=== PATIENT | male | born 1955 | race Caucasian/White ===

== ENCOUNTER → 2018-01-10 07:04 | Outpatient (CLI) | payer OTHER, SELFPAY ==
[2018-01-10 07:24] LABS: Abs Immature Grans 0.16 k/cumm (0.0-0.09); Absolute Basophil Count 0.05 k/cumm (0.0-0.2); Absolute Eosinophil Count 0.03 k/cumm (0.0-0.7); Absolute Lymphocyte Count 1.88 k/cumm (1.2-3.4); Absolute Monocyte Count 1.85 k/cumm (0.11-0.7); Basophils % 0.5; Eosinophils % 0.3; HCT 33.9 % (40.0-50.0); HGB 11.1 g/dL (13.5-17.5); Immature Grans % 1.5; Lymphocytes % 17.3; Mean Corp. HGB Concentration 32.7 g/dL (32.0-36.0); Mean Corpuscular Volume 94.7 fL (80-95); Mean Platelet Volume 9.1 fL (8.0-11.0); Neutrophils % 63.4; RBC 3.58 m/cumm (4.50-6.00); RBC Distribution Width 14.8 % (11.8-14.1); White Blood Cell Count 10.87 k/cumm (4.4-10.8)
[2018-01-10 07:32] LABS: ALT 21 U/L (12-78); AST 19 U/L (15-37); Albumin 3.5 g/dL (3.4-5.0); Alkaline Phosphatase 142 U/L (46-116); Anion Gap 8.8 mmol/L (3-11); BUN 16 mg/dL (7-18); Bilirubin, Total 0.2 mg/dL (0.2-1.0); CO2 26.2 mmol/L (21.0-32.0); CREATININE 1.27 mg/dL (0.70-1.30); Calcium 8.8 mg/dL (8.5-10.1); Chloride 103 mmol/L (98-107); Estimated GFR 57.28 (mL/min/1.73m2); Glucose 111 mg/dL (70-100); Magnesium 2.2 mg/dL (1.8-2.4); Potassium 5.1 mmol/L (3.5-5.1); Sodium 138 mmol/L (136-145)
[2018-01-10 08:09] LABS: Absolute Neutrophil Count 6.89 k/cumm (1.2-6.7)
[2018-01-10 08:12] LABS: Platelet Count 1073 x1000/uL (130-400)
[2018-01-10 08:13] LABS: Anisocytosis 1+; Diff Comment Diff Reviewed; Polychromasia Present
[2018-01-10 08:14] LABS: Poikilocytes 1+
== END ==
PROVIDERS: PCP Nurse Practitioner Family; Visit Provider Internal Medicine
DX: C79.10 Secondary malignant neoplasm of unspecified urinary organs (principal)
CPT/HCPCS: 36415; 80053; 83735; 85025

== ENCOUNTER → 2018-01-17 07:13 | Outpatient (CLI) | payer OTHER, SELFPAY ==
[2018-01-17 07:46] LABS: Abs Immature Grans 0.02 k/cumm (0.0-0.09); Absolute Basophil Count 0.04 k/cumm (0.0-0.2); Absolute Eosinophil Count 0.01 k/cumm (0.0-0.7); Absolute Lymphocyte Count 1.36 k/cumm (1.2-3.4); Absolute Monocyte Count 0.17 k/cumm (0.11-0.7); Absolute Neutrophil Count 7.63 k/cumm (1.2-6.7); Basophils % 0.4; Eosinophils % 0.1; HCT 33.9 % (40.0-50.0); HGB 11.2 g/dL (13.5-17.5); Immature Grans % 0.2; Lymphocytes % 14.7; Mean Corpuscular Hemoglobin 30.9 pg (27.0-33.0); Mean Corpuscular Volume 93.4 fL (80-95); Mean Platelet Volume 9.6 fL (8.0-11.0); Monocytes % 1.8; Neutrophils % 82.8; RBC 3.63 m/cumm (4.50-6.00); RBC Distribution Width 14.9 % (11.8-14.1); White Blood Cell Count 9.23 k/cumm (4.4-10.8)
[2018-01-17 07:50] LABS: Platelet Count 503 x1000/uL (130-400)
[2018-01-17 08:00] LABS: ALT 23 U/L (12-78); AST 17 U/L (15-37); Albumin 3.6 g/dL (3.4-5.0); Alkaline Phosphatase 147 U/L (46-116); Anion Gap 9.7 mmol/L (3-11); BUN 17 mg/dL (7-18); Bilirubin, Total 0.3 mg/dL (0.2-1.0); CO2 26.3 mmol/L (21.0-32.0); CREATININE 1.07 mg/dL (0.70-1.30); Calcium 8.7 mg/dL (8.5-10.1); Chloride 99 mmol/L (98-107); Glucose 103 mg/dL (70-100); Magnesium 1.7 mg/dL (1.8-2.4); Potassium 4.7 mmol/L (3.5-5.1); Sodium 135 mmol/L (136-145); Total Protein 8.1 g/dL (6.4-8.2)
== END ==
PROVIDERS: PCP Nurse Practitioner Family; Visit Provider Internal Medicine
DX: C79.10 Secondary malignant neoplasm of unspecified urinary organs (principal)
CPT/HCPCS: 36415; 80053; 83735; 85025

== ENCOUNTER → 2018-01-31 07:00 | Outpatient (CLI) | payer OTHER, SELFPAY ==
[2018-01-31 07:27] LABS: Abs Immature Grans 1.78 k/cumm (0.0-0.09); HCT 30.9 % (40.0-50.0); HGB 9.9 g/dL (13.5-17.5); Mean Corpuscular Hemoglobin 30.1 pg (27.0-33.0); Mean Corpuscular Volume 93.9 fL (80-95); Mean Platelet Volume 10.4 fL (8.0-11.0); RBC 3.29 m/cumm (4.50-6.00); RBC Distribution Width 16.7 % (11.8-14.1)
[2018-01-31 07:38] LABS: ALT 16 U/L (12-78); AST 13 U/L (15-37); Albumin 3.1 g/dL (3.4-5.0); Alkaline Phosphatase 241 U/L (46-116); BUN 9 mg/dL (7-18); Bilirubin, Total 0.1 mg/dL (0.2-1.0); Calcium 8.1 mg/dL (8.5-10.1); Chloride 106 mmol/L (98-107); Glucose 118 mg/dL (70-100); Magnesium 1.6 mg/dL (1.8-2.4); Potassium 4.1 mmol/L (3.5-5.1); Sodium 139 mmol/L (136-145); Total Protein 6.9 g/dL (6.4-8.2)
[2018-01-31 08:05] LABS: Absolute Eosinophil Count 0.41 k/cumm (0.0-0.7); Absolute Lymphocyte Count 2.49 k/cumm (1.2-3.4); Absolute Monocyte Count 1.24 k/cumm (0.11-0.7); Absolute Neutrophil Count 36.09 k/cumm (1.2-6.7); Nucleated RBC 1 /100WBC; Platelet Count 462 x1000/uL (130-400)
[2018-01-31 08:06] LABS: Hypochromasia 2+; Polychromasia Present
[2018-01-31 08:10] LABS: White Blood Cell Count 41.48 k/cumm (4.4-10.8)
== END ==
PROVIDERS: PCP Nurse Practitioner Family; Visit Provider Nurse Practitioner Adult Health
DX: C79.10 Secondary malignant neoplasm of unspecified urinary organs (principal)
CPT/HCPCS: 36415; 80053; 83735; 85025

== ENCOUNTER → 2018-02-01 11:10 | Outpatient (REF) | payer OTHER, SELFPAY | LOC: LBN 11:10 | PROVIDERS: PCP Nurse Practitioner Family; Visit Provider Nurse Practitioner Adult Health | DX: C79.10 Secondary malignant neoplasm of unspecified urinary organs (principal); C66.2 Malignant neoplasm of left ureter; L08.9 Local infection of the skin and subcutaneous tissue, unspecified | CPT/HCPCS: 87077; 87070; 87186; 87205 ==

== ENCOUNTER 2018-02-08 07:14 | Outpatient (CLI) | payer OTHER, SELFPAY ==
[2018-02-08 08:06] LABS: Abs Immature Grans 0.05 k/cumm (0.0-0.09); Absolute Basophil Count 0.07 k/cumm (0.0-0.2); Absolute Lymphocyte Count 1.49 k/cumm (1.2-3.4); Basophils % 0.5; Eosinophils % 0.5; HCT 34.5 % (40.0-50.0); Immature Grans % 0.3; Lymphocytes % 10.1; Mean Corp. HGB Concentration 31.9 g/dL (32.0-36.0); Mean Corpuscular Hemoglobin 30.6 pg (27.0-33.0); Mean Corpuscular Volume 95.8 fL (80-95); Mean Platelet Volume 10.3 fL (8.0-11.0); Monocytes % 14.1; Neutrophils % 74.5; RBC Distribution Width 18.4 % (11.8-14.1); White Blood Cell Count 14.72 k/cumm (4.4-10.8)
[2018-02-08 08:10] LABS: Absolute Eosinophil Count 0.07 k/cumm (0.0-0.7); Absolute Monocyte Count 2.08 k/cumm (0.11-0.7); Absolute Neutrophil Count 10.97 k/cumm (1.2-6.7)
[2018-02-08 08:23] LABS: ALT 17 U/L (12-78); AST 19 U/L (15-37); Albumin 3.8 g/dL (3.4-5.0); Alkaline Phosphatase 179 U/L (46-116); Anion Gap 7.9 mmol/L (3-11); BUN 15 mg/dL (7-18); Bilirubin, Total 0.4 mg/dL (0.2-1.0); CO2 26.1 mmol/L (21.0-32.0); CREATININE 1.21 mg/dL (0.70-1.30); Calcium 9.1 mg/dL (8.5-10.1); Chloride 103 mmol/L (98-107); Glucose 91 mg/dL (70-100); Magnesium 2.1 mg/dL (1.8-2.4); Potassium 5.1 mmol/L (3.5-5.1); Sodium 137 mmol/L (136-145); Total Protein 7.7 g/dL (6.4-8.2)
[2018-02-08 08:24] LABS: Platelet Count 717 x1000/uL (130-400)
[2018-02-08 08:26] LABS: Anisocytosis 2+; Diff Comment Manual Differential; Poikilocytes 1+
== END 2018-02-08 07:34 ==
PROVIDERS: PCP Nurse Practitioner Family; Visit Provider Internal Medicine
DX: C79.10 Secondary malignant neoplasm of unspecified urinary organs (principal)
CPT/HCPCS: 36415; 80053; 83735; 85025

== ENCOUNTER 2018-02-21 07:01 | Outpatient (CLI) | payer OTHER, SELFPAY ==
[2018-02-21 07:20] LABS: Absolute Basophil Count 0.07 k/cumm (0.0-0.2); Absolute Eosinophil Count 0.28 k/cumm (0.0-0.7); Absolute Lymphocyte Count 1.06 k/cumm (1.2-3.4); Absolute Monocyte Count 0.94 k/cumm (0.11-0.7); Absolute Neutrophil Count 4.21 k/cumm (1.2-6.7); Basophils % 1.1; Eosinophils % 4.3; HCT 37.1 % (40.0-50.0); HGB 11.9 g/dL (13.5-17.5); Lymphocytes % 16.2; Mean Corp. HGB Concentration 32.1 g/dL (32.0-36.0); Mean Corpuscular Volume 96.6 fL (80-95); Mean Platelet Volume 10.7 fL (8.0-11.0); Monocytes % 14.3; Neutrophils % 64.1; Platelet Count 266 x1000/uL (130-400); RBC 3.84 m/cumm (4.50-6.00); RBC Distribution Width 18.1 % (11.8-14.1); White Blood Cell Count 6.56 k/cumm (4.4-10.8)
[2018-02-21 07:42] LABS: ALT 18 U/L (12-78); AST 16 U/L (15-37); Albumin 3.8 g/dL (3.4-5.0); Alkaline Phosphatase 147 U/L (46-116); Anion Gap 7.5 mmol/L (3-11); BUN 19 mg/dL (7-18); Bilirubin, Total 0.3 mg/dL (0.2-1.0); CO2 28.5 mmol/L (21.0-32.0); CREATININE 1.02 mg/dL (0.70-1.30); Calcium 8.8 mg/dL (8.5-10.1); Chloride 104 mmol/L (98-107); Glucose 92 mg/dL (70-100); Magnesium 1.8 mg/dL (1.8-2.4); Potassium 4.8 mmol/L (3.5-5.1); Sodium 140 mmol/L (136-145); Total Protein 8.1 g/dL (6.4-8.2)
== END 2018-02-21 07:21 ==
PROVIDERS: PCP Nurse Practitioner Family; Visit Provider Internal Medicine
DX: C79.10 Secondary malignant neoplasm of unspecified urinary organs (principal)
CPT/HCPCS: 36415; 80053; 83735; 85025

== ENCOUNTER 2018-03-01 06:59 | Outpatient (CLI) | payer OTHER, SELFPAY ==
[2018-03-01 07:25] LABS: Absolute Basophil Count 0.03 k/cumm (0.0-0.2); Absolute Lymphocyte Count 0.99 k/cumm (1.2-3.4); Absolute Monocyte Count 0.08 k/cumm (0.11-0.7); Absolute Neutrophil Count 3.42 k/cumm (1.2-6.7); Basophils % 0.6; Eosinophils % 2.2; HGB 11.5 g/dL (13.5-17.5); Lymphocytes % 21.4; Mean Corp. HGB Concentration 31.9 g/dL (32.0-36.0); Mean Corpuscular Hemoglobin 30.8 pg (27.0-33.0); Mean Corpuscular Volume 96.5 fL (80-95); Mean Platelet Volume 10.5 fL (8.0-11.0); Monocytes % 1.7; Neutrophils % 74.1; Platelet Count 201 x1000/uL (130-400); RBC 3.73 m/cumm (4.50-6.00); RBC Distribution Width 16.5 % (11.8-14.1); White Blood Cell Count 4.62 k/cumm (4.4-10.8)
[2018-03-01 07:43] LABS: ALT 22 U/L (12-78); AST 16 U/L (15-37); Albumin 3.6 g/dL (3.4-5.0); Alkaline Phosphatase 148 U/L (46-116); Anion Gap 9.8 mmol/L (3-11); BUN 21 mg/dL (7-18); Bilirubin, Total 0.4 mg/dL (0.2-1.0); CO2 24.2 mmol/L (21.0-32.0); CREATININE 0.93 mg/dL (0.70-1.30); Calcium 9.1 mg/dL (8.5-10.1); Chloride 102 mmol/L (98-107); Glucose 109 mg/dL (70-100); Magnesium 1.9 mg/dL (1.8-2.4); Potassium 4.8 mmol/L (3.5-5.1); Sodium 136 mmol/L (136-145); Total Protein 7.6 g/dL (6.4-8.2)
== END 2018-03-01 07:19 ==
PROVIDERS: PCP Nurse Practitioner Family; Visit Provider Internal Medicine
DX: C79.10 Secondary malignant neoplasm of unspecified urinary organs (principal)
CPT/HCPCS: 36415; 80053; 83735; 85025

== ENCOUNTER 2018-03-14 12:30 | Outpatient (CLI) | payer OTHER, SELFPAY ==
[2018-03-14 12:50] LABS: Abs Immature Grans 0.28 k/cumm (0.0-0.09); HCT 31.9 % (40.0-50.0); HGB 10.3 g/dL (13.5-17.5); Mean Corp. HGB Concentration 32.3 g/dL (32.0-36.0); Mean Corpuscular Hemoglobin 31.4 pg (27.0-33.0); Mean Corpuscular Volume 97.3 fL (80-95); Mean Platelet Volume 10.2 fL (8.0-11.0); Platelet Count 261 x1000/uL (130-400); RBC 3.28 m/cumm (4.50-6.00); RBC Distribution Width 16.2 % (11.8-14.1)
[2018-03-14 13:02] LABS: ALT 22 U/L (12-78); AST 14 U/L (15-37); Albumin 3.5 g/dL (3.4-5.0); Alkaline Phosphatase 226 U/L (46-116); Anion Gap 7.3 mmol/L (3-11); BUN 11 mg/dL (7-18); Bilirubin, Total 0.1 mg/dL (0.2-1.0); CO2 29.7 mmol/L (21.0-32.0); CREATININE 1.02 mg/dL (0.70-1.30); Calcium 8.8 mg/dL (8.5-10.1); Chloride 104 mmol/L (98-107); Glucose 98 mg/dL (70-100); Magnesium 1.8 mg/dL (1.8-2.4); Potassium 3.9 mmol/L (3.5-5.1); Sodium 141 mmol/L (136-145); Total Protein 7.2 g/dL (6.4-8.2)
[2018-03-14 13:16] LABS: Absolute Monocyte Count 2.42 k/cumm (0.11-0.7); Absolute Neutrophil Count 17.38 k/cumm (1.2-6.7); Diff Comment Manual Differential
[2018-03-14 13:17] LABS: Anisocytosis 1+; Poikilocytes 1+; Polychromasia Present
== END 2018-03-14 12:50 ==
PROVIDERS: PCP Nurse Practitioner Family; Visit Provider Internal Medicine
DX: C79.10 Secondary malignant neoplasm of unspecified urinary organs (principal)
CPT/HCPCS: 36415; 80053; 83735; 85025

== ENCOUNTER 2018-03-22 06:57 | Outpatient (CLI) | payer OTHER, SELFPAY ==
[2018-03-22 07:18] LABS: Abs Immature Grans 0.03 k/cumm (0.0-0.09); Absolute Basophil Count 0.04 k/cumm (0.0-0.2); Absolute Eosinophil Count 0.01 k/cumm (0.0-0.7); Absolute Lymphocyte Count 1.37 k/cumm (1.2-3.4); Absolute Monocyte Count 0.39 k/cumm (0.11-0.7); Absolute Neutrophil Count 5.01 k/cumm (1.2-6.7); Basophils % 0.6; Eosinophils % 0.1; HCT 31.4 % (40.0-50.0); HGB 10.2 g/dL (13.5-17.5); Immature Grans % 0.4; Mean Corp. HGB Concentration 32.5 g/dL (32.0-36.0); Mean Corpuscular Hemoglobin 31.5 pg (27.0-33.0); Mean Corpuscular Volume 96.9 fL (80-95); Mean Platelet Volume 9.8 fL (8.0-11.0); Monocytes % 5.7; Neutrophils % 73.2; Platelet Count 451 x1000/uL (130-400); RBC 3.24 m/cumm (4.50-6.00); RBC Distribution Width 16.3 % (11.8-14.1); White Blood Cell Count 6.85 k/cumm (4.4-10.8)
[2018-03-22 07:47] LABS: ALT 28 U/L (12-78); AST 19 U/L (15-37); Albumin 3.6 g/dL (3.4-5.0); Alkaline Phosphatase 164 U/L (46-116); Anion Gap 9.5 mmol/L (3-11); BUN 19 mg/dL (7-18); Bilirubin, Total 0.4 mg/dL (0.2-1.0); CO2 25.5 mmol/L (21.0-32.0); CREATININE 0.95 mg/dL (0.70-1.30); Calcium 8.4 mg/dL (8.5-10.1); Chloride 104 mmol/L (98-107); Glucose 109 mg/dL (70-100); Magnesium 1.8 mg/dL (1.8-2.4); Potassium 5.1 mmol/L (3.5-5.1); Sodium 139 mmol/L (136-145); Total Protein 7.4 g/dL (6.4-8.2)
== END 2018-03-22 07:17 ==
PROVIDERS: PCP Nurse Practitioner Family; Visit Provider Internal Medicine
DX: C79.10 Secondary malignant neoplasm of unspecified urinary organs (principal)
CPT/HCPCS: 36415; 80053; 83735; 85025

== ENCOUNTER 2018-09-12 07:01 | Outpatient (CLI) | payer OTHER, SELFPAY ==
[2018-09-12 07:27] LABS: Abs Immature Grans 0.01 k/cumm (0.0-0.09); Absolute Basophil Count 0.03 k/cumm (0.0-0.2); Absolute Eosinophil Count 0.15 k/cumm (0.0-0.7); Absolute Lymphocyte Count 1.69 k/cumm (1.2-3.4); Absolute Monocyte Count 0.85 k/cumm (0.11-0.7); Absolute Neutrophil Count 3.08 k/cumm (1.2-6.7); Basophils % 0.5; Eosinophils % 2.6; HCT 38.7 % (40.0-50.0); HGB 12.6 g/dL (13.5-17.5); Immature Grans % 0.2; Lymphocytes % 29.1; Mean Corp. HGB Concentration 32.6 g/dL (32.0-36.0); Mean Corpuscular Volume 95.1 fL (80-95); Mean Platelet Volume 10.3 fL (8.0-11.0); Monocytes % 14.6; Platelet Count 276 x1000/uL (130-400); RBC 4.07 m/cumm (4.50-6.00); RBC Distribution Width 14.9 % (11.8-14.1); White Blood Cell Count 5.81 k/cumm (4.4-10.8)
[2018-09-12 07:37] LABS: ALT 23 U/L (12-78); AST 19 U/L (15-37); Albumin 3.7 g/dL (3.4-5.0); Alkaline Phosphatase 160 U/L (46-116); Anion Gap 8.4 mmol/L (3-11); BUN 12 mg/dL (7-18); Bilirubin, Total 0.3 mg/dL (0.2-1.0); CO2 27.6 mmol/L (21.0-32.0); CREATININE 1.06 mg/dL (0.70-1.30); Calcium 8.6 mg/dL (8.5-10.1); Chloride 104 mmol/L (98-107); Glucose 116 mg/dL (70-100); Potassium 4.4 mmol/L (3.5-5.1); Sodium 140 mmol/L (136-145); Total Protein 7.5 g/dL (6.4-8.2)
== END 2018-09-12 07:21 ==
PROVIDERS: PCP Nurse Practitioner Family; Visit Provider Internal Medicine
DX: C79.10 Secondary malignant neoplasm of unspecified urinary organs (principal)
CPT/HCPCS: 36415; 80053; 85025

== ENCOUNTER 2018-09-17 15:00 | Emergency (ER) | payer OTHER, SELFPAY ==
--- NOTE | 2018-09-17 15:01 | W.ED.GENAD ---
Discharge Plan Disposition Patient Disposition: HOME Condition: Stable Discharge Details Chief Complaint: Abd Prob Clinical Impression: Abdominal pain Primary Care Provider: Felicia Juan ED Provider: Jimbo Fall Home Meds and New Rx's Prescriptions: No Action acetaminophen [Acetaminophen Extra Strength] 500 MG tablet 1,000 mg PO Q6H PRNRF: 0 diphenhydramine HCl 25 MG capsule 50 mg PO Q6H PRNRF: 0 docusate sodium [Colace] 100 MG capsule 100 mg PO BID PRNRF: 0 sennosides [senna] 8.6 MG tablet 2 tab PO BID RF: 0 Discharge Instructions Instructions: Abdominal Pain (ED) Additional Instructions: 1. Drink plenty of fluids. 2. Continue all medications as prescribed. 3. Acetaminophen 1000mg every 4 hours (up to 5 time a day) and/or ibuprofen 600mg every 6 hours as needed for fever or pain. Return to the Emergency Department (ED) if your condition worsens, does not improve as expected, or for ANY other concerns. Specifically, return if you have new or uncontrolled pain, worsening fever, difficulty breathing, vomiting, or are unable to drink fluids. Medical Decision Making 63-year-old with a history of complex lower abdominal surgery and XRT. His original surgery was complicated by bowel perforation and abnormal mesentery. Has been asymptomatic for the past year since his bowel perf repair. Presents with 12 hours of persistent lower abdominal/suprapubic pain. Has no associated fever/chills, abdominal bloating, change in bowel habits, or urinary symptoms. Nonfocal exam except for dry mucosa and minimal suprapubic tenderness (pain out of proportion to exam). Mild clinical improvement with IV hydration and limited IV hydromorphone. Labs normal including a normal leukocytosis, anion gap, and lactate. Abdominal/pelvic CT similar in appearance to one performed last year with a mesenteric scroll but no other significant stigmata of bowel obstruction/ischemia. Patient remained stable and mildly improved on multiple re-evaluations. Discussed unclear etiology of pain including lack of obvious surgical etiology by CT scan and other biomarkers. Discharged home with a plan for OTC analgesia, continued oral hydration, and follow-up. Pt evaluated immediately prior to discharge with improved symptoms, normal vital signs, and tolerating PO. The patient feels appropriate for discharge home. Discussed clinical/diagnostic findings. Discharged with a clear plan for outpatient follow up. Given usual and customary return instructions prior to discharge. Medical Records Medical records reviewed: Yes I reviewed the patient's medical records. Lab Data Lab results reviewed: Yes I reviewed the patient's lab results. Lab results narrative: Lab Results 09/17/18 09/17/18 09/17/18 Range/Units 15:10 15:10 17:25 WBC 10.68 (4.4-10.8) k/cumm RBC 4.40 L (4.50-6.00) m/cumm Hgb 13.7 (13.5-17.5) g/dL Hct 41.1 (40.0-50.0) % MCV 93.4 (80-95) fL MCH 31.1 (27.0-33.0) pg MCHC 33.3 (32.0-36.0) g/dL RDW 14.9 H (11.8-14.1) % Plt Count 310 (130-400) x1000/uL MPV 10.0 (8.0-11.0) fL Immature Gran % 0.2 Neutrophils % 88.0 Lymphocytes % 7.2 Monocytes % 4.1 Eosinophils % 0.3 Basophils % 0.2 Absolute Neutrophils 9.40 H (1.2-6.7) k/cumm Absolute Lymphocytes 0.77 L (1.2-3.4) k/cumm Absolute Monocytes 0.44 (0.11-0.7) k/cumm Absolute Eosinophils 0.03 (0.0-0.7) k/cumm Absolute Basophils 0.02 (0.0-0.2) k/cumm Sodium 138 (136-145) mmol/L Potassium 4.5 (3.5-5.1) mmol/L Chloride 101 (98-107) mmol/L Carbon Dioxide 25.9 (21.0-32.0) mmol/L Anion Gap 11.1 H (3-11) mmol/L BUN 17 (7-18) mg/dL Creatinine 1.15 (0.70-1.30) mg/dL Estimated GFR/1.73 m2 >= 60.00 (mL/min/1.73m2) Glucose 121 H (70-100) mg/dL Lactate (0.6-1.4) mmol/l Calcium 9.5 (8.5-10.1) mg/dL Urine Color Yellow (Yellow) Urine Clarity Clear Urine pH 7.0 (5-8) Ur Specific [place] 1.010 (1.005-1.025) Urine Protein 30 H (Negative) mg/dL Urine Ketones Negative (Negative) mg/dL Urine Blood Negative (Negative) Urine Nitrite Negative (Negative) Urine Bilirubin Negative (Negative) Urine Urobilinogen 0.2 (Up TO 0.2) EU/dL Ur Leukocyte Esterase Negative (Negative) Urine RBC Negative (0-2) Urine WBC 0-2 (0-5) HPF Ur Epithelial Cells Rare (Negative) HPF Urine Crystals (Negative) HPF Urine Bacteria Negative (Negative) HPF Urine Casts Negative (Negative) LPF Urine Mucus Trace (Negative) Ur Culture Indicated? No Urine Glucose Negative (Negative) mg/dL 09/17/18 Range/Units 19:09 WBC (4.4-10.8) k/cumm RBC (4.50-6.00) m/cumm Hgb (13.5-17.5) g/dL Hct (40.0-50.0) % MCV (80-95) fL MCH (27.0-33.0) pg MCHC (32.0-36.0) g/dL RDW (11.8-14.1) % Plt Count (130-400) x1000/uL MPV (8.0-11.0) fL Immature Gran % Neutrophils % Lymphocytes % Monocytes % Eosinophils % Basophils % Absolute Neutrophils (1.2-6.7) k/cumm Absolute Lymphocytes (1.2-3.4) k/cumm Absolute Monocytes (0.11-0.7) k/cumm Absolute Eosinophils (0.0-0.7) k/cumm Absolute Basophils (0.0-0.2) k/cumm Sodium (136-145) mmol/L Potassium (3.5-5.1) mmol/L Chloride (98-107) mmol/L Carbon Dioxide (21.0-32.0) mmol/L Anion Gap (3-11) mmol/L BUN (7-18) mg/dL Creatinine (0.70-1.30) mg/dL Estimated GFR/1.73 m2 (mL/min/1.73m2) Glucose (70-100) mg/dL Lactate 1.2 (0.6-1.4) mmol/l Calcium (8.5-10.1) mg/dL Urine Color (Yellow) Urine Clarity Urine pH (5-8) Ur Specific [place] (1.005-1.025) Urine Protein (Negative) mg/dL Urine Ketones (Negative) mg/dL Urine Blood (Negative) Urine Nitrite (Negative) Urine Bilirubin (Negative) Urine Urobilinogen (Up TO 0.2) EU/dL Ur Leukocyte Esterase (Negative) Urine RBC (0-2) Urine WBC (0-5) HPF Ur Epithelial Cells (Negative) HPF Urine Crystals (Negative) HPF Urine Bacteria (Negative) HPF Urine Casts (Negative) LPF Urine Mucus (Negative) Ur Culture Indicated? Urine Glucose (Negative) mg/dL HPI 63 yo male with a history of a robotic left nephroureterectomy on 09/27/[address] [place] [facility] presented here shortly after his surgery comes with n/v and had a CT diagnostic for a possible sbo. He is was transferred to [facility] [place], treated conservatively, and then d/c'd on 10/05. He subsequently returned with recurrent emesis and ultimately was again transfered to [facility] for surgical repair of a bowel perforation. He has had an unremarkable post procedural course until today when he developed lower abdominal pain. His pain is localized in the suprapubic region at the site of his previous surgeries. He denies fevers/chills, significant nausea, change in bowel habits, or abdominal distention. He has had no urinary symptoms. He also denies chest pain dyspnea, palpitations, or focal extremity swelling or pain. General Date/Time Provider Initiated Documentation: 09/17/18 15:01. Related Data Home Medications Medication Instructions Recorded Confirmed acetaminophen [Acetaminophen Extra 1,000 mg PO Q6H PRN 09/30/17 09/17/18 Strength] diphenhydramine HCl 50 mg PO Q6H PRN 09/30/17 09/17/18 docusate sodium [Colace] 100 mg PO BID PRN 09/30/17 09/17/18 sennosides [Senna] 2 tab PO BID 10/07/17 09/17/18 Allergies Allergy/AdvReac Type Severity Reaction Status Date / Time No Known Allergies Allergy Unverified 09/17/18 15:08 Review of Systems Review of Systems All systems are reviewed and are unremarkable except as noted in HPI and below: CONSTITUTIONAL: no fevers/chills, no weakness or change in appetite EYES: no change in vision HEENT: no throat pain or difficulty swallowing; no neck pain CARDIOVASCULAR: no chest pain, palpitations, leg swelling, or diaphoresis RESPIRATORY: no cough, dyspnea, wheezing GASTROINTESTINAL: abdominal pain localized to the lower abdomen, no hematochezia, melena, nausea/emesis GENITOURINARY: no dysuria, flank pain, MUSCULOSKELETAL: no pack pain, myalgias, arthralgias INTEGUMENTARY: no rash, no wounds NEUROLOGIC: no headache, focal weakness, difficulty with speech, numbness PSYCHIATRIC: no confusion, no anxiety HEME: no easy bruising or bleeding ALLERGIC: no urticaria [facility] Social History Smoking/Tobacco Use Status: Former Tobacco Use Alcohol Intake: never Drug use: Never Substance use type: marijuana Do you feel safe at home: Yes Do you feel safe in your relationship?: Yes Exam Narrative Exam Narrative: Nursing note and vital signs have been reviewed and noted. GENERAL: alert, active, no acute distress, well-nourished HEENT: atraumatic/normocephalic, PERRLA, EOMI, conjunctiva clear, external ears/canals normal, dry oral mucosa NECK: supple, full range of motion, no mass, normal lymphadenopathy, no thyromegaly CARDIOVASCULAR: RRR, no murmurs, nl pulses, no edema PULMONARY: nl effort, no audible wheezing or stridor, nl breath sounds with no focal deficit. no chest wall tenderness ABDOMEN: soft, non-distended, no mass, no organomegaly; minimal suprapubic tenderness with pain out of proportion to exam. EXTREMITY: normal muscle tone, all joints with FROM, no deformity or tenderness SKIN: no exanthem appreciated NEURO: gross motor exam normal, normal stance and gait PSYCH: alert and oriented,
[2018-09-17 15:04] VITALS: BP 121/103; PULSE 61; RESP 20; TEMP 37.1; O2SAT 98
--- NOTE | 2018-09-17 15:05 | ED.GENADUL_ITS ---
Discharge Plan Disposition Patient Disposition: HOME Condition: Stable Discharge Details Chief Complaint: Abd Prob Clinical Impression: Abdominal pain Primary Care Provider: Felicia Juan ED Provider: Jimbo Fall Home Meds and New Rx's Prescriptions: No Action acetaminophen [Acetaminophen Extra Strength] 500 MG tablet 1,000 mg PO Q6H PRNRF: 0 diphenhydramine HCl 25 MG capsule 50 mg PO Q6H PRNRF: 0 docusate sodium [Colace] 100 MG capsule 100 mg PO BID PRNRF: 0 sennosides [senna] 8.6 MG tablet 2 tab PO BID RF: 0 Discharge Instructions Instructions: Abdominal Pain (ED) Additional Instructions: 1. Drink plenty of fluids. 2. Continue all medications as prescribed. 3. Acetaminophen 1000mg every 4 hours (up to 5 time a day) and/or ibuprofen 600mg every 6 hours as needed for fever or pain. Return to the Emergency Department (ED) if your condition worsens, does not improve as expected, or for ANY other concerns. Specifically, return if you have new or uncontrolled pain, worsening fever, difficulty breathing, vomiting, or are unable to drink fluids. Medical Decision Making 63-year-old with a history of complex lower abdominal surgery and XRT. His original surgery was complicated by bowel perforation and abnormal mesentery. Has been asymptomatic for the past year since his bowel perf repair. Presents with 12 hours of persistent lower abdominal/suprapubic pain. Has no associated fever/chills, abdominal bloating, change in bowel habits, or urinary symptoms. Nonfocal exam except for dry mucosa and minimal suprapubic tenderness (pain out of proportion to exam). Mild clinical improvement with IV hydration and limited IV hydromorphone. Labs normal including a normal leukocytosis, anion gap, and lactate. Abdominal/pelvic CT similar in appearance to one performed last year with a mesenteric scroll but no other significant stigmata of bowel obstruction/ischemia. Patient remained stable and mildly improved on multiple re-evaluations. Discussed unclear etiology of pain including lack of obvious surgical etiology by CT scan and other biomarkers. Discharged home with a plan for OTC analgesia, continued oral hydration, and follow-up. Pt evaluated immediately prior to discharge with improved symptoms, normal vital signs, and tolerating PO. The patient feels appropriate for discharge home. Discussed clinical/diagnostic findings. Discharged with a clear plan for outpati ent follow up. Given usual and customary return instructions prior to discharge. Medical Records Medical records reviewed: Yes I reviewed the patient's medical records. Lab Data Lab results reviewed: Yes I reviewed the patient's lab results. Lab results narrative: Lab Results 09/17/18 09/17/18 09/17/18 Range/Units 15:10 15:10 17:25 WBC 10.68 (4.4-10.8) k/cumm RBC 4.40 L (4.50-6.00) m/cumm Hgb 13.7 (13.5-17.5) g/dL Hct 41.1 (40.0-50.0) % MCV 93.4 (80-95) fL MCH 31.1 (27.0-33.0) pg MCHC 33.3 (32.0-36.0) g/dL RDW 14.9 H (11.8-14.1) % Plt Count 310 (130-400) x1000/uL MPV 10.0 (8.0-11.0) fL Immature Gran % 0.2 Neutrophils % 88.0 Lymphocytes % 7.2 Monocytes % 4.1 Eosinophils % 0.3 Basophils % 0.2 Absolute Neutrophils 9.40 H (1.2-6.7) k/cumm Absolute Lymphocytes 0.77 L (1.2-3.4) k/cumm Absolute Monocytes 0.44 (0.11-0.7) k/cumm Absolute Eosinophils 0.03 (0.0-0.7) k/cumm Absolute Basophils 0.02 (0.0-0.2) k/cumm Sodium 138 (136-145) mmol/L Potassium 4.5 (3.5-5.1) mmol/L Chloride 101 (98-107) mmol/L Carbon Dioxide 25.9 (21.0-32.0) mmol/L Anion Gap 11.1 H (3-11) mmol/L BUN 17 (7-18) mg/dL Creatinine 1.15 (0.70-1.30) mg/dL Estimated GFR/1.73 m2 >= 60.00 (mL/min/1.73m2) Glucose 121 H (70-100) mg/dL Lactate (0.6-1.4) mmol/l Calcium 9.5 (8.5-10.1) mg/dL Urine Color Yellow (Yellow) Urine Clarity Clear Urine pH 7.0 (5-8) Ur Specific [place] 1.010 (1.005-1.025) Urine Protein 30 H (Negative) mg/dL Urine Ketones Negative (Negative) mg/dL Urine Blood Negative (Negative) Urine Nitrite Negative (Negative) Urine Bilirubin Negative (Negative) Urine Urobilinogen 0.2 (Up TO 0.2) EU/dL Ur Leukocyte Esterase Negative (Negative) Urine RBC Negative (0-2) Urine WBC 0-2 (0-5) HPF Ur Epithelial Cells Rare (Negative) HPF Urine Crystals (Negative) HPF Urine Bacteria Negative (Negative) HPF Urine Casts Negative (Negative) LPF Urine Mucus Trace (Negative) Ur Culture Indicated? No Urine Glucose Negative (Negative) mg/dL 09/17/18 Range/Units 19:09 WBC (4.4-10.8) k/cumm RBC (4.50-6.00) m/cumm Hgb (13.5-17.5) g/dL Hct (40.0-50.0) % MCV (80-95) fL MCH (27.0-33.0) pg MCHC (32.0-36.0) g/dL RDW (11.8-14.1) % Plt Count (130-400) x1000/uL MPV (8.0-11.0) fL Immature Gran % Neutrophils % Lymphocytes % Monocytes % Eosinophils % Basophils % Absolute Neutrophils (1.2-6.7) k/cumm Absolute Lymphocytes (1.2-3.4) k/cumm Absolute Monocytes (0.11-0.7) k/cumm Absolute Eosinophils (0.0-0.7) k/cumm Absolute Basophils (0.0-0.2) k/cumm Sodium (136-145) mmol/L Potassium (3.5-5.1) mmol/L Chloride (98-107) mmol/L Carbon Dioxide (21.0-32.0) mmol/L Anion Gap (3-11) mmol/L BUN (7-18) mg/dL Creatinine (0.70-1.30) mg/dL Estimated GFR/1.73 m2 (mL/min/1.73m2) Glucose (70-100) mg/dL Lactate 1.2 (0.6-1.4) mmol/l Calcium (8.5-10.1) mg/dL Urine Color (Yellow) Urine Clarity Urine pH (5-8) Ur Specific [place] (1.005-1.025) Urine Protein (Negative) mg/dL Urine Ketones (Negative) mg/dL Urine Blood (Negative) Urine Nitrite (Negative) Urine Bilirubin (Negative) Urine Urobilinogen (Up TO 0.2) EU/dL Ur Leukocyte Esterase (Negative) Urine RBC (0-2) Urine WBC (0-5) HPF Ur Epithelial Cells (Negative) HPF Urine Crystals (Negative) HPF Urine Bacteria (Negative) HPF Urine Casts (Negative) LPF Urine Mucus (Negative) Ur Culture Indicated? Urine Glucose (Negative) mg/dL HPI 63 yo male with a history of a robotic left nephroureterectomy on 09/27/[address] Menjivar at [facility] [place]. He presented here shortly after his surgery comes with n/v and had a CT diagnostic for a possible sbo. [place] is [place] [facility] [place], and then d/c'd on 10/05. He subsequently returned with recurrent emesis and ultimately was again transfered to [facility] for surgical repair of a bowel perforation. He has had an unremarkable post procedural course until today when he developed lower abdominal pain. His pain is localized in the suprapubic region at the site of his previous surgeries. He denies fevers/chills, significant nausea, change in bowel habits, or abdominal distention. He has had no urinary symptoms. He also denies chest pain dyspnea, palpitations, or focal extremity swelling or pain. General Date/Time Provider Initiated Documentation: 09/17/18 15:01 . Related Data Home Medications Medication Instructions Recorded Confirmed acetaminophen [Acetaminophen Extra 1,000 mg PO Q6H PRN 09/30/17 09/17/18 Strength] diphenhydramine HCl 50 mg PO Q6H PRN 09/30/17 09/17/18 docusate sodium [Colace] 100 mg PO BID PRN 09/30/17 09/17/18 sennosides [Senna] 2 tab PO BID 10/07/17 09/17/18 Allergies Allergy/AdvReac Type Severity Reaction Status Date / Time No Known Allergies Allergy Unverified 09/17/18 15:08 Review of Systems Review of Systems All systems are reviewed and are unremarkable except as noted in HPI and below: CONSTITUTIONAL: no fevers/chills, no weakness or change in appetite EYES: no change in vision HEENT: no throat pain or difficulty swallowing; no neck pain CARDIOVASCULAR: no chest pain, palpitations, leg swelling, or diaphoresis RESPIRATORY: no cough, dyspnea, wheezing GASTROINTESTINAL: abdominal pain localized to the lower abdomen, no hematochezia, melena, nausea/emesis GENITOURINARY: no dysuria, flank pain, MUSCULOSKELETAL: no pack pain, myalgias, arthralgias INTEGUMENTARY: no rash, no wounds NEUROLOGIC: no headache, focal weakness, difficulty with speech, numbness PSYCHIATRIC: no confusion, no anxiety HEME: no easy bruising or bleeding ALLERGIC: no urticaria [facility] Social History Smoking/Tobacco Use Status: Former Tobacco Use Alcohol Intake: never Drug use: Never Substance use type: marijuana Do you feel safe at home: Yes Do you feel safe in your relationship?: Yes Exam Narrative Exam Narrative: Nursing note and vital signs have been reviewed and noted. GENERAL: alert, active, no acute distress, well-nourished HEENT: atraumatic/normocephalic, PERRLA, EOMI, conjunctiva clear, external ears/canals normal, dry oral mucosa NECK: supple, full range of motion, no mass, normal lymphadenopathy, no thyromegaly CARDIOVASCULAR: RRR, no murmurs, nl pulses, no edema PULMONARY: nl effort, no audible wheezing or stridor, nl breath sounds with no focal deficit. no chest wall tenderness ABDOMEN: soft, non-distended, no mass, no organomegaly; minimal suprapubic tenderness with pain out of proportion to exam. EXTREMITY: normal muscle tone, all joints with FROM, no deformity or tenderness SKIN: no exanthem appreciated NEURO: gross motor exam normal, normal stance and gait PSYCH: alert and oriented,
[2018-09-17 15:23] LABS: Abs Immature Grans 0.02 k/cumm (0.0-0.09); Absolute Basophil Count 0.02 k/cumm (0.0-0.2); Absolute Eosinophil Count 0.03 k/cumm (0.0-0.7); Absolute Lymphocyte Count 0.77 k/cumm (1.2-3.4); Absolute Monocyte Count 0.44 k/cumm (0.11-0.7); Basophils % 0.2; Eosinophils % 0.3; HCT 41.1 % (40.0-50.0); HGB 13.7 g/dL (13.5-17.5); Immature Grans % 0.2; Lymphocytes % 7.2; Mean Corp. HGB Concentration 33.3 g/dL (32.0-36.0); Mean Corpuscular Hemoglobin 31.1 pg (27.0-33.0); Mean Corpuscular Volume 93.4 fL (80-95); Monocytes % 4.1; Platelet Count 310 x1000/uL (130-400); RBC Distribution Width 14.9 % (11.8-14.1); White Blood Cell Count 10.68 k/cumm (4.4-10.8)
[2018-09-17 15:30] LABS: Anion Gap 11.1 mmol/L (3-11); BUN 17 mg/dL (7-18); CO2 25.9 mmol/L (21.0-32.0); CREATININE 1.15 mg/dL (0.70-1.30); Calcium 9.5 mg/dL (8.5-10.1); Chloride 101 mmol/L (98-107); Glucose 121 mg/dL (70-100); Potassium 4.5 mmol/L (3.5-5.1); Sodium 138 mmol/L (136-145)
[2018-09-17] MEDS: HYDROmorphone 2 MG/ML VIAL 0.5 MG IVP (15:35)
[2018-09-17] MEDS: Normal Saline Flush 10 ML SYR IVP (15:35)
[2018-09-17] MEDS: Omnipaque 350 MG/ML 100 ML BTL IJ (15:54)
--- NOTE | 2018-09-17 16:03 | DI.CT_ITS ---
SYMPTOM/DIAGNOSIS: ABD PAIN ABDOMEN AND PELVIC CT: CT examination of the abdomen and pelvis was performed with a bolus infusion of 100 cc's of Omnipaque 350. Images obtained through the lung bases are unremarkable. There is a 12 mm. in diameter right hepatic lobe hypodensity, this may represent hemangioma but other etiologies are not excluded. This is probably unchanged from examination of 10/07/17. Pancreas is unremarkable in appearance. Gallbladder and bile ducts are unremarkable. No abdominal or pelvic adenopathy. No abdominal aortic aneurysm. No significant abdominal wall hernia. There is nonspecific small bowel dilatation with some abnormal loops of small bowel seen in the pelvis. Question fecalization in possible small bowel in left mid abdomen. Question mild swirl sign of mesenteric vessels, volvulus or internal hernia not excluded. Right kidney and adrenals show no evidence of focal pathology. There is an apparent left nephrectomy. CONCLUSION: Question early small bowel obstruction, mesenteric volvulus or internal hernia not excluded. Appropriate follow up studies requested.
[2018-09-17] MEDS: Metoclopramide 10 MG/2 ML VIAL (16:09)
[2018-09-17] MEDS: Lactated Ringers 1,000 ML 1000 ML IV (16:09)
[2018-09-17] MEDS: HYDROmorphone 2 MG/ML VIAL (16:14)
--- NOTE | 2018-09-17 17:11 | DI.VRAD_ITS ---
Addendum created by Adelita Ozuna MD on 09/17/2018 5:16:46 PM EDT THIS REPORT CONTAINS FINDINGS THAT MAY BE CRITICAL TO PATIENT CARE. The findings were verbally communicated via telephone conference with LAKISHA MA at 5:16 PM EDT on 09/17/2018. The findings were acknowledged and understood. Initial report created on 09/17/2018 5:10:38 PM EDT EXAM: CT Abdomen and Pelvis With Contrast EXAM DATE/TIME: 09/17/2018 3:18 PM CLINICAL HISTORY: 63 years old, male; Pain; Abdominal pain; Generalized; Patient HX: Abdominal pain. TECHNIQUE: Imaging protocol: Axial computed tomography images of the abdomen and pelvis with intravenous contrast. Coronal and sagittal reformatted images were created and reviewed. Radiation optimization: All CT scans at this facility use at least one of these dose optimization techniques: automated exposure control; mA and/or kV adjustment per patient size (includes targeted exams where dose is matched to clinical indication); or iterative reconstruction. COMPARISON: CT ABD PELVIS WITH CONTRAST 10/07/2017 11:59 AM FINDINGS: Lower thorax: There is a partially imaged bulla at the right lung base. There is linear atelectasis or scarring at the lung bases. ABDOMEN: Liver: Series 4 image 11 demonstrates a 1.2 cm hypodensity in the right hepatic lobe measuring 50 Hounsfield units. This does not fulfill the criteria for a simple cyst. There is an adjacent too small to characterize hypodensity (series 6 image 47). There is mild intrahepatic ductal prominence, similar to prior exam. Gallbladder and bile ducts: No gallstones. Pancreas: Normal. No ductal dilation. Spleen: Small probable splenule. No splenomegaly. Adrenals: 1.4 cm for a Hounsfield unit hypodensity in the right adrenal gland which does not fulfill the criteria for an adenoma. On prior unenhanced CT scan dated 09/10/2017, this measured less than 10 Hounsfield units, most consistent with an adenoma. Kidneys and ureters: Status post left nephrectomy. Too small to characterize hypodensity in the right kidney is unchanged. No hydronephrosis. Stomach and bowel: The stomach is tortuous in appearance with wall prominence. There is also some wall prominence of loops of small bowel in the left upper quadrant (series 4 image 39) and within the pelvis (image 62). There is a swirling of left-sided mesenteric vessels on series 4 images 41 through 51. This can be seen with volvulus or internal hernia. At this time no definite small bowel dilation is seen however the bowel is challenging to follow secondary to bowel tortuosity and the lack of intraperitoneal fat. The colon is stool-filled and tortuous. One of the loops of bowel, appreciated on coronal image 28 in the left hemiabdomen could represent a loop of stool filled colon or a dilated loop of small bowel with fecalization (which can be seen secondary to an early or partial small bowel obstruction). Appendix: No evidence of appendicitis. PELVIS: Bladder: There is urinary bladder wall thickening with some regions appearing thicker than others. Reproductive: Heterogeneous prostate. ABDOMEN and PELVIS: Intraperitoneal space: No free air. No significant fluid collection. Bones/joints: No acute fracture. No dislocation. Skeletal degenerative changes. Scattered punctate sclerotic foci in the bones. In the absence of known malignancy, these most likely represent bone. Soft tissues: Unremarkable. Vasculature: Vascular calcifications. Lymph nodes: There are some mildly prominent lymph nodes in the region of the mesenteric swirling. IMPRESSION: 1. There is a swirling of left-sided mesenteric vessels. This can be seen with volvulus or internal hernia. At this time, no definite small bowel dilation is seen. However, the bowel is challenging to follow secondary to bowel tortuosity of the lack of intraperitoneal fat. One of the loops of bowel in the left hemiabdomen, could represent a loop of colon or a dilated loop of small bowel with fecalization (which can be seen secondary to an early or partial small bowel obstruction). A surgical consult may be beneficial. 2. Gastric and small bowel wall prominence. This can be seen with gastroenteritis in the appropriate clinical setting. 3. Mild intrahepatic ductal prominence, similar to prior examination. Correlation with lab values suggested. 4. Urinary bladder wall thickening with some regions appearing thicker than others. This can be seen with infection or pathology. 5. Lesion in the liver that does not fulfill the criteria for a simple cyst. This can be further evaluated with MRI, hepatic mass protocol. Other findings as above. Dictated and Authenticated by: Adelita Ozuna MD. Ordering:TADEO Choi MD
[2018-09-17 17:43] LABS: Bilirubin Negative (Negative); Blood Negative (Negative); Clarity Clear; Glucose Negative (Negative); Ketones Negative (Negative); Leukocyte Esterase Negative (Negative); Nitrite Negative (Negative); Urobilinogen 0.2 EU/dL (Up TO 0.2)
[2018-09-17 17:58] LABS: Bacteria Negative HPF (Negative); C & S Indicated? No; Casts Negative LPF (Negative); Epithelial Cells Rare HPF (Negative); Mucus Trace (Negative); RBC Negative (0-2); WBC 0-2 HPF (0-5)
[2018-09-17 19:14] VITALS: BP 132/78; PULSE 64; RESP 18; TEMP 37; O2SAT 97
[2018-09-17 19:19] LABS: Lactate-non-spesis 1.2 mmol/l (0.6-1.4)
[2018-09-17 19:26] VITALS: BP 132/78; PULSE 64; RESP 18; TEMP 37; O2SAT 97
== END 2018-09-17 19:38 | disposition home or self-care (01) ==
PROVIDERS: Emergency Provider Emergency Medicine; PCP Nurse Practitioner Family
DX: R10.33 Periumbilical pain (principal)
CPT/HCPCS: 36415; 80048; 96361; 96374; 99285; 74177; 81003; 81015; 83605; 85025; 99284; J2765; J3490

== ENCOUNTER 2018-09-18 06:41 | Emergency (ER) | payer OTHER, SELFPAY ==
[2018-09-18 06:51] VITALS: BP 140/73; PULSE 58; RESP 12; TEMP 37.1; O2SAT 98
--- NOTE | 2018-09-18 06:59 | W.ED.GENAD ---
Discharge Plan Disposition Patient Disposition: [facility] Condition: Stable Discharge Details Chief Complaint: Abd Prob Clinical Impression: Small bowel obstruction, Gastric mass, History of left nephrectomy Primary Care Provider: Felicia Juan ED Provider: Vale Mancilla Home Meds and New Rx's Prescriptions: No Action acetaminophen [Acetaminophen Extra Strength] 500 MG tablet 1,000 mg PO Q6H PRNRF: 0 diphenhydramine HCl 25 MG capsule 50 mg PO Q6H PRNRF: 0 docusate sodium [Colace] 100 MG capsule 100 mg PO BID PRNRF: 0 sennosides [senna] 8.6 MG tablet 2 tab PO BID RF: 0 Discharge Data Discharge Date/Time-TO BE ENTERED AT DEPARTURE: 09/18/18 14:09 Medical Decision Making <Melo Paige MD - Last Filed: 09/18/18 20:32> 63 yo male with a history of a robotic left nephroureterectomy on 09/27/[address] [place] [facility] [place] and subsequently had to be reoperated on for bowel perforation and had imaging shortly after this. He came to the ED yesterday with abdominal pain with negative labs and a CT showing swirling of left sided mesenteric mvessels that can be seen with volvulus or internal hernia which was seen on his CT last October. he had ressuring exam and so was d/c'd. Paient states since d/c has had pain despite oral dilaudid from his previous surgery so came back here for an eval. He is in no distress, he has a thin abdomen with healed surgical scars and pain with palpation to these and also luq. Has no distention or rebound tenderness. Given unclear sbo will obtain CT today with oral contrast to help delineate this among other pathologies. pt remains stable, will be signed out pending imaging results Differential Diagnosis sbo, volvulus, bowel perforation <Vale Mancilla DO - Last Filed: 09/19/18 20:04> Please see Dr. Paige's note for initial presentation, exam and plan. Patient is a 63-year-old male with a history of bladder cancer treated with multiple resections as well as renal carcinoma treated with left nephrectomy in 2018 complicated by bowel perforation status post repair at [facility] who presents with left-sided abdominal pain for the past 2 days. He states the pain is constant, sharp, and extends from the left mid to left lower quadrant. States the pain is currently 4/10. It is worse with laying on his left side and better with nothing. He vomited 3 times yesterday morning and not since then. States the vomitus mainly consisted of food. His last bowel movement was yesterday and denies any diarrhea or blood. He denies fever, recent antibiotics, recent travel, sick contacts, urinary symptoms. Patient was seen here yesterday for the same complaint and had lab work which was unremarkable and a CT abdomen and pelvis with IV contrast that noted swelling of the left-sided mesenteric vessels which could be seen with volvulus or internal hernia but no definite small bowel dilation but there was questionable loop of colon or dilated loop of small bowel with equalization which could be seen with an early or partial small bowel obstruction. There is also noted gastric and small bowel wall prominence. Patient states he was offered admission at that time but declined and was told to return if worse. Patient returned to the ER early this morning with persistent pain. Dr. Paige ordered labs and repeat CT imaging, now w/ PO contrast. The CT abdomen and pelvis today noted a 4 cm filling defect in the lateral aspect of the stomach which could represent focal gastric mass versus atypical fold. The jejunum was also noted to be dilated which could be consistent with an obstruction. CT chest negative for PE or dissection. Discussed with our surgery senior information security analyst and she recommends discussion with [facility] surgery. [id number] -- discussed with general surgery on-call Dr. Hernandez at [facility] - accepts patient for transfer to the emergency department for evaluation there. Recommends NG tube if patient complains of severe nausea or begins vomiting. Patient is agreeable with plan for transfer. He denies any nausea at this time. Medical Records Medical records reviewed: Yes I reviewed the patient's medical records. Imaging Data Radiologic Study: Radiologist's impression: CT Angiography Chest With Contrast EXAM DATE/TIME: 09/18/2018 6:57 AM FINDINGS: Pulmonary arteries: No evidence of pulmonary embolus to the segmental level. Aorta: No aneurysm of the aorta. No dissection of the aorta. Lungs: Mild panlobular emphysematous changes Mild opacities in the apices may represent fibrosis from chronic lung changes, atelectasis, or infection, or tumor. Pleural space: Normal. No pneumothorax. No pleural effusion. Heart: Normal. No cardiomegaly. No pericardial effusion. Lymph nodes: Unremarkable. No enlarged lymph nodes. Bones/joints: Unremarkable. No acute fracture. Soft tissues: Unremarkable. IMPRESSION: 1. No evidence of pulmonary embolus to the segmental level. 2. No aneurysm of the aorta. 3. No dissection of the aorta. 4. Mild opacities in the apices may represent fibrosis from chronic lung changes, atelectasis, or infection, or tumor. CT Abdomen and Pelvis With Contrast EXAM DATE/TIME: 09/18/2018 6:57 AM FINDINGS: Lower thorax: See the report for CT chest ABDOMEN: Liver: Stable 11 mm low-attenuation nodule in the dome of the liver. Mild intrahepatic ductal dilatation. Gallbladder and bile ducts: No gallstones Pancreas: Normal. No ductal dilation. Spleen: Normal. No splenomegaly. Adrenals: The adrenals are stable in appearance. Kidneys and ureters: Absence of the left kidney. Right kidney is stable. Stomach and bowel: 4 cm filling defect in the lateral aspect of the stomach (4:29).. This may represent focal gastric mass versus atypical fold. Recommend endoscopy for further evaluation. The jejunum is dilated and then tapers . The contrast does not extend past the anterior aspect of the abdomen (4:45.) There is evidence of slow motility in this region consistent with obstruction.. Distal small bowel has a more normal caliber. Persistent swirling of the vessels was described on the prior study. This has unknown clinical significance. Appendix: No evidence of appendicitis. PELVIS: Bladder: Contrast in the bladder. Reproductive: Unremarkable as visualized. ABDOMEN and PELVIS: Intraperitoneal space: Normal. No free air. No significant fluid collection. Bones/joints: No acute fracture. No dislocation. Soft tissues: Unremarkable. Vasculature: Normal. No abdominal aortic aneurysm. Lymph nodes: Normal. No enlarged lymph nodes. IMPRESSION: 1. 4 cm filling defect in the lateral aspect of the stomach (4:29).. This may represent focal gastric mass versus atypical fold. Recommend endoscopy for further evaluation. 2. The jejunum is dilated and then tapers . The contrast does not extend past the anterior aspect of the abdomen (4:45.) There is evidence of slow motility in this region consistent with obstruction.. 3. Absence of the left kidney. Right kidney is stable. 4. Persistent swirling of the vessels was described on the prior study. This has unknown clinical significance. Lab Data Lab results reviewed: Yes I reviewed the patient's lab results. Laboratory Tests Range/Units 09/18/18 09/18/18 09/18/18 07:05 07:05 07:05 WBC (4.4-10.8) k/cumm RBC (4.50-6.00) m/cumm Hgb (13.5-17.5) g/dL Hct (40.0-50.0) % MCV (80-95) fL MCH (27.0-33.0) pg MCHC (32.0-36.0) g/dL RDW (11.8-14.1) % Plt Count (130-400) x1000/uL MPV (8.0-11.0) fL Immature Gran % Neutrophils % Lymphocytes % Monocytes % Eosinophils % Basophils % Absolute Neutrophils (1.2-6.7) k/cumm Absolute Lymphocytes (1.2-3.4) k/cumm Absolute Monocytes (0.11-0.7) k/cumm Absolute Eosinophils (0.0-0.7) k/cumm Absolute Basophils (0.0-0.2) k/cumm PT (9.3-11.0) sec 10.1 INR (0.9-1.1) 1.0 APTT (21.0-31.4) sec 25.0 Sodium (136-145) mmol/L 137 Potassium (3.5-5.1) mmol/L 4.2 Chloride (98-107) mmol/L 100 Carbon Dioxide (21.0-32.0) mmol/L 26.1 Anion Gap (3-11) mmol/L 10.9 BUN (7-18) mg/dL 14 Creatinine (0.70-1.30) mg/dL 1.13 Estimated GFR/1.73 m2 (mL/min/1.73m2) >= 60.00 Glucose (70-100) mg/dL 111 H Lactate (0.6-1.4) mmol/l 1.2 Calcium (8.5-10.1) mg/dL 9.3 Magnesium (1.8-2.4) mg/dL 1.6 L Total Bilirubin (0.2-1.0) mg/dL 0.9 Conjugated Bilirubin (0.00-0.20) mg/dL 0.18 AST (15-37) U/L 18 ALT (12-78) U/L 25 Alkaline Phosphatase (46-116) U/L 187 H Total Protein (6.4-8.2) g/dL 8.5 H Albumin (3.4-5.0) g/dL 4.3 Lipase (73-393) U/L 191 Urine Color (Yellow) Urine Clarity Urine pH (5-8) Ur Specific [place] (1.005-1.025) Urine Protein (Negative) mg/dL Urine Ketones (Negative) mg/dL Urine Blood (Negative) Urine Nitrite (Negative) Urine Bilirubin (Negative) Urine Urobilinogen (Up TO 0.2) EU/dL Ur Leukocyte Esterase (Negative) Urine RBC (0-2) Urine WBC (0-5) HPF Ur Epithelial Cells (Negative) HPF Urine Crystals (Negative) HPF Urine Bacteria (Negative) HPF Urine Casts (Negative) LPF Urine Mucus (Negative) Ur Culture Indicated? Urine Glucose (Negative) mg/dL Range/Units 09/18/18 09/18/18 07:05 10:14 WBC (4.4-10.8) k/cumm 10.20 RBC (4.50-6.00) m/cumm 4.39 L Hgb (13.5-17.5) g/dL 13.7 Hct (40.0-50.0) % 41.1 MCV (80-95) fL 93.6 MCH (27.0-33.0) pg 31.2 MCHC (32.0-36.0) g/dL 33.3 RDW (11.8-14.1) % 15.2 H Plt Count (130-400) x1000/uL 314 MPV (8.0-11.0) fL 11.0 Immature Gran % 0.1 Neutrophils % 80.2 Lymphocytes % 10.8 Monocytes % 8.5 Eosinophils % 0.2 Basophils % 0.2 Absolute Neutrophils (1.2-6.7) k/cumm 8.18 H Absolute Lymphocytes (1.2-3.4) k/cumm 1.10 L Absolute Monocytes (0.11-0.7) k/cumm 0.87 H Absolute Eosinophils (0.0-0.7) k/cumm 0.02 Absolute Basophils (0.0-0.2) k/cumm 0.02 PT (9.3-11.0) sec INR (0.9-1.1) APTT (21.0-31.4) sec Sodium (136-145) mmol/L Potassium (3.5-5.1) mmol/L Chloride (98-107) mmol/L Carbon Dioxide (21.0-32.0) mmol/L Anion Gap (3-11) mmol/L BUN (7-18) mg/dL Creatinine (0.70-1.30) mg/dL Estimated GFR/1.73 m2 (mL/min/1.73m2) Glucose (70-100) mg/dL Lactate (0.6-1.4) mmol/l Calcium (8.5-10.1) mg/dL Magnesium (1.8-2.4) mg/dL Total Bilirubin (0.2-1.0) mg/dL Conjugated Bilirubin (0.00-0.20) mg/dL AST (15-37) U/L ALT (12-78) U/L Alkaline Phosphatase (46-116) U/L Total Protein (6.4-8.2) g/dL Albumin (3.4-5.0) g/dL Lipase (73-393) U/L Urine Color (Yellow) Yellow Urine Clarity Clear Urine pH (5-8) 5.5 Ur Specific [place] (1.005-1.025) 1.010 Urine Protein (Negative) mg/dL Trace H Urine Ketones (Negative) mg/dL Negative Urine Blood (Negative) Trace-intact H Urine Nitrite (Negative) Negative Urine Bilirubin (Negative) Negative Urine Urobilinogen (Up TO 0.2) EU/dL 0.2 Ur Leukocyte Esterase (Negative) Negative Urine RBC (0-2) Negative Urine WBC (0-5) HPF 3-5 Ur Epithelial Cells (Negative) HPF Negative Urine Crystals (Negative) HPF Negative Urine Bacteria (Negative) HPF Negative Urine Casts (Negative) LPF Negative Urine Mucus (Negative) Negative Ur Culture Indicated? No Urine Glucose (Negative) mg/dL Negative HPI <Melo Paige MD - Last Filed: 09/18/18 20:32> General Mode of arrival: ambulatory. Date/Time Provider Initiated Documentation: 09/18/18 06:44. Limitations to Documentation: no limitations. Information obtained by: patient. History of Present Illness 63 year old M presents to the emergency department with the chief complaint of abdominal pain, described as moderate, Quality is described as stabbing, and is localized to the abdomen. Patient reports no radiation. Patient started experiencing this day(s) (1) and it has been constant. No relieving factors improve symptom(s), No exacerbating factors reported . Patient notes no other symptoms.. Patient did receive the following treatments prior to arrival, other (oral dilaudid) Related Data Home Medications Medication Instructions Recorded Confirmed acetaminophen [Acetaminophen Extra 1,000 mg PO Q6H PRN 09/30/17 09/18/18 Strength] diphenhydramine HCl 50 mg PO Q6H PRN 09/30/17 09/18/18 docusate sodium [Colace] 100 mg PO BID PRN 09/30/17 09/18/18 sennosides [Senna] 2 tab PO BID 10/07/17 09/18/18 Allergies Allergy/AdvReac Type Severity Reaction Status Date / Time No Known Allergies Allergy Unverified 09/18/18 06:54 General Stated Complaint: Abd Prob CHRIS: 3 Review of Systems <Melo Paige MD - Last Filed: 09/18/18 20:32> Review of Systems All systems reviewed & are unremarkable except as noted in HPI and below Constitutional Denies chills and Denies fever(s) Cardiovascular Denies chest pain and Denies dyspnea Respiratory Denies cough and Denies dyspnea Gastrointestinal Denies vomiting Genitourinary Denies dysuria PFSH <Melo Paige MD - Last Filed: 09/18/18 20:32> Social History Smoking/Tobacco Use Status: Former Tobacco Use Alcohol Intake: never Drug use: Never Substance use type: marijuana Do you feel safe at home: Yes Do you feel safe in your relationship?: Yes Exam <Melo Paige MD - Last Filed: 09/18/18 20:32> Const General: no acute distress Orientation: alert HENTN Head: normal to inspection Ears: external ears normal General nose exam: external nose normal Mouth: moist mucous membranes Eyes General: appearance normal, both eyes and all related structures Neck Neck: normal visual inspection Resp Effort & Inspection: normal respiratory effort and able to speak in complete sentences Cardio Rate: regular rate GI Palpation: soft Skin General skin exam: no rashes or lesions noted Neuro General: alert and oriented x3 Extrem General: normal to inspection Psych Mental Status: mental status grossly normal Course <Melo Paige MD - Last Filed: 09/18/18 20:32> Vital Signs Temperature 37.1 C 09/18/18 06:51 Pulse 58 L 09/18/18 06:51 Respiratory Rate 12 09/18/18 06:51 Blood Pressure 140/73 09/18/18 06:51 Pulse Oximetry 98 09/18/18 06:51 Temperature 37.1 C 09/18/18 06:51 Temperature Source Temporal Artery Scan 09/18/18 06:51 Pulse 58 L 09/18/18 06:51 Respiratory Rate 12 09/18/18 06:51 Respiratory Effort Non-Labored 09/18/18 06:53 Blood Pressure 140/73 09/18/18 06:51 Blood Pressure Position Sitting 09/18/18 06:51 Pulse Oximetry 98 09/18/18 06:51 Oxygen Delivery Method Room Air 09/18/18 06:51 Oxygen Flow Rate 0 09/18/18 06:51 Pain Level 8 09/18/18 06:51 Sign Out <Melo Paige MD - Last Filed: 09/18/18 20:32> Sign Out Data: Sign Out Comment: f/u on imaging results, pt with prior hx of nephrectomy and had ct yesterday showing unclear results Last updated by Melo Paige MD at 09/18/18 07:17
--- NOTE | 2018-09-18 07:03 | ED.GENADUL_ITS ---
Discharge Plan Disposition Patient Disposition: [facility] Condition: Stable Discharge Details Chief Complaint: Abd Prob Clinical Impression: Small bowel obstruction, Gastric mass, History of left nephrectomy Primary Care Provider: Felicia Juan ED Provider: Vale Mancilla Home Meds and New Rx's Prescriptions: No Action acetaminophen [Acetaminophen Extra Strength] 500 MG tablet 1,000 mg PO Q6H PRNRF: 0 diphenhydramine HCl 25 MG capsule 50 mg PO Q6H PRNRF: 0 docusate sodium [Colace] 100 MG capsule 100 mg PO BID PRNRF: 0 sennosides [senna] 8.6 MG tablet 2 tab PO BID RF: 0 Discharge Data Discharge Date/Time-TO BE ENTERED AT DEPARTURE: 09/18/18 14:09 Medical Decision Making <Melo Paige MD - Last Filed: 09/18/18 20:32> 63 yo male with a history of a robotic left nephroureterectomy on 09/27/[address] Menjivar at [facility] urology and subsequently had to be reoperated on for bowel perforation and had imaging shortly after this. He came to the ED yesterday with abdominal pain with negative labs and a CT showing swirling of left sided mesenteric mvessels that can be seen with volvulus or internal hernia which was seen on his CT last October. he had ressuring exam and so was d/c'd. Paient states since d/c has had pain despite oral dilaudid from his previous surgery so came back here for an eval. He is in no distress, he has a thin abdomen with healed surgical scars and pain with palpation to these and also luq. Has no distention or rebound tenderness. Given unclear sbo will obtain CT today with oral contrast to help delineate this among other pathologies. pt remains stable, will be signed out pending imaging results Differential Diagnosis sbo, volvulus, bowel perforation <Vale Mancilla DO - Last Filed: 09/19/18 20:04> Please see Dr. Paige's note for initial presentation, exam and plan. Patient is a 63-year-old male with a history of bladder cancer treated with multiple resections as well as renal carcinoma treated with left nephrectomy in 2018 complicated by bowel perforation status post repair at [facility] who presents with left-sided abdominal pain for the past 2 days. He states the pain is constant, sharp, and extends from the left mid to left lower quadrant. States the pain is currently 4/10. It is worse with laying on his left side and better with nothing. He vomited 3 times yesterday morning and not since then. States the vomitus mainly consisted of food. His last bowel movement was yesterday and denies any diarrhea or blood. He denies fever, recent antibiotics, recent travel, sick contacts, urinary symptoms. Patient was seen here yesterday for the same complaint and had lab work which was unremarkable and a CT abdomen and pelvis with IV contrast that noted s welling of the left-sided mesenteric vessels which could be seen with volvulus or internal hernia but no definite small bowel dilation but there was questionable loop of colon or dilated loop of small bowel with equalization which could be seen with an early or partial small bowel obstruction. There is also noted gastric and small bowel wall prominence. Patient states he was offered admission at that time but declined and was told to return if worse. Patient returned to the ER early this morning with persistent pain. Dr. Paige ordered labs and repeat CT imaging, now w/ PO contrast. The CT abdomen and pelvis today noted a 4 cm filling defect in the lateral aspect of the stomach which could represent focal gastric mass versus atypical fold. The jejunum was also noted to be dilated which could be consistent with an obstruction. CT chest negative for PE or dissection. Discussed with our surgery group contract analyst and she recommends discussion with [facility] surgery. [id number] -- discussed with general surgery on-call Dr. Hernandez at [facility] - accepts patient for transfer to the emergency department for evaluation there. Recommends NG tube if patient complains of severe nausea or begins vomiting. Patient is agreeable with plan for transfer. He denies any nausea at this time. Medical Records Medical records reviewed: Yes I reviewed the patient's medical records. Imaging Data Radiologic Study: Radiologist's impression: CT Angiography Chest With Contrast EXAM DATE/TIME: 09/18/2018 6:57 AM FINDINGS: Pulmonary arteries: No evidence of pulmonary embolus to the segmental level. Aorta: No aneurysm of the aorta. No dissection of the aorta. Lungs: Mild panlobular emphysematous changes Mild opacities in the apices may represent fibrosis from chronic lung changes, atelectasis, or infection, or tumor. Pleural space: Normal. No pneumothorax. No pleural effusion. Heart: Normal. No cardiomegaly. No pericardial effusion. Lymph nodes: Unremarkable. No enlarged lymph nodes. Bones/joints: Unremarkable. No acute fracture. Soft tissues: Unremarkable. IMPRESSION: 1. No evidence of pulmonary embolus to the segmental level. 2. No aneurysm of the aorta. 3. No dissection of the aorta. 4. Mild opacities in the apices may represent fibrosis from chronic lung changes, atelectasis, or infection, or tumor. CT Abdomen and Pelvis With Contrast EXAM DATE/TIME: 09/18/2018 6:57 AM FINDINGS: Lower thorax: See the report for CT chest ABDOMEN: Liver: Stable 11 mm low-attenuation nodule in the dome of the liver. Mild intrahepatic ductal dilatation. Gallbladder and bile ducts: No gallstones Pancreas: Normal. No ductal dilation. Spleen: Normal. No splenomegaly. Adrenals: The adrenals are stable in appearance. Kidneys and ureters: Absence of the left kidney. Right kidney is stable. Stomach and bowel: 4 cm filling defect in the lateral aspect of the stomach (4:29).. This may represent focal gastric mass versus atypical fold. Recommend endoscopy for further evaluation. The jejunum is dilated and then tapers . The contrast does not extend past the anterior aspect of the abdomen (4:45.) There is evidence of slow motility in this region consistent with obstruction.. Distal small bowel has a more normal caliber. Persistent swirling of the vessels was described on the prior study. This has unknown clinical significance. Appendix: No evidence of appendicitis. PELVIS: Bladder: Contrast in the bladder. Reproductive: Unremarkable as visualized. ABDOMEN and PELVIS: Intraperitoneal space: Normal. No free air. No significant fluid collection. Bones/joints: No acute fracture. No dislocation. Soft tissues: Unremarkable. Vasculature: Normal. No abdominal aortic aneurysm. Lymph nodes: Normal. No enlarged lymph nodes. IMPRESSION: 1. 4 cm filling defect in the lateral aspect of the stomach (4:29).. This may represent focal gastric mass versus atypical fold. Recommend endoscopy for further evaluation. 2. The jejunum is dilated and then tapers . The contrast does not extend past the anterior aspect of the abdomen (4:45.) There is evidence of slow motility in this region consistent with obstruction.. 3. Absence of the left kidney. Right kidney is stable. 4. Persistent swirling of the vessels was described on the prior study. This has unknown clinical significance. Lab Data Lab results reviewed: Yes I reviewed the patient's lab results. Laboratory Tests Range/Units 09/18/18 09/18/18 09/18/18 07:05 07:05 07:05 WBC (4.4-10.8) k/cumm RBC (4.50-6.00) m/cumm Hgb (13.5-17.5) g/dL Hct (40.0-50.0) % MCV (80-95) fL MCH (27.0-33.0) pg MCHC (32.0-36.0) g/dL RDW (11.8-14.1) % Plt Count (130-400) x1000/uL MPV (8.0-11.0) fL Immature Gran % Neutrophils % Lymphocytes % Monocytes % Eosinophils % Basophils % Absolute Neutrophils (1.2-6.7) k/cumm Absolute Lymphocytes (1.2-3.4) k/cumm Absolute Monocytes (0.11-0.7) k/cumm Absolute Eosinophils (0.0-0.7) k/cumm Absolute Basophils (0.0-0.2) k/cumm PT (9.3-11.0) sec 10.1 INR (0.9-1.1) 1.0 APTT (21.0-31.4) sec 25.0 Sodium (136-145) mmol/L 137 Potassium (3.5-5.1) mmol/L 4.2 Chloride (98-107) mmol/L 100 Carbon Dioxide (21.0-32.0) mmol/L 26.1 Anion Gap (3-11) mmol/L 10.9 BUN (7-18) mg/dL 14 Creatinine (0.70-1.30) mg/dL 1.13 Estimated GFR/1.73 m2 (mL/min/1.73m2) >= 60.00 Glucose (70-100) mg/dL 111 H Lactate (0.6-1.4) mmol/l 1.2 Calcium (8.5-10.1) mg/dL 9.3 Magnesium (1.8-2.4) mg/dL 1.6 L Total Bilirubin (0.2-1.0) mg/dL 0.9 Conjugated Bilirubin (0.00-0.20) mg/dL 0.18 AST (15-37) U/L 18 ALT (12-78) U/L 25 Alkaline Phosphatase (46-116) U/L 187 H Total Protein (6.4-8.2) g/dL 8.5 H Albumin (3.4-5.0) g/dL 4.3 Lipase (73-393) U/L 191 Urine Color (Yellow) Urine Clarity Urine pH (5-8) Ur Specific [place] (1.005-1.025) Urine Protein (Negative) mg/dL Urine Ketones (Negative) mg/dL Urine Blood (Negative) Urine Nitrite (Negative) Urine Bilirubin (Negative) Urine Urobilinogen (Up TO 0.2) EU/dL Ur Leukocyte Esterase (Negative) Urine RBC (0-2) Urine WBC (0-5) HPF Ur Epithelial Cells (Negative) HPF Urine Crystals (Negative) HPF Urine Bacteria (Negative) HPF Urine Casts (Negative) LPF Urine Mucus (Negative) Ur Culture Indicated? Urine Glucose (Negative) mg/dL Range/Units 09/18/18 09/18/18 07:05 10:14 WBC (4.4-10.8) k/cumm 10.20 RBC (4.50-6.00) m/cumm 4.39 L Hgb (13.5-17.5) g/dL 13.7 Hct (40.0-50.0) % 41.1 MCV (80-95) fL 93.6 MCH (27.0-33.0) pg 31.2 MCHC (32.0-36.0) g/dL 33.3 RDW (11.8-14.1) % 15.2 H Plt Count (130-400) x1000/uL 314 MPV (8.0-11.0) fL 11.0 Immature Gran % 0.1 Neutrophils % 80.2 Lymphocytes % 10.8 Monocytes % 8.5 Eosinophils % 0.2 Basophils % 0.2 Absolute Neutrophils (1.2-6.7) k/cumm 8.18 H Absolute Lymphocytes (1.2-3.4) k/cumm 1.10 L Absolute Monocytes (0.11-0.7) k/cumm 0.87 H Absolute Eosinophils (0.0-0.7) k/cumm 0.02 Absolute Basophils (0.0-0.2) k/cumm 0.02 PT (9.3-11.0) sec INR (0.9-1.1) APTT (21.0-31.4) sec Sodium (136-145) mmol/L Potassium (3.5-5.1) mmol/L Chloride (98-107) mmol/L Carbon Dioxide (21.0-32.0) mmol/L Anion Gap (3-11) mmol/L BUN (7-18) mg/dL Creatinine (0.70-1.30) mg/dL Estimated GFR/1.73 m2 (mL/min/1.73m2) Glucose (70-100) mg/dL Lactate (0.6-1.4) mmol/l Calcium (8.5-10.1) mg/dL Magnesium (1.8-2.4) mg/dL Total Bilirubin (0.2-1.0) mg/dL Conjugated Bilirubin (0.00-0.20) mg/dL AST (15-37) U/L ALT (12-78) U/L Alkaline Phosphatase (46-116) U/L Total Protein (6.4-8.2) g/dL Albumin (3.4-5.0) g/dL Lipase (73-393) U/L Urine Color (Yellow) Yellow Urine Clarity Clear Urine pH (5-8) 5.5 Ur Specific [place] (1.005-1.025) 1.010 Urine Protein (Negative) mg/dL Trace H Urine Ketones (Negative) mg/dL Negative Urine Blood (Negative) Trace-intact H Urine Nitrite (Negative) Negative Urine Bilirubin (Negative) Negative Urine Urobilinogen (Up TO 0.2) EU/dL 0.2 Ur Leukocyte Esterase (Negative) Negative Urine RBC (0-2) Negative Urine WBC (0-5) HPF 3-5 Ur Epithelial Cells (Negative) HPF Negative Urine Crystals (Negative) HPF Negative Urine Bacteria (Negative) HPF Negative Urine Casts (Negative) LPF Negative Urine Mucus (Negative) Negative Ur Culture Indicated? No Urine Glucose (Negative) mg/dL Negative HPI <Melo Paige MD - Last Filed: 09/18/18 20:32> General Mode of arrival: ambulatory . Date/Time Provider Initiated Documentation: 09/18/18 06:44 . Limitations to Documentation: no limitations . Information obtained by: patient . History of Present Illness 63 year old M presents to the emergency department with the chief complaint of abdominal pain, described as moderate, Quality is described as stabbing, and is localized to the abdomen. Patient reports no radiation. Patient started experiencing this day(s) (1) and it has been constant. No relieving factors improve symptom(s), No exacerbating factors reported . Patient notes no other symptoms.. Patient did receive the following treatments prior to arrival, other (oral dilaudid) Related Data Home Medications Medication Instructions Recorded Confirmed acetaminophen [Acetaminophen Extra 1,000 mg PO Q6H PRN 09/30/17 09/18/18 Strength] diphenhydramine HCl 50 mg PO Q6H PRN 09/30/17 09/18/18 docusate sodium [Colace] 100 mg PO BID PRN 09/30/17 09/18/18 sennosides [Senna] 2 tab PO BID 10/07/17 09/18/18 Allergies Allergy/AdvReac Type Severity Reaction Status Date / Time No Known Allergies Allergy Unverified 09/18/18 06:54 General Stated Complaint: Abd Prob CHRIS: 3 Review of Systems <Melo Paige MD - Last Filed: 09/18/18 20:32> Review of Systems All systems reviewed & are unremarkable except as noted in HPI and below Constitutional Denies chills and Denies fever(s) Cardiovascular Denies chest pain and Denies dyspnea Respiratory Denies cough and Denies dyspnea Gastrointestinal Denies vomiting Genitourinary Denies dysuria PFS <Melo Paige MD - Last Filed: 09/18/18 20:32> Social History Smoking/Tobacco Use Status: Former Tobacco Use Alcohol Intake: never Drug use: Never Substance use type: marijuana Do you feel safe at home: Yes Do you feel safe in your relationship?: Yes Exam <Melo Paige MD - Last Filed: 09/18/18 20:32> Const General: no acute distress Orientation: alert HENWI Head: normal to inspection Ears: external ears normal General nose exam: external nose normal Mouth: moist mucous membranes Eyes General: appearance normal, both eyes and all related structures Neck Neck: normal visual inspection Resp Effort & Inspection: normal respiratory effort and able to speak in complete sentences Cardio Rate: regular rate GI Palpation: soft Skin General skin exam: no rashes or lesions noted Neuro General: alert and oriented x3 Extrem General: normal to inspection Psych Mental Status: mental status grossly normal Course <Melo Paige MD - Last Filed: 09/18/18 20:32> Vital Signs Temperature 37.1 C 09/18/18 06:51 Pulse 58 L 09/18/18 06:51 Respiratory Rate 12 09/18/18 06:51 Blood Pressure 140/73 09/18/18 06:51 Pulse Oximetry 98 09/18/18 06:51 Temperature 37.1 C 09/18/18 06:51 Temperature Source Temporal Artery Scan 09/18/18 06:51 Pulse 58 L 09/18/18 06:51 Respiratory Rate 12 09/18/18 06:51 Respiratory Effort Non-Labored 09/18/18 06:53 Blood Pressure 140/73 09/18/18 06:51 Blood Pressure Position Sitting 09/18/18 06:51 Pulse Oximetry 98 09/18/18 06:51 Oxygen Delivery Method Room Air 09/18/18 06:51 Oxygen Flow Rate 0 09/18/18 06:51 Pain Level 8 09/18/18 06:51 Sign Out <Melo Paige MD - Last Filed: 09/18/18 20:32> Sign Out Data: Sign Out Comment: f/u on imaging results, pt with prior hx of nephrectomy and had ct yesterday showing unclear results Last updated by Melo Paige MD at 09/18/18 07:17
[2018-09-18] MEDS: Normal Saline 1,000 ML 1000 ML IV ×2 (07:15→10:56)
[2018-09-18 07:16] LABS: Lactate-non-spesis 1.2 mmol/l (0.6-1.4)
[2018-09-18] MEDS: HYDROmorphone 2 MG/ML VIAL 1 MG IVP (07:16)
[2018-09-18] MEDS: Ondansetron 4 MG/2 ML VIAL IVP ×2 (07:16→12:47)
[2018-09-18 07:31] LABS: Prothrombin Time 10.1 sec (9.3-11.0)
[2018-09-18 07:34] LABS: ALT 25 U/L (12-78); AST 18 U/L (15-37); Albumin 4.3 g/dL (3.4-5.0); Alkaline Phosphatase 187 U/L (46-116); Anion Gap 10.9 mmol/L (3-11); BUN 14 mg/dL (7-18); Bilirubin, Direct 0.18 mg/dL (0.00-0.20); Bilirubin, Total 0.9 mg/dL (0.2-1.0); CO2 26.1 mmol/L (21.0-32.0); CREATININE 1.13 mg/dL (0.70-1.30); Calcium 9.3 mg/dL (8.5-10.1); Chloride 100 mmol/L (98-107); Glucose 111 mg/dL (70-100); Lipase 191 U/L (73-393); Magnesium 1.6 mg/dL (1.8-2.4); Potassium 4.2 mmol/L (3.5-5.1); Sodium 137 mmol/L (136-145); Total Protein 8.5 g/dL (6.4-8.2)
[2018-09-18] MEDS: Omnipaque 350 MG/ML 100 ML BTL IJ (08:39)
[2018-09-18] MEDS: Normal Saline Flush 10 ML SYR IVP ×2 (08:47→10:57)
--- NOTE | 2018-09-18 08:47 | DI.CT_ITS ---
CTSYMPTOM/DIAGNOSIS: ABD PAIN, H/O RENAL AND BLADDER CA ABDOMEN AND PELVIC CT: CT examination of the abdomen and pelvis was performed following a contrast enhanced CT angiography of the chest. There is question of large fold versus gastric filling defect, endoscopy may be obtained to evaluate this finding. Small hepatic lesion again noted, indeterminate. No gross biliary dilatation. Pancreas is unremarkable. Gallbladder unremarkable by CT criteria. There is suggestion of jejunal dilatation, no other gross bowel dilatation is seen. The possibility of early obstruction not excluded. Again question mild swirling of mesenteric vessels noted although the finding is probably less prominent than on the previous examination. Moderate amount of gas and fecal material in the colon. CONCLUSION: Findings indeterminate for early obstruction. No gross interval change from yesterday's examination. Question filling defect versus prominent gastric fold, endoscopy may be obtained for further evaluation. CT ANGIOGRAPHY CHEST: 09/18/18 CT angiography of the chest was performed with a bolus infusion of 100 cc Omnipaque 350. No evidence of aortic dissection or abnormality of major branch vessels. No evidence of pulmonary embolic disease. No mediastinal or hilar adenopathy. No pleural effusion. The lungs appear clear except for apparent bilateral apical scarring and prominent apical subpleural emphysematous changes. Tracheobronchial tree appears intact. There is marked central lobular emphysema. CONCLUSION: COPD and bilateral apical pulmonary scarring. No evidence of pulmonary embolic disease.
--- NOTE | 2018-09-18 09:55 | DI.VRAD_ITS ---
EXAM: CT Angiography Chest With Contrast EXAM DATE/TIME: 09/18/2018 6:57 AM CLINICAL HISTORY: 63 years old, male; Pain; Other: Abd; Abdominal pain; Generalized; Prior surgery; Surgery date: 6+ months; Surgery type: Lt kidney removed; Patient HX: Abd pain. HX bladdrer/renal CA TECHNIQUE: Imaging protocol: Axial computed tomographic angiography images of the chest with intravenous contrast using CT angiography protocol. Coronal and sagittal reformatted images were created and reviewed. 3D rendering: MIP reconstructed images were created and reviewed. Radiation optimization: All CT scans at this facility use at least one of these dose optimization techniques: automated exposure control; mA and/or kV adjustment per patient size (includes targeted exams where dose is matched to clinical indication); or iterative reconstruction. Contrast material: omni 350 Contrast volume: 84 ml Contrast route: iv COMPARISON: No relevant prior studies available. FINDINGS: Pulmonary arteries: No evidence of pulmonary embolus to the segmental level. Aorta: No aneurysm of the aorta. No dissection of the aorta. Lungs: Mild panlobular emphysematous changes Mild opacities in the apices may represent fibrosis from chronic lung changes, atelectasis, or infection, or tumor. Pleural space: Normal. No pneumothorax. No pleural effusion. Heart: Normal. No cardiomegaly. No pericardial effusion. Lymph nodes: Unremarkable. No enlarged lymph nodes. Bones/joints: Unremarkable. No acute fracture. Soft tissues: Unremarkable. IMPRESSION: 1. No evidence of pulmonary embolus to the segmental level. 2. No aneurysm of the aorta. 3. No dissection of the aorta. 4. Mild opacities in the apices may represent fibrosis from chronic lung changes, atelectasis, or infection, or tumor. EXAM: CT Abdomen and Pelvis With Contrast EXAM DATE/TIME: 09/18/2018 6:57 AM CLINICAL HISTORY: 63 years old, male; Pain; Other: Abd; Abdominal pain; Generalized; Prior surgery; Surgery date: 6+ months; Surgery type: Lt kidney removed; Patient HX: Abd pain. HX bladdrer/renal CA TECHNIQUE: Imaging protocol: Axial computed tomography images of the abdomen and pelvis with intravenous contrast. Coronal and sagittal reformatted images were created and reviewed. 3D rendering: MIP reconstructed images were created and reviewed. Radiation optimization: All CT scans at this facility use at least one of these dose optimization techniques: automated exposure control; mA and/or kV adjustment per patient size (includes targeted exams where dose is matched to clinical indication); or iterative reconstruction. Contrast material: omni 350 Contrast volume: 84 ml Contrast route: IV COMPARISON: No relevant prior studies available. FINDINGS: Lower thorax: See the report for CT chest ABDOMEN: Liver: Stable 11 mm low-attenuation nodule in the dome of the liver. Mild intrahepatic ductal dilatation. Gallbladder and bile ducts: No gallstones Pancreas: Normal. No ductal dilation. Spleen: Normal. No splenomegaly. Adrenals: The adrenals are stable in appearance. Kidneys and ureters: Absence of the left kidney. Right kidney is stable. Stomach and bowel: 4 cm filling defect in the lateral aspect of the stomach (4:29).. This may represent focal gastric mass versus atypical fold. Recommend endoscopy for further evaluation. The jejunum is dilated and then tapers . The contrast does not extend past the anterior aspect of the abdomen (4:45.) There is evidence of slow motility in this region consistent with obstruction.. Distal small bowel has a more normal caliber. Persistent swirling of the vessels was described on the prior study. This has unknown clinical significance. Appendix: No evidence of appendicitis. PELVIS: Bladder: Contrast in the bladder. Reproductive: Unremarkable as visualized. ABDOMEN and PELVIS: Intraperitoneal space: Normal. No free air. No significant fluid collection. Bones/joints: No acute fracture. No dislocation. Soft tissues: Unremarkable. Vasculature: Normal. No abdominal aortic aneurysm. Lymph nodes: Normal. No enlarged lymph nodes. IMPRESSION: 1. 4 cm filling defect in the lateral aspect of the stomach (4:29).. This may represent focal gastric mass versus atypical fold. Recommend endoscopy for further evaluation. 2. The jejunum is dilated and then tapers . The contrast does not extend past the anterior aspect of the abdomen (4:45.) There is evidence of slow motility in this region consistent with obstruction.. 3. Absence of the left kidney. Right kidney is stable. 4. Persistent swirling of the vessels was described on the prior study. This has unknown clinical significance. Dictated and Authenticated by: Kenrick Edwards MD. Ordering:PERRY Alejo MD
[2018-09-18 10:21] LABS: Bilirubin Negative (Negative); Blood Trace-intact (Negative); Clarity Clear; Glucose Negative (Negative); Ketones Negative (Negative); Leukocyte Esterase Negative (Negative); Nitrite Negative (Negative); Urobilinogen 0.2 EU/dL (Up TO 0.2); pH 5.5 (5-8)
[2018-09-18 10:50] LABS: Bacteria Negative HPF (Negative); C & S Indicated? No; Casts Negative LPF (Negative); Crystals Negative HPF (Negative); Epithelial Cells Negative HPF (Negative); Mucus Negative (Negative); RBC Negative (0-2)
[2018-09-18 11:01] LABS: Abs Immature Grans 0.01 k/cumm (0.0-0.09); Absolute Basophil Count 0.02 k/cumm (0.0-0.2); Absolute Eosinophil Count 0.02 k/cumm (0.0-0.7); Absolute Monocyte Count 0.87 k/cumm (0.11-0.7); Absolute Neutrophil Count 8.18 k/cumm (1.2-6.7); Basophils % 0.2; Eosinophils % 0.2; HCT 41.1 % (40.0-50.0); HGB 13.7 g/dL (13.5-17.5); Immature Grans % 0.1; Lymphocytes % 10.8; Mean Corp. HGB Concentration 33.3 g/dL (32.0-36.0); Mean Corpuscular Hemoglobin 31.2 pg (27.0-33.0); Mean Corpuscular Volume 93.6 fL (80-95); Monocytes % 8.5; Neutrophils % 80.2; Platelet Count 314 x1000/uL (130-400); RBC 4.39 m/cumm (4.50-6.00); RBC Distribution Width 15.2 % (11.8-14.1)
[2018-09-18 12:50] VITALS: BP 140/73; PULSE 58; RESP 12; TEMP 37.1; O2SAT 98
== END 2018-09-18 14:09 | disposition short-term general hospital (02) ==
PROVIDERS: Emergency Medicine; Emergency Provider Physician Assistant; PCP Nurse Practitioner Family
DX: K56.609 Unspecified intestinal obstruction, unspecified as to partial versus complete obstruction (principal); Z90.5 Acquired absence of kidney
CPT/HCPCS: 36415; 71275; 74177; 80053; 80076; 83690; 96361; 96374; 96375; 96376; 99285; 81003; 81015; 83605; 83735; 85025; 85610; 85730; 99284; J2405; J3490

== ENCOUNTER 2019-01-31 07:03 | Outpatient (CLI) | payer OTHER, SELFPAY ==
[2019-01-31 07:37] LABS: Absolute Basophil Count 0.02 k/cumm (0.0-0.2); Absolute Eosinophil Count 0.09 k/cumm (0.0-0.7); Absolute Monocyte Count 0.65 k/cumm (0.11-0.7); Absolute Neutrophil Count 3.58 k/cumm (1.2-6.7); Basophils % 0.4; Eosinophils % 1.6; HCT 44.3 % (40.0-50.0); HGB 14.8 g/dL (13.5-17.5); Mean Corp. HGB Concentration 33.4 g/dL (32.0-36.0); Mean Corpuscular Hemoglobin 31.2 pg (27.0-33.0); Mean Corpuscular Volume 93.5 fL (80-95); Mean Platelet Volume 9.9 fL (8.0-11.0); Monocytes % 11.5; Neutrophils % 63.5; Platelet Count 325 x1000/uL (130-400); RBC 4.74 m/cumm (4.50-6.00); White Blood Cell Count 5.64 k/cumm (4.4-10.8)
[2019-01-31 07:51] LABS: ALT 27 U/L (16-63); AST 18 U/L (15-37); Albumin 4.1 g/dL (3.4-5.0); Alkaline Phosphatase 163 U/L (46-116); Anion Gap 10.7 mmol/L (3-11); BUN 15 mg/dL (7-18); Bilirubin, Total 0.6 mg/dL (0.2-1.0); CO2 25.3 mmol/L (21.0-32.0); CREATININE 1.28 mg/dL (0.70-1.30); Calcium 9.3 mg/dL (8.5-10.1); Chloride 104 mmol/L (98-107); Estimated GFR 56.58 (mL/min/1.73m2); Glucose 101 mg/dL (70-100); Potassium 4.3 mmol/L (3.5-5.1); Sodium 140 mmol/L (136-145); Total Protein 8.2 g/dL (6.4-8.2)
== END 2019-01-31 07:23 ==
PROVIDERS: PCP Nurse Practitioner Family; Visit Provider Internal Medicine
DX: C79.10 Secondary malignant neoplasm of unspecified urinary organs (principal); C66.2 Malignant neoplasm of left ureter
CPT/HCPCS: 36415; 80053; 85025

== ENCOUNTER 2019-12-05 02:43 | Outpatient (CLI) | payer OTHER, SELFPAY ==
[2019-12-05 08:13] LABS: Abs Immature Grans 0.01 k/cumm (0.0-0.09); Absolute Basophil Count 0.04 k/cumm (0.0-0.2); Absolute Eosinophil Count 0.09 k/cumm (0.0-0.7); Absolute Lymphocyte Count 1.77 k/cumm (1.2-3.4); Absolute Monocyte Count 0.88 k/cumm (0.11-0.7); Absolute Neutrophil Count 3.81 k/cumm (1.2-6.7); Basophils % 0.6; Eosinophils % 1.4; HCT 43.4 % (40.0-50.0); HGB 14.6 g/dL (13.5-17.5); Immature Grans % 0.2 %; Lymphocytes % 26.8; Mean Corp. HGB Concentration 33.6 g/dL (32.0-36.0); Mean Corpuscular Hemoglobin 30.8 pg (27.0-33.0); Mean Corpuscular Volume 91.6 fL (80-95); Mean Platelet Volume 10.4 fL (8.0-11.0); Monocytes % 13.3; Neutrophils % 57.7; Platelet Count 265 x1000/uL (130-400); RBC 4.74 m/cumm (4.50-6.00); RBC Distribution Width 13.7 % (11.8-14.1)
[2019-12-05 08:26] LABS: ALT 24 U/L (16-63); AST 21 U/L (15-37); Albumin 4.2 g/dL (3.4-5.0); Alkaline Phosphatase 114 U/L (46-116); Anion Gap 5.5 mmol/L (3-11); BUN 18 mg/dL (7-18); Bilirubin, Total 0.5 mg/dL (0.2-1.0); CO2 29.5 mmol/L (21.0-32.0); CREATININE 1.23 mg/dL (0.70-1.30); Calcium 9.5 mg/dL (8.5-10.1); Chloride 103 mmol/L (98-107); Estimated GFR 59.06 (mL/min/1.73m2); Glucose 72 mg/dL (74-106); Potassium 4.4 mmol/L (3.5-5.1); Sodium 138 mmol/L (136-145); Total Protein 8.2 g/dL (6.4-8.2)
== END 2019-12-05 03:03 ==
PROVIDERS: PCP Nurse Practitioner Family; Visit Provider Internal Medicine
DX: C79.19 Secondary malignant neoplasm of other urinary organs (principal)
CPT/HCPCS: 36415; 80053; 85025

== ENCOUNTER 2020-05-08 03:46 | Outpatient (CLI) | payer OTHER, SELFPAY ==
[2020-05-08 10:11] LABS: Abs Immature Grans 0.02 10^3/uL (0.0-0.06); Absolute Basophil Count 0.05 10^3/uL (0.0-0.2); Absolute Eosinophil Count 0.09 10^3/uL (0.0-0.7); Absolute Lymphocyte Count 1.67 10^3/uL (1.2-3.4); Absolute Monocyte Count 0.72 10^3/uL (0.1-0.8); Absolute Neutrophil Count 3.99 10^3/uL (1.2-6.7); Basophils % 0.8; Eosinophils % 1.4; HCT 49.7 % (40.0-50.0); Immature Grans % 0.3; Lymphocytes % 25.5; MCH 31.1 pg (27.0-33.0); MCHC 32.2 % (32.0-36.0); MCV 96.7 fL (80-95); Nucleated RBC 0 %; Platelet Count 284 10^3/uL (130-400); RBC 5.14 10^6/uL (4.36-5.78); RDW 12.7 % (11.8-14.1); RDW-SD 45.9 fL; WBC 6.54 10^3/uL (4.4-10.8)
[2020-05-08 10:13] LABS: ALT 26 U/L (16-63); AST 22 U/L (15-37); Albumin 4.9 g/dL (3.4-5.0); Alkaline Phosphatase 132 U/L (46-116); Anion Gap 9.3 mmol/L (3-11); BUN 18 mg/dL (7-18); Bilirubin, Total 0.6 mg/dL (0.2-1.0); CO2 27.7 mmol/L (21.0-32.0); Calcium 9.8 mg/dL (8.5-10.1); Chloride 102 mmol/L (98-107); Glucose 64 mg/dL (74-106); Potassium 4.3 mmol/L (3.5-5.1); Sodium 139 mmol/L (136-145); Total Protein 9.4 g/dL (6.4-8.2)
== END 2020-05-08 04:06 ==
PROVIDERS: PCP Nurse Practitioner Family; Visit Provider Internal Medicine
DX: C79.10 Secondary malignant neoplasm of unspecified urinary organs (principal)
CPT/HCPCS: 36415; 80053; 85025

== ENCOUNTER 2020-07-03 01:32 | Outpatient (CLI) | payer OTHER, SELFPAY ==
[2020-07-03 08:12] LABS: Abs Immature Grans 0.01 10^3/uL (0.0-0.06); Absolute Basophil Count 0.05 10^3/uL (0.0-0.2); Absolute Eosinophil Count 0.05 10^3/uL (0.0-0.7); Absolute Lymphocyte Count 1.53 10^3/uL (1.2-3.4); Absolute Monocyte Count 0.58 10^3/uL (0.1-0.8); Basophils % 0.9; Eosinophils % 0.9; HCT 42.5 % (40.0-50.0); HGB 13.9 g/dL (13.5-17.5); Immature Grans % 0.2; Lymphocytes % 26.7; MCH 31.1 pg (27.0-33.0); MCHC 32.7 % (32.0-36.0); MCV 95.1 fL (80-95); MPV 10.2 fL (8.0-11.0); Monocytes % 10.1; Neutrophils % 61.2; Nucleated RBC 0 %; Platelet Count 265 10^3/uL (130-400); RBC 4.47 10^6/uL (4.36-5.78); RDW 12.4 % (11.8-14.1); RDW-SD 43.3 fL; WBC 5.72 10^3/uL (4.4-10.8)
[2020-07-03 08:24] LABS: ALT 26 U/L (16-63); AST 21 U/L (15-37); Albumin 4.1 g/dL (3.4-5.0); Alkaline Phosphatase 97 U/L (46-116); Anion Gap 6.9 mmol/L (3-11); BUN 13 mg/dL (7-18); Bilirubin, Total 0.4 mg/dL (0.2-1.0); CO2 30.1 mmol/L (21.0-32.0); CREATININE 1.19 mg/dL (0.70-1.30); Calcium 9.1 mg/dL (8.5-10.1); Chloride 102 mmol/L (98-107); Glucose 79 mg/dL (74-106); Potassium 4.2 mmol/L (3.5-5.1); Sodium 139 mmol/L (136-145); Total Protein 7.9 g/dL (6.4-8.2)
--- NOTE | 2020-07-03 08:30 | DI.CT_ITS ---
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 Mediastinum and Thu: No dominant adenopathy or fluid collection. Pulmonary parenchyma: No consolidation or dominant measurable mass. Moderate diffuse centrilobular em physema throughout. Paraseptal emphysema at the lung apices. Stable biapical scarring. No pulmonar y masses or infiltrates. No suspicious nodules. Pleura: No effusion or pneumothorax. Heart: The heart is not dilated. No coronary artery calcifications are seen. Aorta: Thoracic aorta non-dilated. Upper abdomen: Status post left nephrectomy. Normal appearing adrenal glands. Stable tiny low-dens ity lesion in the posterior superior right lobe of the liver. Right kidney, spleen and pancreas appe ar normal. Lymph nodes: Within normal limits. Bones: Minimal degenerative changes in the mid thoracic spine. . IMPRESSION: Biapical scarring, stable. Emphysematous changes. No pulmonary mass or nodules. No infiltrates. RADIATION DOSE DELIVERED: 428.92mGy.cm Total DLP DATA REPOSITORY: All CT scans at this facility are submitted to the National Radiology Data Registry (NRDR) Dose Index Registry (DIR) with the [employer] (A[employer]). RADIATION OPTIMIZATION: All CT scans at this facility use at least one of these dose optimization te chniques: automated exposure control; mA and/or kV adjustment per patient size (includes targeted exa ms where dose is matched to clinical indication); or iterative reconstruction.
[2020-07-03] MEDS: Omnipaque 350 MG/ML 100 ML BTL IJ (08:50)
[2020-07-03] MEDS: Normal Saline - Diluent 50 ML VIAL IV (08:51)
== END 2020-07-03 01:52 ==
PROVIDERS: PCP Nurse Practitioner Family; Visit Provider Internal Medicine
DX: C79.10 Secondary malignant neoplasm of unspecified urinary organs (principal); R91.8 Other nonspecific abnormal finding of lung field
CPT/HCPCS: 80053; 71260; 85025; J3490

== ENCOUNTER 2020-10-17 02:16 | Outpatient (CLI) | payer OTHER, SELFPAY ==
[2020-10-17 07:36] LABS: Abs Immature Grans 0.01 10^3/uL (0.0-0.06); Absolute Basophil Count 0.05 10^3/uL (0.0-0.2); Absolute Eosinophil Count 0.08 10^3/uL (0.0-0.7); Absolute Lymphocyte Count 1.49 10^3/uL (1.2-3.4); Absolute Monocyte Count 0.57 10^3/uL (0.1-0.8); Absolute Neutrophil Count 3.91 10^3/uL (1.2-6.7); Basophils % 0.8; Eosinophils % 1.3; HCT 43.8 % (40.0-50.0); HGB 14.4 g/dL (13.5-17.5); Immature Grans % 0.2; Lymphocytes % 24.4; MCH 31.8 pg (27.0-33.0); MCHC 32.9 % (32.0-36.0); MCV 96.7 fL (80-95); MPV 10.6 fL (8.0-11.0); Monocytes % 9.3; Nucleated RBC 0 %; Platelet Count 227 10^3/uL (130-400); RBC 4.53 10^6/uL (4.36-5.78); RDW 12.3 % (11.8-14.1); RDW-SD 44.2 fL; WBC 6.11 10^3/uL (4.4-10.8)
[2020-10-17 08:03] LABS: ALT 27 U/L (16-63); AST 20 U/L (15-37); Albumin 4.2 g/dL (3.4-5.0); Alkaline Phosphatase 101 U/L (46-116); Anion Gap 6.8 mmol/L (3-11); BUN 18 mg/dL (7-18); Bilirubin, Total 0.4 mg/dL (0.2-1.0); CO2 29.2 mmol/L (21.0-32.0); CREATININE 1.3 mg/dL (0.70-1.30); Calcium 9.3 mg/dL (8.5-10.1); Chloride 103 mmol/L (98-107); Estimated GFR 55.23 (mL/min/1.73m2); Glucose 106 mg/dL (74-106); Potassium 4.3 mmol/L (3.5-5.1); Sodium 139 mmol/L (136-145); Total Protein 7.9 g/dL (6.4-8.2)
== END 2020-10-17 02:17 | disposition home or self-care (01) ==
PROVIDERS: PCP Nurse Practitioner Family; Visit Provider Internal Medicine
DX: C79.10 Secondary malignant neoplasm of unspecified urinary organs (principal)
CPT/HCPCS: 36415; 80053; 85025

== ENCOUNTER 2021-10-14 02:05 | Outpatient (CLI) | payer OTHER, SELFPAY ==
[2021-10-14 14:51] LABS: Abs Immature Grans 0.01 10^3/uL (0.0-0.06); Absolute Basophil Count 0.04 10^3/uL (0.0-0.2); Absolute Eosinophil Count 0.14 10^3/uL (0.0-0.7); Absolute Lymphocyte Count 1.32 10^3/uL (1.2-3.4); Absolute Monocyte Count 0.88 10^3/uL (0.1-0.8); Absolute Neutrophil Count 4.68 10^3/uL (1.2-6.7); Basophils % 0.6; HCT 40.5 % (40.0-50.0); HGB 13.1 g/dL (13.5-17.5); Immature Grans % 0.1; Lymphocytes % 18.7; MCH 30.8 pg (27.0-33.0); MCHC 32.3 % (32.0-36.0); MCV 95 fL (80-95); MPV 10.7 fL (8.0-11.0); Monocytes % 12.4; Neutrophils % 66.2; Platelet Count 223 10^3/uL (130-400); RBC 4.26 10^6/uL (4.36-5.78); RDW 12.8 % (11.8-14.1); RDW-SD 45.1 fL; WBC 7.07 10^3/uL (4.4-10.8)
[2021-10-14 15:05] LABS: ALT 26 U/L (16-63); AST 17 U/L (15-37); Albumin 3.8 g/dL (3.4-5.0); Alkaline Phosphatase 113 U/L (46-116); Anion Gap 6.8 mmol/L (3-11); BUN 27 mg/dL (7-18); Bilirubin, Total 0.3 mg/dL (0.2-1.0); CO2 27.2 mmol/L (21.0-32.0); CREATININE 1.3 mg/dL (0.70-1.30); Calcium 8.7 mg/dL (8.5-10.1); Chloride 102 mmol/L (98-107); Estimated GFR 55.06 (mL/min/1.73m2); Glucose 94 mg/dL (74-106); Potassium 4.6 mmol/L (3.5-5.1); Sodium 136 mmol/L (136-145); Total Protein 7.4 g/dL (6.4-8.2)
== END 2021-10-14 02:06 | disposition home or self-care (01) ==
PROVIDERS: PCP Nurse Practitioner Family; Visit Provider Internal Medicine
DX: C79.10 Secondary malignant neoplasm of unspecified urinary organs (principal)
CPT/HCPCS: 36415; 80053; 85025

== ENCOUNTER 2022-02-28 06:59 | Emergency (ER) | payer OTHER, SELFPAY ==
[2022-02-28 07:05] VITALS: BP 153/88; PULSE 71; RESP 20; TEMP 37; O2SAT 100
--- NOTE | 2022-02-28 07:16 | DI.CT_ITS ---
Exam(s) CT ABDOMEN PELVIS W EXAM: CT ABDOMEN PELVIS W CLINICAL HISTORY: abdominal pain, ?sbo TECHNIQUE: COMPARISON: CT CT CHEST PE ABD PELVIS W from 09/18/2018 FINDINGS: CT examination of the abdomen and pelvis was performed with bolus infusion of 100 cc of Omnipaque 350 . Images obtained through the lung bases show moderate pulmonary emphysema. The liver shows presumed right lobe cyst, unchanged from prior CT of September 2018, no evidence of acute process.. Spleen is unremarkable in appearance.. Gallbladder and bile ducts are unremarkable. Pancreas is unremarkable in appearance. Adrenals appear normal bilaterally. Prior left nephrectomy noted. There is intermediate attenuation poorly defined masslike finding in t he right renal pelvis with apparent mild secondary hydronephrosis, the findings are worrisome for mik plastic disease although clot is not excluded. Right ureter is dilated. Urinary bladder is distende d and there appears to be bladder trabeculation period intravesical mass not excluded at the base of the bladder. Additional evaluation with cystoscopy and retrograde ureterography are graph E wrapped commended period. There is no evidence of abdominal or pelvic adenopathy. Abdominal aorta is of normal diameter and no abnormality is seen involving major visceral branches.. Appendix is not specifically visualized but there is no evidence of appendicitis. No evidence divert iculitis or bowel obstruction. No significant abdominal wall hernia seen. Impression: Urinary bladder and right ureteral distension. Findings suspicious for right renal pelvic irregular mass with secondary hydronephrosis. Urinary bladder floor mass not excluded. Additional evaluation with cystoscopy and retrograde ureterography recommended.. RADIATION DOSE DELIVERED: 487.4mGy.cm Total DLP 487.4mGy.cm Total DLP !Error CTDIvol DATA REPOSITORY: All CT scans at this facility are submitted to the National Radiology Data Registry (NRDR) Dose Index Registry (DIR) with the [employer] (ACR). RADIATION OPTIMIZATION: All CT scans at this facility use at least one of these dose optimization te chniques: automated exposure control; mA and/or kV adjustment per patient size (includes targeted exa ms where dose is matched to clinical indication); or iterative reconstruction.
--- NOTE | 2022-02-28 07:17 | ED.GENADUL_ITS ---
Discharge Plan Disposition Patient Disposition: STILL A PATIENT Condition: Stable Discharge Details Chief Complaint: Abd Prob Clinical Impression: Abdominal pain Primary Care Provider: Felicia uJan ED Provider: Melo Paige Home Meds and New Rx's Prescriptions: No Action acetaminophen [Acetaminophen Extra Strength] 500 MG tablet 1,000 mg PO Q6H PRN diphenhydramine HCl 25 MG capsule 50 mg PO Q6H PRN docusate sodium [Colace] 100 MG capsule 100 mg PO BID PRN sennosides [senna] 8.6 MG tablet 2 tab PO BID tamsulosin 0.4 mg capsule 1 cap PO DAILY Label Comments: TAKE ONE CAPSULE BY MOUTH EVERY DAY DIRECTED Medical Decision Making 66 yo male with hx of multiple prior abdominal surgeries including a nephrectomy comes in with 2-3 days of worsening lower abdomen pain and constipation. He denies fevers, chills, chest pain, dyspnea. He can't think of anything that makes it better or worse. He states when he tries to have a bowel movement he can only get a very small amount out, denies black or bloody stools. He is tender to the lower right and left quadrants of his abdomen and on rectal exam has no impaction, no blood, normal brown stool on finger when it is removed. Suspect constipation but given his multiple prior surgeries will obtain ct to evaluate for possible sbo pt signed out to oncoming provider pending ct results and reassessment Differential Diagnosis Differential Diagnosis: sbo, constipation Medical Records Medical records reviewed: Yes I reviewed the patient's medical records. Lab Data Lab results reviewed: Yes I reviewed the patient's lab results. HPI General Mode of arrival: ambulatory . Date/Time Provider Initiated Documentation: 02/28/22 07:01 . Limitations to Documentation: no limitations . Information obtained by: patient . History of Present Illness 66 year old M presents to the emergency department with the chief complaint of abdominal pain, described as moderate, Quality is described as aching, and is localized to the abdomen. Patient reports no radiation. Patient started experiencing this day(s) (3) and it has been constant. No relieving factors improve symptom(s), No exacerbating factors reported . Patient did receive the following treatments prior to arrival, none Related Data Home Medications Medication Instructions Recorded Confirmed acetaminophen 500 mg tablet 1,000 mg PO Q6H PRN 09/30/17 09/18/18 (Acetaminophen Extra Strength) diphenhydramine HCl 25 mg capsule 50 mg PO Q6H PRN 09/30/17 09/18/18 docusate sodium 100 mg capsule 100 mg PO BID PRN 09/30/17 09/18/18 (Colace) sennosides 8.6 mg tablet (senna) 2 tab PO BID 10/07/17 09/18/18 tamsulosin 0.4 mg capsule 1 cap PO DAILY 02/28/22 02/28/22 Allergies Allergy/AdvReac Type Severity Reaction Status Date / Time No Known Allergies Allergy Unverified 09/18/18 06:54 General Stated Complaint: Abd Prob CHRIS: 3 Review of Systems All systems reviewed & are unremarkable except as noted in HPI and below Constitutional Constitutional: Denies chills, Denies fever(s) and Denies weakness Cardiovascular Cardiovascular: Denies chest pain Gastrointestinal Gastrointestinal: Denies vomiting Integumentary/Breasts Skin/Breast: Denies rash Neurologic Neurologic: Denies weakness PFSH All Active Problems (Updated 02/28/22 @ 07:23 by Melo Paige MD) Abdominal pain (Acute) Social History Smoking/Tobacco Use Status: Former Tobacco Use Smoking risk assessment performed?: Yes Alcohol Intake: never Drug use: Never Substance use type: marijuana Do you feel safe at home: Yes Do you feel safe in your relationship?: Yes Exam Const General: no acute distress Orientation: alert HENMT Head: normal to inspection Ears: external ears normal General nose exam: external nose normal Mouth: moist mucous membranes Eyes General: appearance normal, both eyes and all related structures Neck Neck: normal visual inspection Resp Effort & Inspection: normal respiratory effort and able to speak in complete sentences Cardio Rate: regular rate GI Palpation: tender Skin General skin exam: no rashes or lesions noted Neuro General: patient alert and patient oriented x3 Extrem General: normal to inspection Psych Mental Status: mental status grossly normal Course Vital Signs Vital signs: Vital Signs Temperature 37 C 02/28/22 07:05 Pulse 71 02/28/22 07:05 Respiratory Rate 20 02/28/22 07:05 Blood Pressure 153/88 H 02/28/22 07:05 Pulse Oximetry 100 02/28/22 07:05 Temperature 37 C 02/28/22 07:05 Temperature Source Temporal Artery Scan 02/28/22 07:05 Pulse 71 02/28/22 07:05 Respiratory Rate 20 02/28/22 07:05 Respiratory Effort Non-Labored 02/28/22 07:12 Blood Pressure 153/88 H 02/28/22 07:05 Blood Pressure Position Sitting 02/28/22 07:05 Pulse Oximetry 100 02/28/22 07:05 Oxygen Delivery Method Room Air 02/28/22 07:05 Oxygen Flow Rate 0 02/28/22 07:05 Pain Level 8 02/28/22 07:05
[2022-02-28 07:46] LABS: Source Nasal/Nares
[2022-02-28 07:50] LABS: Abs Immature Grans 0.03 10^3/uL (0.0-0.06); Absolute Basophil Count 0.03 10^3/uL (0.0-0.2); Absolute Eosinophil Count 0.04 10^3/uL (0.0-0.7); Absolute Lymphocyte Count 0.67 10^3/uL (1.2-3.4); Absolute Monocyte Count 0.79 10^3/uL (0.1-0.8); Absolute Neutrophil Count 8.27 10^3/uL (1.2-6.7); Basophils % 0.3; Eosinophils % 0.4; HCT 39.6 % (40.0-50.0); HGB 12.7 g/dL (13.5-17.5); Immature Grans % 0.3; Lymphocytes % 6.8; MCH 30.2 pg (27.0-33.0); MCHC 32.1 % (32.0-36.0); MCV 94 fL (80-95); MPV 10.5 fL (8.0-11.0); Neutrophils % 84.2; Platelet Count 349 10^3/uL (130-400); RBC 4.21 10^6/uL (4.36-5.78); RDW 12.8 % (11.8-14.1); RDW-SD 44.1 fL; WBC 9.83 10^3/uL (4.4-10.8)
[2022-02-28] MEDS: Ketorolac 15 MG/ML VIAL IVP (07:57)
[2022-02-28 08:07] LABS: Bilirubin Negative (Negative); Blood Moderate (Negative); Clarity Sl Cloudy (Clear); Glucose Negative (Negative); Ketones Negative (Negative); Leukocyte Esterase Trace (Negative); Nitrite Negative (Negative); Specific Gravity 1.015 (1.005-1.025); Urobilinogen 0.2 EU/dL (Up TO 0.2); pH 6.5 (5-8)
[2022-02-28 08:09] LABS: Diff Comment Agrees w/ Instrument; RBC Morphology Normal
[2022-02-28 08:10] LABS: ALT 21 U/L (16-63); AST 17 U/L (15-37); Albumin 3.8 g/dL (3.4-5.0); Alkaline Phosphatase 160 U/L (46-116); Anion Gap 8.3 mmol/L (3-11); BUN 19 mg/dL (7-18); Bilirubin, Total 0.4 mg/dL (0.2-1.0); CO2 27.7 mmol/L (21.0-32.0); CREATININE 1.7 mg/dL (0.70-1.30); Calcium 9.6 mg/dL (8.5-10.1); Chloride 101 mmol/L (98-107); Estimated GFR 43.64 (mL/min/1.73m2); Glucose 120 mg/dL (74-106); Lipase 106 U/L (73-393); Magnesium 1.9 mg/dL (1.8-2.4); Potassium 4.4 mmol/L (3.5-5.1); Sodium 137 mmol/L (136-145); Total Protein 8.3 g/dL (6.4-8.2)
[2022-02-28 08:15] LABS: Bacteria Rare HPF (Negative); Crystals Few Amorphous HPF (Negative); Epithelial Cells Few HPF (Negative); Mucus Trace (Negative); RBC 20-50 HPF (0-2)
[2022-02-28 08:17] LABS: C & S Indicated? Yes
[2022-02-28 08:18] LABS: COVID-19 PCR Negative (Negative)
[2022-02-28] MEDS: Omnipaque 350 MG/ML 100 ML BTL IV (08:37)
[2022-02-28 09:06] VITALS: BP 127/73; PULSE 56; RESP 18; O2SAT 98
--- NOTE | 2022-02-28 09:27 | DI.VRAD_ITS ---
PROCEDURE INFORMATION: Exam: CT Abdomen And Pelvis With Contrast Exam date and time: 02/28/2022 8:37 AM Age: 66 years old Clinical indication: Other: Abd pain, ? sbo TECHNIQUE: Imaging protocol: Computed tomography of the abdomen and pelvis with contrast. Contrast material: OMNIPAQUE 350; Contrast volume: 100 ml; Contrast route: INTRAVENOUS (IV); COMPARISON: CT ABDOMEN PELVIS W 09/17/2018 3:47 PM FINDINGS: Liver: Hypodensity in the dome of the liver is determinate Gallbladder and bile ducts: Contracted No calcified stones. No ductal dilation. Pancreas: No ductal dilation. Spleen: No splenomegaly. Adrenal glands: Right adrenal nodule measuring 13 mm grossly stable. Kidneys and ureters: Left kidney is surgically absent. There is an abnormal mass centered on the right renal pelvis/collecting system measuring up to 2.7 by 2.2 cm within irregular appearance axial image 22 coronal image 43. There is moderate right hydronephrosis. The right ureter is mildly dilated without definite obstructing calculus distally Additional hypodensity in the midpole of the right kidney is indeterminate Stomach and bowel: No obstruction. No mucosal thickening. Appendix: No evidence of appendicitis. Intraperitoneal space: No free air. No significant fluid collection. Vasculature: No abdominal aortic aneurysm. Lymph nodes: No enlarged lymph nodes. Urinary bladder: Distended. Reproductive: Enlarged prostate gland with an irregular heterogeneous appearance Bones/joints: Sclerotic focus in the sacrum, grossly stable No acute fracture. Soft tissues: Unremarkable. IMPRESSION: Interval development of a right renal pelvic mass as described worrisome for neoplasm. There is moderate right-sided hydronephrosis. Dilated right ureter as described without definite obstructing calculus. Distended bladder. Findings may be related to vesicoureteral reflux Irregular enlarged prostate gland which may be further characterized on a nonurgent basis Dictated and Authenticated by: Jose Miguel Turner MD. Ordering:PERRY Alejo MD
--- NOTE | 2022-02-28 09:34 | ED.PROG_ITS ---
Date of service: 02/28/22 Time of Service: 13:28 Medical Decision Making Patient received in signout for Dr. Ware. CT scan labs pending. CT scan does show that patient is urinary retention with some right hydronephrosis and possible reflux. Discussed Patient. Barnett catheter ordered. 11 AM. After few attempts of Barnett placement unsuccessful by [facility] nurses, I called [facility] for an ED to ED transfer for urology consult in the emergency department. The patient needs a Barnett catheter. He has had multiple surgeries by the urology service at [facility]. The case was discussed with the transfer center at 11 AM. Awaiting their call back Patient accepted in transfer within the hour, patient was transferred BLS Sign Out Sign Out Data: Sign Out Comment: multiple prior abdominal surgeries per patient for kidney and bladder cancer, nephrectomy,2-3 days of lower abdomen pain and constipation, pending labs and CT Last updated by Melo Paige MD at 02/28/22 07:24 Discharge Plan Disposition Patient Disposition: [facility] Condition: Stable Discharge Details Clinical Impression: Abdominal pain, Acute urinary retention Primary Care Provider: Felicia Juan ED Provider: Melo Paige Home Meds and New Rx's Prescriptions: No Action acetaminophen [Acetaminophen Extra Strength] 500 MG tablet 1,000 mg PO Q6H PRN diphenhydramine HCl 25 MG capsule 50 mg PO Q6H PRN tamsulosin 0.4 mg capsule 1 cap PO DAILY Label Comments: TAKE ONE CAPSULE BY MOUTH EVERY DAY DIRECTED
[2022-02-28 11:12] VITALS: BP 134/80; PULSE 63; RESP 18; TEMP 36.7; O2SAT 96
--- NOTE | 2022-03-02 09:16 | NUR.NOTE ---
Nursing Note: Accessed pt chart to find antibiotic for UC result. Per Dr Arianne Swann, the result is negative and can be discarded.
== END 2022-02-28 12:09 | disposition short-term general hospital (02) ==
PROVIDERS: Emergency Provider Emergency Medicine; PCP Nurse Practitioner Family
DX: K59.00 Constipation, unspecified (principal); Z87.891 Personal history of nicotine dependence; R33.9 Retention of urine, unspecified; N13.30 Unspecified hydronephrosis; Z85.528 Personal history of other malignant neoplasm of kidney; Z85.51 Personal history of malignant neoplasm of bladder; Z90.5 Acquired absence of kidney
CPT/HCPCS: 36415; 80053; 83690; 87635; 96374; 99285; 74177; 81003; 81015; 83735; 85025; 87086; 99284; J1885; J3490

== ENCOUNTER 2022-06-12 01:33 | Outpatient (CLI) | payer OTHER, MEDICARE, SELFPAY ==
--- NOTE | 2022-06-12 07:40 | DI.RAD_ITS ---
Exam(s) XR CHEST 2V PA LATERAL EXAM: XR CHEST 2V PA LATERAL CLINICAL HISTORY: PNEUMOTHORAX ON 06/05 PET SCAN,? PROGRESSION TECHNIQUE: 2D digital imaging was performed. COMPARISON: CT CT CHEST W from 07/03/[address] ABDOMEN PELVIS W from 02/28/2022 FINDINGS: HEART: Normal size. Aorta: Not dilated. PULMONARY VASCULATURE: Normal. LUNGS: Prominent underlying emphysematous changes. Bilateral apical scarring. PLEURAL SPACE: There is a tiny pneumothorax visible at the left upper lobe laterally as well as anter iorly on the lateral view. Findings not significantly changed from prior PET CT scan. BONE:Unremarkable for age. IMPRESSION: Stable small left pneumothorax. Underlying emphysematous changes. DATA REPOSITORY: RADIATION DOSE DELIVERED:
== END 2022-06-12 01:53 ==
PROVIDERS: PCP Nurse Practitioner Family; Visit Provider Urology
DX: J93.83 Other pneumothorax (principal); J43.8 Other emphysema; J98.4 Other disorders of lung
CPT/HCPCS: 71046

== ENCOUNTER 2022-06-23 11:09 | Inpatient (IN) | payer OTHER, MEDICARE, SELFPAY ==
[2022-06-23] VITALS (49 sets, daily range): BP systolic 88–150; BP diastolic 60–112; PULSE 72–133; RESP 9–36; TEMP 35.7–36.8; O2SAT 1–100
--- NOTE | 2022-06-23 11:15 | RT.EKG_ITS ---
APPROVED REPORT Exam: Resting ECG Reason for Exam: chest pain Patient Location: E HR:88 bpm ECG Measurements Heart Rate 88 AXIS GA 151 P 88 QRSd 95 QRS 11 QT 381 T 52 QTc 462 Conclusion Sinus rhythm...normal P axis, V-rate 60- 99 Low voltage, precordial leads...precordial leads <1.0mV Physician: no stemi
--- NOTE | 2022-06-23 11:19 | ED.GENADUL_ITS ---
Discharge Plan Disposition Patient Disposition: Admit to [facility] Condition: Good Discharge Details Chief Complaint: SOB Clinical Impression: Pneumothorax on left, Dyspnea Primary Care Provider: Felicia Juan ED Provider: Uriel Garrido Home Meds and New Rx's Prescriptions: No Action acetaminophen [Acetaminophen Extra Strength] 500 MG tablet 1,000 mg PO Q6H PRN albuterol sulfate 90 mcg/actuation HFA aerosol inhaler 180 inh INHALATION Q4H Trelegy Ellipta 100-62.5-25 mcg blister with device 1 ea INHALATION DAILY Label Comments: INHALE ONE PUFF BY MOUTH EVERY DAY DIRECTED FOR 30 DAYS tamsulosin 0.4 mg capsule 1 cap PO DAILY Label Comments: TAKE ONE CAPSULE BY MOUTH EVERY DAY DIRECTED Medical Decision Making 67-year-old male with a past medical history of lung emphysema, chronic stable left-sided pneumothorax, who currently has 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 Patient states that over the last 3 to 4 days he has had progressive worsening shortness of breath. He is not normally on home oxygen. He does live alone. He states that every night he has been driving to the parking lot of the emergency department out of concern that his shortness of breath might get worse and he might need to come in, but he has not come in for presentation. He denies history of blood clot, he denies history of cardiac disease, he denies any other complaints at this time. Past surgical history is positive for left-sided nephrectomy. He denies any falls or trauma. Pain is located in his left chest. It is tight in nature. Improved and relieved by nothing. He presents via EMS on 4 L of supplemental oxygen as they noted that his oxygen levels were in the mid 80s when he tried to get up and ambulate. He was notably subjectively short of breath. Exam demonstrates a cachectic appearing male, diminished lung sounds on the left, currently is on 4 L of supplemental oxygen and saturating well at 96%. He is notably subjectively short of breath though with any movement speaking or activity. Differential includes worsening of his chronic left-sided pneumothorax. Clinically he shows no evidence at this time of tension pneumothorax on exam. Trachea is midline, oxygenation is stable. No chest wall asymmetry. Differential also includes PE, pneumonia, COPD exacerbation, or pleural effusion. Will evaluate for these, give breathing treatment, monitor closely and reassess. 3:[address] scan shows no evidence of pulmonary emboli, however as expected there is pneumothorax, however to be a 90% pneumothorax on the left. We discussed risks and benefits of chest tube, patient consented for procedure. Pigtail 14 Armenian chest tube was placed in the left midaxillary line at rib interspace 5. Patient tolerated procedure very well, unfortunately there appears to be persistent bubbles concerning for air leak. Tubes and gaskets were checked, and it does not appear to be coming from the tubing at this time. Concerned that this may be from his chronic pneumothorax and notable lung disease at baseline. Suspect potential bleb. Repeat chest x-ray however shows complete reinflation of the lung, and subjectively the patient is feeling much better. He is speaking comfortably, he is in no acute distress, and he feels much better. Family did request that the patient be transferred to [facility] if this was a possibility secondary to that location being much closer to them and where they live, however we did contact [facility] and they are at capacity and unable to accept transfer at this time. Patient and family agree for admission here. I did speak with the surgeon on-call Dr. Romero, she agrees with the plan. I will place admission orders on her behalf. I have extensively reviewed the treatment plan with the patient. I have addressed all patient concerns at this time. I have also discussed the plan with the admitting physician and they agree with the current assessment and plan and have agreed to assume responsibility for the patient. All parties demonstrate verbal understanding and agreement with our assessment and plan at this time. The documentation in this chart was dictated using [employer] dictation software. Please excuse any dictation errors. FINDINGS: CHEST: PULMONARY ARTERIES: There are no intraluminal filling defects to suggest acute pulmonary emboli. LUNGS: The size of the pneumothorax on the left side has significantly increased in size when compared to the plain films of 06/12/2022. Now approximately 90 percent pneumothorax. In the opposite-right lung there is scarring in the sub apical region. There also nodular infiltrates throughout the right lower lobe, the largest being in the posterior basal segment of the right lower lobe and measuring approximately 1.6 x 1.7 cm. No associated pleural fluid on either side.. MEDIASTINUM: There is right hilar adenopathy as well as subcarinal adenopathy. No adenopathy in the anterior mediastinal fat. CARDIAC: Heart size is upper normal. There is no pericardial effusion.Caliber thoracic aorta is somewhat prominent measuring 3.8 cm in the ascending aorta. There is no evidence of dissection. No pericardial effusion. There is no significant shift of the interventricular septum. PARTIALLY VISUALIZED UPPERMOST ABDOMEN: Left kidney not seen. No obvious adrenal masses. OSSEOUS: No significant osseous lesions.. IMPRESSION: 1. No evidence of acute pulmonary emboli. No evidence of pulmonary infarction.No pleural effusions. 2. There is now 90% left pneumothorax which has significantly increased compared to chest x-ray of 06/12/2022. 3. There is subcarinal adenopathy as well as right hilar adenopathy. FINDINGS: Single AP portable view. Heart size is upper normal. The mediastinum is not widened nor shifted.. Hyperinflation COPD changes again noted. There has been placement of a pigtail thoracotomy tube. Size of the left pneumothorax has significantly decreased when compared to the CT images earlier same date. Size of the remaining left pneumothorax is approximately equal to the x-ray of 06/12/2022, approximately 10-15 percent. No shift of midline structures. Nodular infiltrate noted in the right lung base which corresponds to the abnormal finding on CT scan the posterior basal segment of the right lower lobe. No pleural effusions. IMPRESSION: Post thoracotomy tube placement left side with significant re-expansion of the left lung. Close follow-up recommended. Nodular infiltrates in the right lung base evident. No obvious pleural effusions. No pulmonary edema. HPI General Date/Time Provider Initiated Documentation: 06/23/22 11:18 . 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 Patient states that over the last 3 to 4 days he has had progressive worsening shortness of breath. He is not normally on home oxygen. He does live alone. He states that every night he has been driving to the parking lot of the emergency department out of concern that his shortness of breath might get worse and he might need to come in, but he has not come in for presentation. He denies history of blood clot, he denies history of cardiac disease, he denies any other complaints at this time. Past surgical history is positive for left-sided nephrectomy. He denies any falls or trauma. Pain is located in his left chest. It is tight in nature. Improved and relieved by nothing. He presents via EMS on 4 L of supplemental oxygen as they noted that his oxygen levels were in the mid 80s when he tried to get up and ambulate. He was notably subjectively short of breath. Related Data Home Medications Medication Instructions Recorded Confirmed acetaminophen 500 mg tablet 1,000 mg PO Q6H PRN 09/30/17 02/28/22 (Acetaminophen Extra Strength) tamsulosin 0.4 mg capsule 1 cap PO DAILY 02/28/22 06/23/22 albuterol sulfate 90 mcg/actuation 180 inh inhalation Q4H 06/23/22 06/23/22 aerosol inhaler fluticasone fur. 100 mcg-umeclid 1 ea inhalation DAILY 06/23/22 06/23/22 62.5 mcg-vilant 25 mcg inhalat.powder (Trelegy Ellipta) Allergies Allergy/AdvReac Type Severity Reaction Status Date / Time No Known Allergies Allergy Unverified 06/23/22 11:17 General Stated Complaint: SOB CHRIS: 3 Review of Systems All systems reviewed & are unremarkable except as noted in HPI and below PFSH All Active Problems (Updated 06/23/22 @ 15:37 by Uriel Garrido DO) Pneumothorax on left (Acute) Dyspnea (Acute) Social History Smoking/Tobacco Use Status: Former Tobacco Use Smoking risk assessment performed?: Yes Alcohol Intake: never Drug use: Never Substance use type: marijuana Do you feel safe at home: Yes Do you feel safe in your relationship?: Yes Exam Narrative Exam Narrative: 1.Const: Cachectic appearing 2.Eyes: PERRL, no conjunctival injection, and symmetrical lids. 3.ENT: Atraumatic external nose and ears. Moist MM. Neck: Symmetric, trachea midline, No thyromegaly. 4.CVS: +S1/S2, No murmurs or gallops. Peripheral pulses 2+ and equal in all extremities. Brisk capillary refill in all extremities. 5.RESP: Slightly labored respiratory effort, diminished breath sounds on the left, scattered crackles and rhonchi bilaterally. 6.GI: Soft, Nontender/Nondistended, No hepatosplenomegaly. No guarding or rebound. 7.MSK: Normocephalic/Atraumatic, Extremities w/o deformity or ttp No cyanosis or clubbing, Normal movement of all extremities, no calf tenderness 8.Skin: Warm, Dry. No rashes or lesions. 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 Sensation grossly intact, no focal neurologic deficits. 10.Psych: (AAO) x3. Appropriate mood and affect Course Vital Signs Vital signs: Vital Signs Temperature 36.6 C 06/23/22 11:09 Pulse 97 H 06/23/22 11:09 Respiratory Rate 24 06/23/22 11:09 Blood Pressure 130/87 06/23/22 11:09 Pulse Oximetry 100 06/23/22 11:09 Temperature 36.6 C 06/23/22 11:09 Temperature Source Skin 06/23/22 11:09 Pulse 97 H 06/23/22 11:09 Respiratory Rate 24 06/23/22 11:09 Blood Pressure 130/87 06/23/22 11:09 Blood Pressure Position Sitting 06/23/22 11:09 Pulse Oximetry 100 06/23/22 11:09 Oxygen Delivery Method Nasal Cannula 06/23/22 11:09 Oxygen Flow Rate 4 06/23/22 11:09 Pain Level 7 06/23/22 11:09 Procedures Chest Tube Chest Tube 1: Chest Tube Location: mid axillary line Size of Armenian Tube (mm): 14 Chest Tube Prep: betadine prep, sterile drapes applied and sterile dressing applied Local Anesthetic: Bupivicaine 0.5% Amount of anesthesia used (mL): 7 Incision Made With: #10 blade Post Procedure: sutured to skin and sterile dressing applied Tube Drainage: see nurses notes Amount of initial drainage (mL): 0 Post Procedure CXR?: Yes Patient Tolerated Procedure: Yes Progress: Persistent bubbles, suspect chronic air leak Critical Care Time Critical Care Time Critical Care Time: Yes Total Critical Care Time: 45 Attestation: Upon my evaluation, this patient had a high probability of imminent or life- threatening deterioration, which required my direct attention, intervention, and personal management. I have personally provided 45 minutes of critical care time exclusive of time spent on separately billable procedures. Time includes review of laboratory data, radiology results, discussion with consultants, and monitoring for potential decompensation. Interventions were performed as documented.
[2022-06-23 11:48] LABS: Abs Immature Grans 0.05 10^3/uL (0.0-0.06); Absolute Basophil Count 0.03 10^3/uL (0.0-0.2); Absolute Eosinophil Count 0.06 10^3/uL (0.0-0.7); Absolute Monocyte Count 1.25 10^3/uL (0.1-0.8); BE (Venous) 2 mmol/L (-2-3); Basophils % 0.3; Eosinophils % 0.6; HCO3 (Venous) 28 mmol/L (23-28); HCT 34.4 % (40.0-50.0); HGB 10.6 g/dL (13.5-17.5); Immature Grans % 0.5; Lymphocytes % 8.3; MCH 26.7 pg (27.0-33.0); MCHC 30.8 % (32.0-36.0); MCV 87 fL (80-95); MPV 9.5 fL (8.0-11.0); Monocytes % 11.6; Neutrophils % 78.7; O2 Sat (Venous) 35 %; Platelet Count 612 10^3/uL (130-400); RBC 3.97 10^6/uL (4.36-5.78); RDW 16.8 % (11.8-14.1); RDW-SD 53.3 fL; TCO2 (Venous) 26 mmol/L (24-29); WBC 10.79 10^3/uL (4.4-10.8); pCO2 (Venous) 46 mmHg (41-51); pH (Venous) 7.38 (7.31-7.41); pO2 (Venous) 23 mmHg
[2022-06-23] MEDS: Albuterol/Ipratropium 3 ML UPD VIAL UPD (11:51)
[2022-06-23 12:08] LABS: ALT 15 U/L (16-63); AST 13 U/L (15-37); Albumin 3.1 g/dL (3.4-5.0); Alkaline Phosphatase 178 U/L (46-116); Anion Gap 7.6 mmol/L (3-11); BUN 25 mg/dL (7-18); Bilirubin, Total 0.3 mg/dL (0.2-1.0); CO2 29.4 mmol/L (21.0-32.0); CREATININE 1.4 mg/dL (0.70-1.30); Calcium 9.9 mg/dL (8.5-10.1); Chloride 101 mmol/L (98-107); Estimated GFR 54.75 (mL/min/1.73m2); Glucose 122 mg/dL (74-106); Potassium 4.8 mmol/L (3.5-5.1); Sodium 138 mmol/L (136-145); Total Protein 8.8 g/dL (6.4-8.2); Troponin I < 50 ng/L (<or=60)
[2022-06-23 12:22] LABS: INR 1.1 (0.9-1.1); Prothrombin Time 10.9 sec (9.3-11.0)
[2022-06-23 12:30] LABS: COVID-19 PCR Negative (Negative); Influenza A PCR Negative (Negative); Influenza B PCR Negative (Negative); RSV PCR Negative (Negative)
[2022-06-23 12:33] LABS: Source Nasopharynx
--- NOTE | 2022-06-23 12:43 | DI.CT_ITS ---
Exam(s) CT CHEST PE CTA EXAM: CT CHEST PE CTA CLINICAL HISTORY: SOB, chronic pneumothorax, cancer, eval PE/worse p. TECHNIQUE: Imaging Protocol: CT angiography of the chest was performed using pulmonary embolus oxana col. Multi planar reconstructions were performed. CONTRAST MATERIAL: Intravenous: Omnipaque 350 Contrast volume: 100 cc COMPARISON: CT CT ABDOMEN PELVIS W from 02/28/2022 CR XR CHEST 2V PA LATERAL from 06/12/2022 FINDINGS: CHEST: PULMONARY ARTERIES: There are no intraluminal filling defects to suggest acute pulmonary emboli. LUNGS: The size of the pneumothorax on the left side has significantly increased in size when compare d to the plain films of 06/12/2022. Now approximately 90 percent pneumothorax. In the opposite-righ t lung there is scarring in the sub apical region. There also nodular infiltrates throughout the rig ht lower lobe, the largest being in the posterior basal segment of the right lower lobe and measuring approximately 1.6 x 1.7 cm. No associated pleural fluid on either side.. MEDIASTINUM: There is right hilar adenopathy as well as subcarinal adenopathy. No adenopathy in the anterior mediastinal fat. CARDIAC: Heart size is upper normal. There is no pericardial effusion.Caliber thoracic aorta is some what prominent measuring 3.8 cm in the ascending aorta. There is no evidence of dissection. No nitish cardial effusion. There is no significant shift of the interventricular septum. PARTIALLY VISUALIZED UPPERMOST ABDOMEN: Left kidney not seen. No obvious adrenal masses. OSSEOUS: No significant osseous lesions.. IMPRESSION: 1. No evidence of acute pulmonary emboli. No evidence of pulmonary infarction.No pleural effusions. 2. There is now 90% left pneumothorax which has significantly increased compared to chest x-ray of . 3. There is subcarinal adenopathy as well as right hilar adenopathy. Called by myself to ER provider RADIATION DOSE DELIVERED: 548.65mGy.cm Total DLP DATA REPOSITORY: All CT scans at this facility are submitted to the National Radiology Data Registry (NRDR) Dose Index Registry (DIR) with the [employer] ([employer]). RADIATION OPTIMIZATION: All CT scans at this facility use at least one of these dose optimization te chniques: automated exposure control; mA and/or kV adjustment per patient size (includes targeted exa ms where dose is matched to clinical indication); or iterative reconstruction.
[2022-06-23 12:55] LABS: NT-proBNP 1305 pg/mL (<300)
[2022-06-23] MEDS: Omnipaque 350 MG/ML 500 ML BTL-Imaging package 100 ML IJ (13:28)
[2022-06-23] MEDS: MORPHine 4 MG/ML SYR IVP (14:16)
[2022-06-23] MEDS: Bupivacaine 0.5% Pres-Free 30 ML VIAL (14:49)
--- NOTE | 2022-06-23 14:50 | DI.RAD_ITS ---
Exam(s) XR PORTABLE CHEST AP EXAM: XR PORTABLE CHEST AP CLINICAL HISTORY: chest tube placement. TECHNIQUE: 2D digital imaging was performed. COMPARISON: CR XR CHEST 2V PA LATERAL from 06/12/[address] scan earlier today revealed a 90 percent left pneumothorax. FINDINGS: Single AP portable view. Heart size is upper normal. The mediastinum is not widened nor shifted.. Hyperinflation COPD changes again noted. There has been placement of a pigtail thoracotomy tube. Size of the left pneumothorax has significantly decreased when compared to the CT images earlier same date. Size of the remaining left pneumothorax is approximately equal to the x-ray of 06/12/2022, ap proximately 10-15 percent. No shift of midline structures. Nodular infiltrate noted in the right lung base which corresponds to the abnormal finding on CT scan the posterior basal segment of the right lower lobe. No pleural effusions. IMPRESSION: Post thoracotomy tube placement left side with significant re-expansion of the left lung. Close foll ow-up recommended. Nodular infiltrates in the right lung base evident. No obvious pleural effusions . No pulmonary edema. DATA REPOSITORY: RADIATION DOSE DELIVERED:
--- NOTE | 2022-06-23 16:18 | NUR.NOTE ---
Nursing Note: Removed patient from 2L O2. Continuous monitoring remains in place, O2 sats remain stable.
--- NOTE | 2022-06-23 16:43 | NUR.NOTE ---
Nursing Note: O2 sats holding at low 90s. Placed patient back on 1L NC. No complaints at this time, continuous monitoring remains in place.
--- NOTE | 2022-06-23 19:46 | HPE_ITS ---
Date of service: 06/23/22 Time of Service: 16:45 Assessment and Plan Assessment and plan (1) Pneumothorax on left: Status: Acute Assessment and plan: 67yo male with left pigtail thoracostomy in place for large left pneumothorax. 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 He was at an oncology appointment with Dr. Jones a few buildings from [facility] when his physician noted the patient's dyspnea and increased work of breathing and called EMS. Patient states that over the last 3 to 4 days he has had progressive worsening shortness of breath.? He is not normally on home oxygen.? He does live alone.? He states that every night he has been driving to the parking lot of the emergency department out of concern that his shortness of breath might get worse and he might need to come in, but he has not come in for presentation.? He denies history of blood clot, he denies history of cardiac disease, he denies any other complaints at this time.? Past surgical history is positive for left- sided nephrectomy.? He denies any falls or trauma.? Upon evaluation in the ED, he underwent a CTA of the chest, and no blood clots were detected, but he was found to have a large left pneumothorax. Dr. Garrido of the ED, placed a pigtial catheter in the left pleural space, and the pneumothorax nearly completely resolved, however, the patient has an ongong air leak. Admission to the surgical service was requested for chest tube management. The patient reports pain at the site of tube insertion, but his breathig feels much better and easier than at presentation. The patient usually obtains most of his medical care at [facility], and he emphasizes all of his records are there. An attempt was made to transfer him fr om the ED but no beds were available. Review of Systems Narrative: A 10-point ROS was conducted. Pertinent findings above. PFSH All Active Problems (Updated 06/23/22 @ 20:13 by Reji Romero MD) COPD (chronic obstructive pulmonary disease) (Chronic) Pneumothorax on left (Acute) Dyspnea (Acute) Medical History (Updated 06/23/22 @ 20:13 by Reji Romero MD) Bladder cancer Renal cancer Surgical History (Updated 06/23/22 @ 20:13 by Reji Romero MD) H/O left nephrectomy Social History Smoking/Tobacco Use Status: Former Tobacco Use Smoking risk assessment performed?: Yes Alcohol Intake: never Drug use: Never Substance use type: marijuana Do you feel safe at home: Yes Do you feel safe in your relationship?: Yes Meds Allergies and Home Medications Allergies Allergy/AdvReac Type Severity Reaction Status Date / Time No Known Allergies Allergy Unverified 06/23/22 11:17 Home Medications Medication Instructions Recorded Confirmed Type acetaminophen 500 mg tablet 1,000 mg PO Q6H PRN 09/30/17 02/28/22 History (Acetaminophen Extra Strength) tamsulosin 0.4 mg capsule 1 cap PO DAILY 02/28/22 06/23/22 History albuterol sulfate 90 mcg/actuation 180 inh inhalation Q4H 06/23/22 06/23/22 History aerosol inhaler fluticasone fur. 100 mcg-umeclid 1 ea inhalation DAILY 06/23/22 06/23/22 History 62.5 mcg-vilant 25 mcg inhalat.powder (Trelegy Ellipta) Exam Const General: cooperative, comfortable, no acute distress, frail appearing and ill appearing Nutritional Appearance: cachectic Orientation: alert, awake and oriented x3 Chest Chest: other (tube thoracostomy in place in left chest--large air leak) Resp Effort & Inspection: normal respiratory effort, able to speak in complete sentences, no grunting and no nasal flaring Auscultation: diminished lung sounds and vesicular breath sounds Cardio Rate: regular rate Rhythm: regular rhythm Heart Sounds: S1 normal and S2 normal GI Inspection: scaphoid Palpation: soft, not firm, no guarding and nontender Neuro General: patient alert, patient awake and patient oriented x3 Cognition: normal cognition Extrem General: no calf tenderness Psych Appearance: grossly normal Mental Status: mental status grossly normal Speech and Movement: speech and movement normal Mood: expansive Thought Process: normal Insight: insight good Judgment: judgment good Results Imaging CT scan - chest: report reviewed and image reviewed Additional studies: CTA CHest (06/23/2022): FINDINGS: CHEST: PULMONARY ARTERIES: There are no intraluminal filling defects to suggest acute pulmonary emboli. LUNGS: The size of the pneumothorax on the left side has significantly increased in size when compared to the plain films of 06/12/2022.? Now approximately 90 percent pneumothorax.? In the opposite-right lung there is scarring in the sub apical region.? There also nodular infiltrates throughout the right lower lobe, the largest being in the posterior basal segment of the right lower lobe and measuring approximately 1.6 x 1.7 cm.? No associated pleural fluid on either side.. MEDIASTINUM: There is right hilar adenopathy as well as subcarinal adenopathy.? No adenopathy in the anterior mediastinal fat. CARDIAC: Heart size is upper normal.? There is no pericardial effusion.Caliber thoracic aorta is somewhat prominent measuring 3.8 cm in the ascending aorta.? There is no evidence of dissection.? No pericardial effusion. ? There is no significant shift of the interventricular septum. PARTIALLY VISUALIZED UPPERMOST ABDOMEN: Left kidney not seen.? No obvious adrenal masses. OSSEOUS: No significant osseous lesions.. IMPRESSION: 1. No evidence of acute pulmonary emboli.? No evidence of pulmonary infarction.No pleural effusions. 2. There is now 90% left pneumothorax which has significantly increased compared to chest x-ray of 06/12/2022. 3. There is subcarinal adenopathy as well as right hilar adenopathy. Imaging Studies: CXR (06/23/2022): FINDINGS: Single AP portable view. Heart size is upper normal.? The mediastinum is not widened nor shifted.. Hyperinflation COPD changes again noted. There has been placement of a pigtail thoracotomy tube. Size of the left pneumothorax has significantly decreased when compared to the CT images earlier same date.? Size of the remaining left pneumothorax is approximately equal to the x-ray of 06/12/2022, approximately 10-15 percent.? No shift of midline structures. Nodular infiltrate noted in the right lung base which corresponds to the abnormal finding on CT scan the posterior basal segment of the right lower lobe.? No pleural effusions. IMPRESSION: Post thoracotomy tube placement left side with significant re-expansion of the left lung.? Close follow-up recommended.? Nodular infiltrates in the right lung base evident.? No obvious pleural effusions.? No pulmonary edema. Labs Result diagrams: 06/23/22 11:44 06/23/22 11:44 Labs: Laboratory Results - last 24 hr 06/23/22 06/23/22 06/23/22 11:44 11:44 11:44 WBC 10.79 RBC 3.97 L Hgb 10.6 L Hct 34.4 L MCV 87 MCH 26.7 L MCHC 30.8 L RDW 16.8 H Plt Count 612 H MPV 9.5 Immature Gran % 0.5 Neutrophils % 78.7 Lymphocytes % 8.3 Monocytes % 11.6 Eosinophils % 0.6 Basophils % 0.3 Nucleated RBC % 0.0 Absolute Neutrophils 8.50 H Absolute Lymphocytes 0.90 L Absolute Monocytes 1.25 H Absolute Eosinophils 0.06 Absolute Basophils 0.03 PT INR APTT VBG pH VBG pCO2 VBG pO2 VBG HCO3 VBG Total CO2 VBG O2 Saturation VBG Base Excess Sodium 138 Potassium 4.8 Chloride 101 Carbon Dioxide 29.4 Anion Gap 7.6 BUN 25 H Creatinine 1.4 H Est GFR (CKD-EPI 2020) 54.75 Glucose 122 H Calcium 9.9 Total Bilirubin 0.3 AST 13 L ALT 15 L Alkaline Phosphatase 178 H Troponin I < 50 NT-Pro-B Natriuret Pep 1305 H Total Protein 8.8 H Albumin 3.1 L COVID-19 Source Nasopharynx SARS-CoV-2 (PCR) Negative Influenza Type A (PCR) Negative Influenza Type B (PCR) Negative RSV (PCR) Negative 06/23/22 06/23/22 06/23/22 11:44 11:44 14:18 WBC RBC Hgb Hct MCV MCH MCHC RDW Plt Count MPV Immature Gran % Neutrophils % Lymphocytes % Monocytes % Eosinophils % Basophils % Nucleated RBC % Absolute Neutrophils Absolute Lymphocytes Absolute Monocytes Absolute Eosinophils Absolute Basophils PT 10.9 INR 1.1 APTT 29.0 H VBG pH 7.38 VBG pCO2 46 VBG pO2 23 VBG HCO3 28 VBG Total CO2 26 VBG O2 Saturation 35 VBG Base Excess 2 Sodium Potassium Chloride Carbon Dioxide Anion Gap BUN Creatinine Est GFR (CKD-EPI 2020) Glucose Calcium Total Bilirubin AST ALT Alkaline Phosphatase Troponin I Cancelled NT-Pro-B Natriuret Pep Total Protein Albumin COVID-19 Source SARS-CoV-2 (PCR) Influenza Type A (PCR) Influenza Type B (PCR) RSV (PCR) Last Vital Signs Temp 98.2 F 06/23/22 19:29 Pulse 82 06/23/22 19:29 Resp 16 06/23/22 19:29 BP 102/70 06/23/22 19:29 Pulse Ox 98 06/23/22 19:29 Time Spent Time spent with Patient: 40-54 minutes Time was spent: preparing to see the patient(eg.review tests), obtaining and/or reviewing separately otained hiistory, referring, communicating with other health acute care physician, indepentently interpreting results and counseling the patient
[2022-06-23] MEDS: oxyCODONE 5 MG TAB PO (21:24)
[2022-06-23] MEDS: Acetaminophen 325 MG TAB 650 MG PO (21:24)
[2022-06-24] VITALS (12 sets, daily range): BP systolic 92–113; BP diastolic 62–77; PULSE 68–79; RESP 16–18; TEMP 35.9–37.1; O2SAT 92–100
[2022-06-24 06:48] LABS: HCT 30.4 % (40.0-50.0); HGB 9.6 g/dL (13.5-17.5); MCH 27.4 pg (27.0-33.0); MCHC 31.6 % (32.0-36.0); MCV 87 fL (80-95); MPV 10.1 fL (8.0-11.0); Platelet Count 542 10^3/uL (130-400); RDW-SD 54.1 fL
[2022-06-24 07:10] LABS: ALT 20 U/L (16-63); AST 22 U/L (15-37); Albumin 2.7 g/dL (3.4-5.0); Alkaline Phosphatase 156 U/L (46-116); Anion Gap 3.9 mmol/L (3-11); BUN 28 mg/dL (7-18); Bilirubin, Total 0.2 mg/dL (0.2-1.0); CO2 27.1 mmol/L (21.0-32.0); CREATININE 1.4 mg/dL (0.70-1.30); Calcium 9.3 mg/dL (8.5-10.1); Chloride 100 mmol/L (98-107); Estimated GFR 54.75 (mL/min/1.73m2); Glucose 83 mg/dL (74-106); Potassium 4.5 mmol/L (3.5-5.1); Sodium 131 mmol/L (136-145); Total Protein 7.7 g/dL (6.4-8.2)
[2022-06-24] MEDS: Budesonide/Formoterol 80/4.5 6.9 GM 60 PUFF INH IH ×2 (07:59→19:22)
[2022-06-24] MEDS: Tiotropium Bromide-Respimat 10 PUFF INH 2 PUFF IH (08:02)
[2022-06-24] MEDS: Tamsulosin 0.4 MG CAPCR PO (08:20)
--- NOTE | 2022-06-24 08:33 | PDOC.CMIN ---
- If Service Date Differs Date of service: 06/24/22 Time of Service: 08:33 Care Management Initial Assess REASON FOR HOSPITALIZATION:: Left Pneumothorax PAST MEDICAL HISTORY/PAST SURGICAL HISTORY:: All Active Problems (Updated 06/23/22 @ 20:13 by Reji Romero MD). COPD (chronic obstructive pulmonary disease) (Chronic). Pneumothorax on left (Acute). Dyspnea (Acute). Medical History (Updated 06/23/22 @ 20:13 by Reji Romero MD). Bladder cancer. Renal cancer. Surgical History (Updated 06/23/22 @ 20:13 by Reji Romero MD). H/O left nephrectomy PREVIOUS FUNCTIONAL STATUS/SOCIAL/FAMILY SUPPORTS:: Kelvin lives alone in [facility]. He has 2 adult children, a son David from [place] and a son Bob from [place]. Kelvin is independent at [employer] [facility] [employer] and drives. 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 He is also a patient of [facility] and receives treatment at [facility] in [facility] for bladder and renal cancer. His last October, of Pancreatic Cancer. In addition, Kelvin shares that he is and spent alot of his life advocating for his culture. CURRENT FUNCTIONAL STATUS:: Kelvin is lying in bed when CM met with him. He is awake, alert and easily to engage in conversation. Kelvin shares with CM that he has late stage cancer and there is not much more Dr. Fiore can do. Per patient his last October of Pancreatic Cancer with Act 39. Per Kelvin, he has decisions to make surrounding his work schedule after discharge. If his prognosis is terminal with no hope for improved quality of life, he would also want to talk about Act 39. Kelvin has an outpatient appointment scheduled with Palliative care, and an inpatient consult is placed. ADVANCE DIRECTIVES:: On file, Alt [facility] is David. Has patient been provided with info about the portal/API?: Yes Did the patient sign up for the portal?: No CODE STATUS:: DNR/DNI INSURANCE COVERAGE / FINANCIAL ISSUES:: Health Plans CURRENT HOME/COMMUNITY SERVICES/EQUIPMENT:: Oncology Treatment at [facility], Dr. Fiore PRIMARY CARE PHYSICIAN:: Felicia Juan POTENTIAL DISCHARGE NEEDS:: Discharge plan of care, follow up appointments, Outpt Palliative, New [facility] services (if indicated). PATIENT/FAMILY EDUCATION NEEDS:: Review discharge instructions, limitations, medications and plan to follow up with community providers. Discuss ask me three. TRANSPORTATION:: Via private vehicle with family. PLAN:: Anticipate, Kelvin will discharge home when medically ready per Surgical. He will follow up with community providers and discharge plan of care as prescribed. CM will follow and support discharge planning needs.
--- NOTE | 2022-06-24 10:54 | CHAPLAIN ---
Kelvin was sitting up in his bed. He had a visitor with him. I introduced myself, explained my role and offered support.
[2022-06-24] MEDS: oxyCODONE 5 MG TAB PO (11:37)
--- NOTE | 2022-06-24 15:17 | W.PM.PROGNOT ---
Date of Service Date of service: 06/24/22 Time of Service: 15:18 Assessment and Plan Assessment and plan (1) Pneumothorax on left: Status: Acute Assessment and plan: 67yo male with secondary pneumothorax likely due to emphysematous changes. Still with large air leak. --maintain chest pigtail thoracostomy to suction --Dr. Kuhn to talk to and evaluate pt tomorrow for VATS pleurodesis (2) Cachexia: Status: Acute Assessment and plan: Pt with significant ongoing weight loss. Per oncology note by Dr. Mccann, he has had a 20 lbs weight loss since 04/2022. --nutrition consult (3) Renal cancer: Assessment and plan: Pt ia s/p left nephrectomy, and recently evaluated for tumor on the right side. Given metastatic cancer above and below the diaphragm and recent weight loss, the patient is realistic about his near future and wishes to speak to someone about his upcoming health care goals. --palliative care consult (4) COPD (chronic obstructive pulmonary disease): Status: Chronic Assessment and plan: Pt recently started on inhalers for SOB. --cont home inhalers --appreciate Hosipitalist input Subjective Subjective Interval history since last seen: Pt feels like his breathing is not too labored today, and he has not been hyperventilating. He denies any significant pain. Mr. Beth recognizes that he limited time left, and is hoping to achieve/maintain some quality of life. Exam Const General: cooperative, comfortable, no acute distress and frail appearing Nutritional Appearance: cachectic Orientation: alert, awake and oriented x3 Chest Chest: other (catheter thoracostomy in place in left chest--large air leak) Resp Effort & Inspection: normal respiratory effort, able to speak in complete sentences, no grunting and no nasal flaring Auscultation: diminished lung sounds and other (breath sounds audible in both apices) Cardio Rate: regular rate Rhythm: regular rhythm Heart Sounds: S1 normal and S2 normal GI Inspection: scaphoid Palpation: soft, not firm, no guarding and nontender Neuro General: patient alert, patient awake and patient oriented x3 Cognition: normal cognition Extrem General: no calf tenderness Psych Appearance: grossly normal Mental Status: mental status grossly normal Speech and Movement: speech and movement normal Mood: expansive Thought Process: normal Insight: insight good Judgment: judgment good Objective Last Vital Signs Temp 97.0 F L 06/24/22 11:42 Pulse 74 06/24/22 11:42 Resp 16 06/24/22 11:42 BP 112/77 06/24/22 11:42 Pulse Ox 97 06/24/22 11:42 Laboratory Results - last 24 hr 06/23/22 06/24/22 06/24/22 14:18 06:25 06:25 WBC 9.10 RBC 3.50 L Hgb 9.6 L Hct 30.4 L MCV 87 MCH 27.4 MCHC 31.6 L RDW 17.0 H Plt Count 542 H MPV 10.1 Sodium 131 L Potassium 4.5 Chloride 100 Carbon Dioxide 27.1 Anion Gap 3.9 BUN 28 H Creatinine 1.4 H Est GFR (CKD-EPI 2020) 54.75 Glucose 83 Calcium 9.3 Total Bilirubin 0.2 AST 22 ALT 20 Alkaline Phosphatase 156 H Troponin I Cancelled Total Protein 7.7 Albumin 2.7 L Time Spent with Patient Time Spent with Patient: 25-34 minutes Time was spent: preparing to see the patient(eg.review tests), obtaining and/or reviewing separately otained hiistory, referring, communicating with other health career technical counselor, indepentently interpreting results and counseling the patient
--- NOTE | 2022-06-24 17:33 | W.MEDCONSULT ---
Date of service: 06/24/22 Time of Service: 17:34 Assessment and Plan Assessment and plan (1) Pneumothorax on left: Status: Acute Assessment and plan: Management with chest tube reinflation of his left-sided pneumothorax. Patient continues to have an air leak. He seems to have a serous drainage about 50 mL over the course of today. Continued chest tube reinflation of his lung. Surgery will continue to manage this and determine when his chest tube can be placed to waterseal. (2) COPD (chronic obstructive pulmonary disease): Status: Chronic Assessment and plan: continue his Trelegy however, as our pharmacy does not carry this, he has been placed on Spiriva and symbicort. We can use albuterol aerosols prn wheezing. We should avoid use of acapella or IS as this could worsen his air leak. I do not see a need for oral or systemic corticosteroids at this time as he is not suffering from an exacerbation of his COPD. (3) Bladder cancer: Assessment and plan: he reports that he has cancer throughout his body. His CT scan certainly shows hilar and mediastinal adenopathy. He follows w/ Dr. Mccann from [facility] (4) Renal cancer: Assessment and plan: avoid NSAID and other potential nephrotoxins as he has only a solitary kidney (5) Cachexia: Status: Acute (6) Depression: Status: Chronic Assessment and plan: amanda has not been on any antidepresants or anti anxiety. However, he is willing to try antidepressants History of Present Illness History of Present Illness Chief Complaint: short of breath Narrative: 67-year-old male with a history of emphysema and stage IV metastatic bladder and history of renal cell carcinoma status post left nephrectomy is been followed by Dr. Mccann at [facility]. Patient presented to the emergency department yesterday with 3 to 4 days of progressive worsening dyspnea. Patient states he has been dyspneic for about a month now. But is gotten progressively worse over the last 3 to 4 days. He is not on home oxygen. He reportedly had a stable chronic left-sided pneumothorax apparently diagnosed on follow-up CT scanning [place] [facility] Patient states he was followed up with Dr. Mccann when EMS was called out and brought him to the emergency room because of severe dyspnea. His oxygen level were in the mid 80s when EMS arrived he was placed on supplemental oxygen at 4 L/min per nasal cannula. Upon evaluation emergency department he was saturating at 96% on 4 L nasal cannula. But with any kind of movement or activity he got subjectively more short of breath. He did not have evidence for tension pneumothorax but no pneumothorax was suspected given his prior history of his stable small pneumothorax. [id number] ultrasound confirmed that he had a significant left-sided pneumothorax and a CT scan was performed and showed 90% pneumothorax on the left. 14 Persian pigtail chest tube catheter was placed in the left midaxillary line at rib interspace 5. Patient had a persistent air leak but follow-up chest x-ray showed complete reinflation of the lung the patient was subjectively feeling better. Family requested transfer to [facility] but they were at full capacity and the patient could not be transferred. Patient was admitted to the surgical service of Dr. Romero. Hospitalist service was asked to consult on the medical basis. Patient reports poor appetite and 20 pound weight loss over the last 2 months. Patient has been depressed for past year since he lost his to pancreatic cancer. Appetite has been poor. He lives alone in [place], [place]. He has two sons in [facility]. Upon discharge he plans to live w/ one of them in [facility]. Review of Systems Constitutional Constitutional: Reports anorexia, Denies chills, Reports fatigue, Reports lethargy, Reports poor appetite and Reports weight loss Cardiovascular Cardiovascular: Reports system reviewed and no additional complaints, except as documented Respiratory Respiratory: Reports as per HPI Gastrointestinal Gastrointestinal: Reports as per HPI Genitourinary Genitourinary: Reports system reviewed and no additional complaints, except as documented Musculoskeletal Musculoskeletal: Reports system reviewed and no additional complaints, except as documented Integumentary/Breasts Skin/Breast: Reports system reviewed and no additional complaints, except as documented Neurologic Neurologic: Reports system reviewed and no additional complaints, except as documented Psychiatric Psychiatric: Reports abnormal sleep pattern, Reports anxiety, Reports change in appetite and Reports depression (Depressed x1 year since 's from pancreatic cancer) Endocrine Endocrine: Reports system reviewed and no additional complaints, except as documented and Reports fatigue Hematologic/Lymphatic Hematologic/Lymphatic: Reports system reviewed and no additional complaints, except as documented PFSH All Active Problems (Updated 06/24/22 @ 18:08 by Jay Brunner MD) Depression (Chronic) Cachexia (Acute) COPD (chronic obstructive pulmonary disease) (Chronic) Pneumothorax on left (Acute) Dyspnea (Acute) Medical History (Updated 06/24/22 @ 18:08 by Jay Brunner MD) Bladder cancer Renal cancer Surgical History (Updated 06/23/22 @ 20:13 by Reji Romero MD) H/O left nephrectomy Social History Smoking/Tobacco Use Status: Former Tobacco Use Smoking risk assessment performed?: Yes Alcohol Intake: never Drug use: Never Substance use type: marijuana Do you feel safe at home: Yes Do you feel safe in your relationship?: Yes Exam Narrative Exam Narrative: Cachectic male sitting up in bed not currently wearing oxygen. His SPO2 is in the mid 90s HEENT unremarkable Neck supple nontender with obvious muscular wasting no JVD trachea is midline Lungs diffusely diminished breath sounds throughout both sides with more diminished breath sounds over the left side with adventitious sounds from his chest tube Heart regular rate and rhythm Abdomen scaphoid soft and nontender Extremities without peripheral cyanosis or edema he has significant muscle wasting of his arms shoulders and legs. Results Last Vital Signs Temp 37.1 C 06/24/22 15:35 Pulse 73 06/24/22 15:35 Resp 16 06/24/22 15:35 BP 100/64 06/24/22 15:35 Pulse Ox 93 06/24/22 16:11 Labs Result diagrams: 06/24/22 06:25 06/24/22 06:25 Labs: Laboratory Results - last 24 hr 06/24/22 06/24/22 06:25 06:25 WBC 9.10 RBC 3.50 L Hgb 9.6 L Hct 30.4 L MCV 87 MCH 27.4 MCHC 31.6 L RDW 17.0 H Plt Count 542 H MPV 10.1 Sodium 131 L Potassium 4.5 Chloride 100 Carbon Dioxide 27.1 Anion Gap 3.9 BUN 28 H Creatinine 1.4 H Est GFR (CKD-EPI 2020) 54.75 Glucose 83 Calcium 9.3 Total Bilirubin 0.2 AST 22 ALT 20 Alkaline Phosphatase 156 H Total Protein 7.7 Albumin 2.7 L Imaging Chest x-ray: report reviewed and image reviewed CT scan - chest: report reviewed and image reviewed
[2022-06-24] MEDS: Protein Nutritional Supplement 16 GM 1 OUNCE PACKET PO (19:21)
[2022-06-24] MEDS: busPIRone 5 MG TAB PO (19:21)
[2022-06-24] MEDS: Normal Saline Flush 10 ML SYR IVP (19:24)
[2022-06-24] MEDS: Mirtazapine 15 MG TAB 7.5 MG PO (23:18)
[2022-06-25] VITALS (25 sets, daily range): BP systolic 69–137; BP diastolic 50–70; PULSE 77–106; RESP 12–23; TEMP 36.6–39.8; O2SAT 88–100
[2022-06-25 07:01] LABS: HCT 49.7 % (40.0-50.0); HGB 15.5 g/dL (13.5-17.5); MCH 26.7 pg (27.0-33.0); MCHC 31.2 % (32.0-36.0); MCV 86 fL (80-95); MPV 10.1 fL (8.0-11.0); Platelet Count 374 10^3/uL (130-400); RBC 5.81 10^6/uL (4.36-5.78); RDW 17.3 % (11.8-14.1); RDW-SD 53.2 fL; WBC 8.16 10^3/uL (4.4-10.8)
[2022-06-25 07:11] LABS: Anion Gap 9.9 mmol/L (3-11); BUN 27 mg/dL (7-18); CO2 24.1 mmol/L (21.0-32.0); CREATININE 1.6 mg/dL (0.70-1.30); Calcium 9.4 mg/dL (8.5-10.1); Chloride 101 mmol/L (98-107); Estimated GFR 46.64 (mL/min/1.73m2); Glucose 78 mg/dL (74-106); Potassium 4.4 mmol/L (3.5-5.1); Sodium 135 mmol/L (136-145)
--- NOTE | 2022-06-25 07:37 | W.PM.PROGNOT ---
Date of Service Date of service: 06/25/22 Time of Service: 07:37 Assessment and Plan Assessment and plan (1) Pneumothorax on left: Status: Acute Assessment and plan: 67yo male with secondary pneumothorax likely due to emphysematous changes. Still with large air leak. maintain chest pigtail thoracostomy to suction Dr. Kuhn to talk to and evaluate pt today for VATS pleurodesis I saw and examined Mr. Beth around 4 PM. Generally I agree with Lakeisha Caal's notes. Unfortunately, throughout the afternoon, lisa become increasingly febrile, with lower blood pressures. On exam, he looks fairly comfortable, and he offers no particular complaints. His chest x-ray with the chest tube on waterseal today showed that the lung was mostly reinflated with some basilar pneumothorax. Currently, his trachea is in the midline, and he does have breath sounds on the left side. Certainly, however, his blood pressure trend through the day has been decreasing. Fortunately, he has responded a little bit to some intravenous fluids. The remainder of his physical exam is mostly unremarkable for any indicators of a source of septic shock. We talked for a long while about sepsis, and the differential diagnosis for sources of infection which would generally include bloodstream infection, pneumonia, and urinary tract infection. Since his urinary tract was recently instrumented, we will send urinalysis, although I would not expect a UTI infection to result in such a significant fever. I explained that the more likely setting here would be bacteremia, especially with his mildly metastatic disease. For now, we will increase intravenous fluid resuscitation, and trend the serum lactate, which is slightly elevated. We added some broad-spectrum antibiotics today to help cover sepsis, and we will have to see how he responds over the next few hours. He is agreeable to insertion of a central line if needed, and the use of vasoactive medications. I will also switch the chest tube back to suction to see if that helps his hemodynamics. If we can get control of his blood pressure, and identify source of sepsis, and then we can revisit more definitive treatment for the pneumothorax. (2) Cachexia: Status: Acute Assessment and plan: Pt with significant ongoing weight loss. Per oncology note by Dr. Mccann, he has had a 20 lbs weight loss since 04/2022. --nutrition consult (3) Renal cancer: Status: Chronic Assessment and plan: Pt ia s/p left nephrectomy, and recently evaluated for tumor on the right side. Given metastatic cancer above and below the diaphragm and recent weight loss, the patient is realistic about his near future and wishes to speak to someone about his upcoming health care goals. --palliative care consult (4) COPD (chronic obstructive pulmonary disease): Status: Chronic Assessment and plan: Pt recently started on inhalers for SOB. --cont home inhalers --appreciate Hosipitalist input Subjective Subjective Interval history since last seen: Arrive with patient resting comfortably. He denies any SOB, chest pain or discomfort. Exam Const General: cooperative, comfortable and frail appearing Orientation: alert and oriented x3 Resp Effort & Inspection: normal respiratory effort, no audible wheezes and no cough Auscultation: diminished lung sounds Other: Chest tube in place, left side. Large air leak noted on exam. Objective Last Vital Signs Temp 37.3 C 06/25/22 03:22 Pulse 84 06/25/22 03:22 Resp 20 06/25/22 03:22 BP 102/67 06/25/22 03:22 Pulse Ox 96 06/25/22 03:22 Laboratory Results - last 24 hr 06/25/22 06/25/22 05:55 05:55 WBC 8.16 RBC 5.81 H Hgb 15.5 D Hct 49.7 MCV 86 MCH 26.7 L MCHC 31.2 L RDW 17.3 H Plt Count 374 MPV 10.1 Sodium 135 L Potassium 4.4 Chloride 101 Carbon Dioxide 24.1 Anion Gap 9.9 BUN 27 H Creatinine 1.6 H Est GFR (CKD-EPI 2020) 46.64 Glucose 78 Calcium 9.4 Time Spent with Patient Time Spent with Patient: <25 minutes Time was spent: preparing to see the patient(eg.review tests)
[2022-06-25] MEDS: Tiotropium Bromide-Respimat 10 PUFF INH 2 PUFF IH (07:52)
[2022-06-25] MEDS: Budesonide/Formoterol 80/4.5 6.9 GM 60 PUFF INH IH ×2 (07:52→21:00)
[2022-06-25] MEDS: Dronabinol 2.5 MG CAP PO ×2 (07:58→18:56)
[2022-06-25] MEDS: busPIRone 5 MG TAB PO ×3 (07:58→21:45)
[2022-06-25] MEDS: Acetaminophen 325 MG TAB 650 MG PO ×2 (07:59→15:28)
[2022-06-25] MEDS: Tamsulosin 0.4 MG CAPCR PO (07:59)
[2022-06-25] MEDS: Protein Nutritional Supplement 16 GM 1 OUNCE PACKET PO ×2 (07:59→21:45)
[2022-06-25] MEDS: Multivitamin TAB 1 TAB PO (07:59)
[2022-06-25] MEDS: Sertraline 50 MG TAB PO (07:59)
[2022-06-25] MEDS: Normal Saline Flush 10 ML SYR IVP ×3 (08:00→21:46)
--- NOTE | 2022-06-25 10:24 | CMPROGNOTE_ITS ---
- If Service Date Differs Date of service: 06/25/22 Time of Service: 10:24 Care Management Progress Note S/O: Kelvin continues to require hospitalization and is being followed by Surgery and hospital medicine is consulted. He is open to talking with Palliative today about his health goals. Per pt, he has late stage cancer and there is not much more Dr. Fiore can do. His last October of Pancreatic Cancer with Act 39 and if his prognosis is terminal with no hope for improved quality of life, he would also want to talk about Act 39. Palliative consult is planned for this afternoon. 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 Overall, pt seems knowledgeable in regards to his prognosis and shares with this show card writer that his priority is to have all of his affairs in order for his sons and he is close to having everything wrapped up with his state's attorney. A: 67 year old male admitted to [facility] on 06/23/22 for Left Pneumothorax P: Anticipate, Kelvin will discharge home with [facility] RN,PT,OT,DESIGN PAINTER when medically ready per Surgical. He indicates that he does not want to go to a SNF. CM will follow and support discharge planning needs.
[2022-06-25 12:03] LABS: Procalcitonin 0.3 ng/mL
--- NOTE | 2022-06-25 13:01 | PCNE_ITS ---
Date of service: 06/25/22 Time of Service: 13:01 History of Present Illness Narrative: Mr. Beth is 67-year-old male with a history of emphysema and stage IV metastatic bladder and history of renal cell carcinoma status post left nephrectomy who has been followed by Dr. Mccann at [facility].? Patient presented to the emergency department 06/23/22 with several days of progressive worsening dyspnea.? Patient states he has been dyspneic for about a month now.? But is gotten progressively worse over the last 3 to 4 days.? 2 days ago he presented to the ED where he was found to have left-sided pneumothorax. Chest tube was placed by surgery and he was admitted to surgical service. -Patient diagnosed initially with bladder cancer 2015. This was treated with TURBT multiple times. Then received second diagnosis of urothelial cancer in September 2017. This required ureteral stenting, with this tumor was metastatic to lymph nodes at the time of diagnosis. He also developed small bowel obstruction at that time. Underwent chemotherapy 2017. Diagnosed with recurrence with new right renal mass February 2022. April 2022 underwent repeat cysto scopTURBT, findings included a large right renal pelvis tumor which was felt not to be resectable. At last oncology visit on day of admission to [facility], his oncologist wrote that he had widely metastatic urothelial cancer, and that his performance status was low. There were some options available for treatment including immunotherapy, but oncology was leaning towards recommending palliative care or hospice because of his poor performance status. The plan was for him to follow-up with [facility] palliative care team for consultation as an outpatient. -Patient was seen in consultation by internal medicine yesterday, Dr. Faustin. He and the patient agreed that he was suffering from depression, combination of grief reaction from his 's as well as adjusting to his metastatic cancer. Dr. Faustin recommended starting patient on antidepressant. The patient in the last 24 hours was started on sertraline 50 mg in the morning and mirtazapine 7.5 mg at night. Patient is also getting dronabinol 2.5 mg twice a day before meals and buspirone 5 mg 3 times daily to help with anxiety. Pt reports that prior to admission he was using edible THC nightly for help with sleep (did not help his appetite and was not having pain) -Pain: Patient received 1 dose of oxycodone 5 mg for pain yesterday morning Additional imaging results available in [facility] system: [facility] May 2022 PET scan report (compared to October 2021 PET scan): New avid adenopathy left supraclavicular, right hilar, subcarinal and abdominal aorta caval regions consistent with priscilla metastases.... Multiple new small avid ill- defined opacities scattered throughout the right lower lobe, may represent postobstructive inflammatory focus, however lymphangitic spread of metastases cannot be excluded.... Unexpected finding, new very small left upper lobe pneumothorax contiguous with bullous emphysematous change in the medial left apex Care Team: Primary Care physician: [facility] Oncology: Dr. See, [facility] Urology:[facility] surgery (admitting attending): Dr. Kuhn and others Social HX: Occupation: within the last year of pancreatic cancer. Older son David and nhyohori-vx-osk Felicia lives in [facility]. Younger son Bob lives in [facility] Impression of currents health status: Not doing well. No more treatment available. What bothers you the most: Shortness of breath, especially with exertion. This is the only time he feels scared, when the shortness of breath gets bad. What worries you the most: I would like to survive as an independent person. Palliative Performance Scale % Ambulation Activity and Evidence of Disease Self Care Intake Level of Consciousness 100 Full Normal activity, no evidence of disease Full Normal Full 90 Full Normal activity, some evidence of disease Full Normal Full 80 Full Normal activity with effort, some evidence of disease Full Normal or reduced Full 70 Reduced Unable to do normal work, some evidence of disease Full Normal or reduced Full 60 Reduced Unable to do hobby or some housework, significant disease Occasional assist necessary Normal or reduced Full or confusion 50 Mainly sit/lie Unable to do any work, extensive disease Considerable assistance required Normal or reduced Full or confusion 40 Mainly in bed Unable to do any work, extensive disease Mainly assistance Normal or reduced Full, drowsy, or confusion 30 Totally bed bound Unable to do any work, extensive disease Total care Reduced Full, drowsy, or confusion 20 Totally bed bound Unable to do any work, extensive disease Total care Minimal sips Full, drowsy, or confusion 10 Totally bed bound Unable to do any work, extensive disease Total care Mouth care only Drowsy or coma 0 - - - - Patient Score: 30 Spiritual history: Pt identifies as , but did not elaborate on how this effects his spirituality Palliative review of systems: Pain: No pain Dyspnea: See HPI GI symptoms: None Appetite: Over the last month to short of breath to prepare meals, lost his appetite. Depression: Thinks he is probably still depressed over the of Anxiety: When short of breath Emotional Distress: Denies Spiritual/Existential Distress: Denies Labs: Cr: 1.6 (range 1.2-1.4 over the last year) Liver panel: Transaminases and bilirubin normal Albumin: 3.1% 06/23 (down from February level 3.8%) CBC: Hematocrit today 49.7% (30.4% yesterday ,?) Advanced Care Planning: Advanced Directive:Advanced directive from October 2021 on file Health Care Agent: Jeannie listed as primary agent (she within the last year), son David as secondary COLST: Hospital chart since DNI/DNR but no formal CODE STATUS been done. Limitations: Assessment and Plan Assessment and plan (1) COPD (chronic obstructive pulmonary disease): Status: Chronic (2) Palliative care patient: Status: Acute Assessment and plan: - (3) Renal cancer: Status: Chronic (4) Metastatic renal cell carcinoma to lung: Status: Acute Assessment and plan: Patient with renal cell carcinoma metastatic to lung on top of significant COPD with evidence of bullae on previous imaging. Now with secondary pneumothorax. Somewhat better with chest tube in place. Oncology felt that given his low functional status, he was unlikely to benefit from palliative immunotherapy. (5) Pneumothorax on left: Status: Acute Assessment and plan: Further treatment as per surgical team. For dyspnea: Suggest trial of oral morphine elixir 2-4 mg orally or sublingually every 1-2 hours as needed for severe dyspnea. Could be used before transferring her ambulation. (6) Advanced care planning/counseling discussion: Status: Acute Assessment and plan: Lengthy discussion during 2 separate meetings with patient today. His brother and irnsqe-vm-qkh were present at the first meeting and his 2 sons were present at the second meeting. Goals and values explored. It is important for him to be with family. He would prefer to be at home but feels he is no longer able to remain at home alone and family unable to care for him in his home. I asked about his experience throughout his 's illness and end-of-life including time on hospice. He was reluctant to discuss this even though asked several times. He and his son David agreed that the best place for him to be after hospital discharge would be in David's home [place]. His wish is to at home , and this includes David's home. COLST form: Initially said he did not want CPR or intubation. His kgcujh-gs-man was present during the first discussion and urged him to consider CPR. Further discussion when his sons were present (without [id number]), after consideration he does not want CPR or intubation given the very low likelihood of giving him any additional quality time. COLST form was completed as DNR/DNI, transfer and treat. He agreed to revisit limitations of care once the pneumothorax has resolved. Act 39: Although patient was reluctant to talk about feelings or concerns around his current illness or his 's illness, he did ask about Act 39. It should be noted that his did go through the Act 39 process about 6 months ago. When I asked him what made him decide to ask about it, he said I guess I am supposed to ask about that . I attempted to explore his concerns over end-of-life, and in what situation he thought he might utilize this process. He was unable to verbalize any specific situation. It also came out that he was not present when his . His major concern about act 39 is that he anticipated being at his son's house in [place] and that he would not be able to do it. In the end, I think the patient was feeling quite ill today, given fever and hypotension. I briefly described act 39, left with [facility] nformation handout and propose discussing this again next time palliative medicine or hospice team meets with him. Whoever has ongoing discussion with him needs to explore his impression of exactly what act 39 is and explore what his concerns are and how he thinks this process will help him. Healthcare agent form: Additionally, new healthcare agent form was completed making David his primary healthcare agent and Bob his secondary healthcare agent. Discussion around hospice: Initial discussion with patient he was interested in comfort care and being able to go to his son's house, not pursuing any further treatment. I recommended that [facility] meet with him and his fa billy tomorrow in the hospital to discuss hospice and what this would entail, even though at this point it appears most likely he would be admitted to hospice agency in [place]. Son David and his Felicia (a [facility] nurse) have set him up appointment a week from today with a hospice agency in the [place] area. They are declining to meet with [facility] at this time. They prefer to wait until next week to meet with the [place] hospice. Briefly discussed possible alternative options for discharge: Private care homes, SNF, [facility], unsure if he qualifies for these.. THis can be discussed further with CM. I told David that [facility] is willing to come and talk to them if they change their mind; may need to inform nursing staff or case management. Brief discussion with Dr. Laurel Wallis of [facility]. She actually met the patient several times while she was caring for his Jeannie Murillo when she was on hospice. She agreed that [facility] is happy to come in and discuss hospice with the family if they change their mind, (even if they are going to move him to [place]). Palliative care sales floor team member will try to follow-up with patient and family tomorrow. Radha Anderson NP covering service 06/26/22 (7) DNR (do not resuscitate): Status: Acute Assessment and plan: COLST completed and copies given to CM and MS secretary to the vice president. Dr. Brunner aware of DNI/DNR (8) DNI (do not intubate): Status: Acute (9) Grief reaction: Status: Chronic Assessment and plan: Treatment team feels that patient is still grieving from his 's and also likely has depression. He was started in the last 24 hours on SSRI and mirtazapine at bedtime. Additionally getting buspirone to help with anxiety. -Unfortunately, given his advanced cancer and debilitation, less likely that antidepressants will be helpful for his symptoms. It will also take from 2 to 4 weeks to kick in. However mirtazapine may help sooner with sleep. Suggest citalopram rather than sertraline for SSRI (less likely to cause nausea and anorexia during induction and citalopram may increase appetite). -Buspirone can be quite helpful for some people but may take a while to work as well. Consider use of benzodiazepines as needed for significant anxiety. (Although patient identifies air hunger as cause of most fear and anxiety; this may be better treated with the low dose oral morphine elixir. -Hospital in shop service technician is meeting with patient and family ongoing. -Continued support from case management, nursing staff, treatment team [facility] All Active Problems (Updated 06/25/22 @ 21:13 by Samira Roldan MD) Grief reaction (Chronic) DNI (do not intubate) (Acute) DNR (do not resuscitate) (Acute) Advanced care planning/counseling discussion (Acute) Metastatic renal cell carcinoma to lung (Acute) Renal cancer (Chronic) Sepsis (Acute) Palliative care patient (Acute) Depression (Chronic) Cachexia (Acute) COPD (chronic obstructive pulmonary disease) (Chronic) Pneumothorax on left (Acute) Dyspnea (Acute) Medical History (Updated 06/25/22 @ 21:13 by Samira Roldan MD) Bladder cancer Surgical History (Updated 06/23/22 @ 20:13 by Reji Romero MD) H/O left nephrectomy Social History Smoking/Tobacco Use Status: Former Tobacco Use Smoking risk assessment performed?: Yes Alcohol Intake: never Drug use: Never Substance use type: marijuana Do you feel safe at home: Yes Do you feel safe in your relationship?: Yes Exam Narrative Exam Narrative: Initial meeting with patient at approximately 1300, he is acutely dyspneic and tachypneic with occasional productive cough. In significant respiratory distress whenever sitting up or changing position. Cachectic (describes that he is 6 foot tall and lifetime weight was in the 120s, always very thin, weight down to 100 now). He is able to speak in 4-5 word sentences before having to breathe. He is able to sit up on edge of bed and lay back down unassisted. In retrospect he was febrile at this point and was found to have a low blood pressure. Second meeting with patient at 1600 after receiving some IV hydration, much less dyspneic. Able to speak in longer sentences, respiratory rate down to about 20. Results Last Vital Signs Temp 37.2 C 06/25/22 11:13 Pulse 87 06/25/22 11:13 Resp 19 06/25/22 11:13 BP 99/61 L 06/25/22 11:13 Pulse Ox 92 06/25/22 11:13 Labs Result diagrams: 06/25/22 16:42 06/25/22 16:42 Labs: Laboratory Results - last 24 hr 06/25/22 06/25/22 06/25/22 05:55 05:55 05:55 WBC 8.16 RBC 5.81 H Hgb 15.5 D Hct 49.7 MCV 86 MCH 26.7 L MCHC 31.2 L RDW 17.3 H Plt Count 374 MPV 10.1 Sodium 135 L Potassium 4.4 Chloride 101 Carbon Dioxide 24.1 Anion Gap 9.9 BUN 27 H Creatinine 1.6 H Est GFR (CKD-EPI 2020) 46.64 Glucose 78 Calcium 9.4 Procalcitonin 0.3
--- NOTE | 2022-06-25 14:00 | DI.RAD_ITS ---
Exam(s) XR PORTABLE CHEST AP EXAM: XR PORTABLE CHEST AP CLINICAL HISTORY: pneumothorax. TECHNIQUE: 2D digital imaging was performed. COMPARISON: CR XR CHEST 2V PA LATERAL from 06/12/2022 CR XR PORTABLE CHEST AP from 06/23/2022 FINDINGS: Single AP portable view. Heart size is upper normal. The mediastinum is not widened. Left pleural space pigtail catheter is again noted. The size of the left pneumothorax as further inc reased inferiorly and remains similar to previous superiorly. No shift of midline structures. Sligh t flattening of the left hemidiaphragm is noted. No new infiltrates in either lung field. IMPRESSION: Slight increase in size of the left side pneumothorax when compared to 06/23/2022. DATA REPOSITORY: RADIATION DOSE DELIVERED:
[2022-06-25 14:55] LABS: Bilirubin Negative (Negative); Blood Moderate (Negative); Clarity Cloudy (Clear); Glucose Negative (Negative); Ketones Negative (Negative); Leukocyte Esterase Large (Negative); Nitrite Positive (Negative); Specific Gravity 1.015 (1.005-1.025); Urobilinogen 0.2 EU/dL (Up TO 0.2)
[2022-06-25 15:11] LABS: C & S Indicated? Yes; WBC >50 HPF (0-5)
--- NOTE | 2022-06-25 15:26 | W.NUTCONSULT ---
Date of service: 06/25/22 Time of Service: 15:26 Nutritional Consult ASSESSMENT: : A : Pt has a nutritionally significant PMH of stage 4 metastatic bladder and renal cancer. ED note observes that he appears to be cachectic with BMI of 13.? His labs show elevated BUN, creatinine, and decreased Na. Pt is taking Proheal while he?s here, and takes a multivitamin at home. Tried to meet with pt today, but he was unavailable d/t meeting with palliative care. Per his colst form, he is consenting to artificial nutrition for a short period of time if it comes to that. D/t recommendation from the and potential changes to advanced directive, will attempt to make contact with him again tomorrow. During visit with him, will discuss what kind of diet/protein supplements he would like to have to try to maintain some of his weight. D: Protein-energy malnutrition, related to stage 4 renal and bladder cancer, as evidenced by BMI of 13. Intervention: continue supplementing pt with high protein/ calorie food and drink as pt tolerates it. M/E: Monitor pt for further wt loss, percentage of meal intakes and labs. Jailyn Williamson, Student Telephone Station Installer Time Spent in Nutritional Counseling and Treatment: 0
[2022-06-25] MEDS: Lactated Ringers 500 ML 1000 ML IV (16:00)
--- NOTE | 2022-06-25 16:34 | PHA.REVIEW2 ---
Pharmacy Admission Review - Admission Clinical Review (Last Updated 06/23/22 @ 20:13 by Reji Romero MD) Palliative care patient (Acute) Cachexia (Acute) Pneumothorax on left (Acute) Dyspnea (Acute) No Known Allergies Allergy (Unverified 06/23/22 11:17) Resuscitation Status DNR/DNI Height 6 ft Weight 45.813 kg - Renal Dosing Renal Dosing: BUN 27 mg/dL (7-18) H 06/25/22 05:55 Creatinine 1.6 mg/dL (0.70-1.30) H 06/25/22 05:55 Medications needing adjustments: Intervened (Crcl ~28.63 mL/min consider decreasing the oxycodone dose by 50% and/or increasing the interval to Q8H, will mention to provider) - Anticoagulation Anticoagulation: Hgb 15.5 g/dL (13.5-17.5) D 06/25/22 05:55 Hct 49.7 % (40.0-50.0) 06/25/22 05:55 Plt Count 374 10^3/uL (130-400) 06/25/22 05:55 INR 1.1 (0.9-1.1) 06/23/22 11:44 Creatinine 1.6 mg/dL (0.70-1.30) H 06/25/22 05:55 DVT Prophylaxis: Intervened (No chemical prophylaxis ordered, nor are TEDS or SCDs ordered. Nothing mentioned in H&P or progress note regarding this so will ask provider about possible need.) Therapeutic Anticoagulation: N/A - Opiate Usage Evaluate Pain Scale/Pains Meds: Reviewed Scheduled Bowel Reg ordered if on Opiates?: Yes - Relevant Labs Sodium 135 mmol/L (136-145) L 06/25/22 05:55 Potassium 4.4 mmol/L (3.5-5.1) 06/25/22 05:55 Chloride 101 mmol/L (98-107) 06/25/22 05:55 Electrolytes, C-Reactive P, ESR: Reviewed - DM Control DM Control: Glucose 78 mg/dL (74-106) 06/25/22 05:55 DM Control: Reviewed (No DM noted in medical history) Insulin Dosing, Diabetic Medication: n/a - Cardiac Review Cardiac Review: Troponin I Cancelled 06/23/22 14:18 NT-Pro-B Natriuret Pep 1305 pg/mL (<300) H 06/23/22 11:44 BP, HR, EF%: Reviewed (BP has been low to normal and HR has been normal to elevated most of admission so far) - Qtc Review QTc: Reviewed (QTc 462 on admission) If Elevated, List meds needing intervention: n/a - IV to PO Switch IV Medications: Reviewed - Home Meds Home Med List reviewed: Reviewed Relevent Home Meds Not ordered & why?: kaykay marie- has symbicort and spiriva subbed for this - Current meds Current Medication Order Review: Reviewed - Comments Comments/Follow Ups: Watch VS, labs, for culture results and for med changes (possible renal dose adjustments, possible VTE prophylaxis) Antibiotic Review - Pharmacy Antibiotic Review Pharmacy Antibiotic Activity: Abx regimen adjustment (Tmax 39.8 Vanco and ceftriaxone ordered ), C/S review (BC and UC pending) Relevant Labs: Relevant Labs 06/25/22 05:55 Procalcitonin 0.3
[2022-06-25] MEDS: cefTRIAXone 2 GM/50 ML BAG IVPB (16:44)
[2022-06-25 16:51] LABS: Lactate 1.8 mmol/L (0.6-1.4)
[2022-06-25 16:52] LABS: Abs Immature Grans 0.05 10^3/uL (0.0-0.06); Absolute Basophil Count 0.03 10^3/uL (0.0-0.2); Absolute Eosinophil Count 0.01 10^3/uL (0.0-0.7); Absolute Lymphocyte Count 0.36 10^3/uL (1.2-3.4); Absolute Monocyte Count 1.12 10^3/uL (0.1-0.8); Absolute Neutrophil Count 11.66 10^3/uL (1.2-6.7); Basophils % 0.2; Eosinophils % 0.1; HCT 28.1 % (40.0-50.0); HGB 9.2 g/dL (13.5-17.5); Immature Grans % 0.4; Lymphocytes % 2.7; MCH 27.5 pg (27.0-33.0); MCHC 32.7 % (32.0-36.0); MCV 84 fL (80-95); MPV 9.7 fL (8.0-11.0); Monocytes % 8.5; Neutrophils % 88.1; Platelet Count 534 10^3/uL (130-400); RBC 3.35 10^6/uL (4.36-5.78); RDW 16.8 % (11.8-14.1); RDW-SD 51.9 fL; WBC 13.23 10^3/uL (4.4-10.8)
--- NOTE | 2022-06-25 17:03 | CHAPLAIN ---
Kelvin was just finishing speaking with the surgeon and Dr. Roldan from Palliative Care when I visited. His two sons were also with him. Kelvin is being moved to the ICU because of a fever. According to Palliative Care notes, Kelvin's in October, using Act 39, and Kelvin would be interested in discussing this for himself depending on his prognosis. He is aware and realistic about the progression of his cancer. Kelvin has told staff that his heritage is important to him. Yesterday when I visited, Kelvin did not seem interested in a strength and conditioning coach visit. Today he said I'm going to the ICU, but campo around tomorrow if you'd like. I will visit tomorrow. Dr. Roldan helped Kelvin complete a new AD naming his sons as his health care agents. Kelvin's sister and brother in law are in town and will also be visiting. I let Kelvin and his son's know that strength and conditioning coach is available 28/12.
[2022-06-25 17:20] LABS: ALT 17 U/L (16-63); AST 14 U/L (15-37); Albumin 2.5 g/dL (3.4-5.0); Alkaline Phosphatase 159 U/L (46-116); Anion Gap 9.3 mmol/L (3-11); BUN 29 mg/dL (7-18); Bilirubin, Total 0.4 mg/dL (0.2-1.0); CO2 23.7 mmol/L (21.0-32.0); CREATININE 1.7 mg/dL (0.70-1.30); Calcium 8.6 mg/dL (8.5-10.1); Chloride 101 mmol/L (98-107); Estimated GFR 43.37 (mL/min/1.73m2); Glucose 120 mg/dL (74-106); Potassium 4.4 mmol/L (3.5-5.1); Sodium 134 mmol/L (136-145); Total Protein 7.2 g/dL (6.4-8.2)
--- NOTE | 2022-06-25 17:33 | PGE_ITS ---
Date of Service Date of service: 06/25/22 Time of Service: 15:30 Assessment and Plan Assessment and plan (1) Sepsis: Status: Acute Assessment and plan: Likely source is either lung or urinary tract I would favor the latter given his history of long-term urinary retention and difficulty voiding and the fact that his CT scan did not show any pulmonary infiltrates. However given his metastatic cancer he could have other sources of infection but his abdominal exam is benign from a respiratory standpoint he is having no sputum production and is not having worsening hypoxemia. He is maintaining saturation quite well on room air or just 1 L/min per nasal cannula. I will asked nursing to obtain blood cultures and urine culture and if he is not able to void for them volun tarily I will asked him to straight cath him. We will start broad-spectrum antibiotics with Rocephin and vancomycin. Patient be transferred to intensive care unit. 500 mL bolus of LR was given with improvement in his blood pressure into the 90s systolic. Patient remains DNR/DNI per the patient's request. Patient completed C.O.L.S.T. form with Samira Roldan MD, palliative care physician. Dr. Kuhn explained to the patient and the family that he may require vasopressors and may require a central line if he is not responding to fluid boluses. Critical care time spent interviewing and examining the patient, reviewing studies, discussing case with patient's nurse and consulting physicians was 40 minutes (2) Depression: Status: Chronic Assessment and plan: Sertraline changed to citalopram at the recommendation of Dr. Roldan. Marinol is being given to stimulate his appetite we will continue with Remeron at night. (3) COPD (chronic obstructive pulmonary disease): Status: Chronic Assessment and plan: Continue bronchodilators including L.A.M.A. and ICS and as needed beta agonist. (4) Pneumothorax on left: Status: Acute Assessment and plan: Continue chest tube to low intermittent wall suction. Surgery currently managing. (5) Cachexia: Status: Acute Assessment and plan: Nutritional consult is been obtained patient's been placed on protein shakes and multivitamin supplements Subjective Subjective Interval history since last seen: Patient has had recurrent fevers today, T max 39.8 and now he is having hypotension w/ BP 88/60, I checked repeat per small arm manual cuff and got 78 systolic. Despite this he denies any dizziness, pain or acute dyspnea. Chest tube still has air leak but repeat CXR shows his lung is still has persistent pneumothorax but not as large like when he first presented. Patient was seen w/ Dr. Kuhn who had a lengthy discussion of the patient's problems and explained in detail to his sons, and his [id number] Mr. Beth's pneumothorax, concerns that it may not seal on its own and may need further procedure (blood patch, pleurodesis or even VATS) and also explained that his fever and hypotension represents sepsis and that we do not know the source but suspect urinary but can not exclude a pulmonary source although his CT findings were not suggestive of pneumonia. Patient denies any sputum production, no dysuria althoug he has long hx of urinary symptoms of retention/difficulty starting/stopping stream and small voids. He denies any abdominal pain or nausea and no CP. Exam Narrative Exam Narrative: Thin cachectic male who is alert and oriented person place time circumstance he is able to carry on a conversation with his family and seems to understand his condition and prognosis. Denies any pain and does not appear to be in any acute respiratory distress. Lungs diffusely diminished breath sounds without rhonchi or wheezes some harsh breath sounds at the left lung base secondary to the chest tube Heart is regular rate and rhythm Abdomen is scaphoid soft and nontender and he had no suprapubic tenderness Extremities without peripheral cyanosis or edema no open sores on his feet or his legs. Objective Last Vital Signs Temp 37.1 C 06/25/22 16:48 Pulse 91 H 06/25/22 16:48 Resp 20 06/25/22 16:48 BP 90/66 L 06/25/22 16:48 Pulse Ox 93 06/25/22 16:48 Laboratory Results - last 24 hr 06/25/22 06/25/22 06/25/22 05:55 05:55 05:55 WBC 8.16 RBC 5.81 H Hgb 15.5 D Hct 49.7 MCV 86 MCH 26.7 L MCHC 31.2 L RDW 17.3 H Plt Count 374 MPV 10.1 Immature Gran % Neutrophils % Lymphocytes % Monocytes % Eosinophils % Basophils % Nucleated RBC % Absolute Neutrophils Absolute Lymphocytes Absolute Monocytes Absolute Eosinophils Absolute Basophils VBG Lactate Sodium 135 L Potassium 4.4 Chloride 101 Carbon Dioxide 24.1 Anion Gap 9.9 BUN 27 H Creatinine 1.6 H Est GFR (CKD-EPI 2020) 46.64 Glucose 78 Calcium 9.4 Total Bilirubin AST ALT Alkaline Phosphatase Total Protein Albumin Procalcitonin 0.3 Urine Color Urine Clarity Urine pH Ur Specific [place] Urine Protein Urine Ketones Urine Blood Urine Nitrite Urine Bilirubin Urine Urobilinogen Ur Leukocyte Esterase Urine RBC Urine WBC Ur Epithelial Cells Urine Crystals Urine Bacteria Urine Mucus Ur Culture Indicated? Urine Glucose 06/25/22 06/25/22 06/25/22 14:33 16:42 16:42 WBC RBC Hgb Hct MCV MCH MCHC RDW Plt Count MPV Immature Gran % Neutrophils % Lymphocytes % Monocytes % Eosinophils % Basophils % Nucleated RBC % Absolute Neutrophils Absolute Lymphocytes Absolute Monocytes Absolute Eosinophils Absolute Basophils VBG Lactate 1.8 H Sodium 134 L Potassium 4.4 Chloride 101 Carbon Dioxide 23.7 Anion Gap 9.3 BUN 29 H Creatinine 1.7 H Est GFR (CKD-EPI 2020) 43.37 Glucose 120 H Calcium 8.6 Total Bilirubin 0.4 AST 14 L ALT 17 Alkaline Phosphatase 159 H Total Protein 7.2 Albumin 2.5 L Procalcitonin Urine Color Yellow Urine Clarity Cloudy Urine pH 6.0 Ur Specific [place] 1.015 Urine Protein 100 H Urine Ketones Negative Urine Blood Moderate H Urine Nitrite Positive H Urine Bilirubin Negative Urine Urobilinogen 0.2 Ur Leukocyte Esterase Large H Urine RBC Not Applicable Urine WBC >50 H Ur Epithelial Cells Not Applicable Urine Crystals Not Applicable Urine Bacteria Not Applicable Urine Mucus Not Applicable Ur Culture Indicated? Yes Urine Glucose Negative 06/25/22 16:42 WBC 13.23 H RBC 3.35 L Hgb 9.2 L D Hct 28.1 L MCV 84 MCH 27.5 MCHC 32.7 RDW 16.8 H Plt Count 534 H MPV 9.7 Immature Gran % 0.4 Neutrophils % 88.1 Lymphocytes % 2.7 Monocytes % 8.5 Eosinophils % 0.1 Basophils % 0.2 Nucleated RBC % 0.0 Absolute Neutrophils 11.66 H Absolute Lymphocytes 0.36 L Absolute Monocytes 1.12 H Absolute Eosinophils 0.01 Absolute Basophils 0.03 VBG Lactate Sodium Potassium Chloride Carbon Dioxide Anion Gap BUN Creatinine Est GFR (CKD-EPI 2020) Glucose Calcium Total Bilirubin AST ALT Alkaline Phosphatase Total Protein Albumin Procalcitonin Urine Color Urine Clarity Urine pH Ur Specific [place] Urine Protein Urine Ketones Urine Blood Urine Nitrite Urine Bilirubin Urine Urobilinogen Ur Leukocyte Esterase Urine RBC Urine WBC Ur Epithelial Cells Urine Crystals Urine Bacteria Urine Mucus Ur Culture Indicated? Urine Glucose Time Spent with Patient Time Spent with Patient: 35-49 minutes Time was spent: preparing to see the patient(eg.review tests), obtaining and/or reviewing separately otained hiistory, ordering medications,tests, procedures, referring, communicating with other health auto care center manager, indepentently interpreting results, counseling the patient and care coordination
[2022-06-25] MEDS: VANCOMYCIN 500 MG in Normal Saline 100 ML 100 MG IVPB (18:18)
--- NOTE | 2022-06-25 18:25 | NUR.NOTE ---
Nursing Note: pt transferred to ICU by myself and nursing supervisors. Bedside report given.
[2022-06-25] MEDS: Lactated Ringers 1,000 ML 1000 ML IV (18:43)
[2022-06-25] MEDS: Heparin 5,000 UNITS/ML VIAL 5000 UNITS SC (18:56)
[2022-06-25 19:10] LABS: Lactate 2.3 mmol/L (0.6-1.4)
[2022-06-25] MEDS: Docusate Sodium 100 MG CAP PO (21:45)
[2022-06-25] MEDS: Mirtazapine 15 MG TAB 7.5 MG PO (21:45)
[2022-06-25] MEDS: Senna TAB 1 TAB PO (21:45)
[2022-06-25] MEDS: Lactated Ringers 250 ML IV (21:50)
[2022-06-25] MEDS: Lactated Ringers 1,000 ML 150 ML IV (22:50)
[2022-06-26] VITALS (143 sets, daily range): BP systolic 76–112; BP diastolic 45–64; PULSE 71–114; RESP 12–33; TEMP 36.4–38.6; O2SAT 85–99
--- NOTE | 2022-06-26 | DI.US_ITS ---
Exam(s) US RENAL EXAM: US RENAL CLINICAL HISTORY: Urosepsis, solitary kidney. TECHNIQUE: Ward scale, color and spectral Doppler were used. COMPARISON: CT CT ABDOMEN PELVIS W from 02/28/[address] CHEST PE CTA from 06/23/2022 FINDINGS: Renal size in cm: Right: 12.9. Left: Patient has had a prior left nephrectomy.. Echogenicity: Normal. Hydronephrosis: The patient has a history of asymmetric dilatation of the upper right renal collectin g system. This appears improved compared to the CT scan from 02/28/2022. At that time on the CT scan there was thickening of the upper pole collecting system wall. The findings were suspicious for rec urrent renal cancer. Please correlate with patient's clinical history. Cyst or mass: No. Nephrolithiasis: No. Other findings: There does appear to be a very tiny amount of perinephric fluid. Bladder:There is debris seen layering in the dependent portion of the urinary bladder. Ureteral jets: Right: Visualized and unremarkable. Prevoid vol:436 cc Postvoid vol:269 cc Prostate: 12 cc Renal color flow: Symmetric and within normal limits. IMPRESSION: 1. Status post left nephrectomy. 2. Unchanged dilatation of the upper pole right renal collecting system. 3. Layering soft tissue in the urinary bladder. This may represent hemorrhagic/infectious material. A neoplasm should also be considered. 4. Large postvoid urinary bladder volume. DATA REPOSITORY:
[2022-06-26] MEDS: Lactated Ringers 500 ML IV (02:00)
[2022-06-26] MEDS: Heparin 5,000 UNITS/ML VIAL 5000 UNITS SC ×3 (02:14→17:16)
[2022-06-26] MEDS: VANCOMYCIN 500 MG in Normal Saline 100 ML 100 MG IVPB (04:43)
[2022-06-26 05:41] LABS: HCT 26.3 % (40.0-50.0); HGB 8.3 g/dL (13.5-17.5); Lactate 1.4 mmol/L (0.6-1.4); MCH 27.3 pg (27.0-33.0); MCHC 31.6 % (32.0-36.0); MCV 87 fL (80-95); MPV 9.8 fL (8.0-11.0); Platelet Count 461 10^3/uL (130-400); RBC 3.04 10^6/uL (4.36-5.78); RDW-SD 53.6 fL; WBC 12.87 10^3/uL (4.4-10.8)
[2022-06-26 05:57] LABS: Anion Gap 7.2 mmol/L (3-11); BUN 26 mg/dL (7-18); CO2 25.8 mmol/L (21.0-32.0); CREATININE 1.8 mg/dL (0.70-1.30); Calcium 8.4 mg/dL (8.5-10.1); Chloride 101 mmol/L (98-107); Estimated GFR 40.49 (mL/min/1.73m2); Glucose 106 mg/dL (74-106); Potassium 4.7 mmol/L (3.5-5.1); Sodium 134 mmol/L (136-145)
[2022-06-26] MEDS: Norepinephrine in D5W 8 MG/250 ML BAG 4.5 MG IV (06:20)
[2022-06-26] MEDS: Lactated Ringers 1,000 ML 150 ML IV ×3 (06:29→21:20)
[2022-06-26] MEDS: Budesonide/Formoterol 80/4.5 6.9 GM 60 PUFF INH IH ×2 (08:28→21:24)
[2022-06-26] MEDS: Tiotropium Bromide-Respimat 10 PUFF INH 2 PUFF IH (08:28)
--- NOTE | 2022-06-26 08:44 | CMPROGNOTE_ITS ---
- If Service Date Differs Date of service: 06/26/22 Time of Service: 08:44 Care Management Progress Note S/O: Kelvin transferred to the ICU yesterday after becoming acutely septic. He is being closely followed by Surgical with Hospital Medicine following. Per Palliative, discharge plan requires continued discussion. Kelvin may discharge to his son's home in [place], but may be able to to stay in [place] (if needed) if he goes to his in-laws home. Kelvin has considered staying in [place] for act [place]. CM will continue to follow. A: 67 year old male admitted to [facility] on 06/23/22 for Left Pneumothorax P: Anticipate, Kelvin will discharge to his sons home with [facility] RN,PT,OT,[employer] vs Hospice. Kelvin does not want to go to a SNF. Palliative is following. Discharge considerations to be determined and are dependent on his prognosis and goals of care.
--- NOTE | 2022-06-26 09:28 | NUR.NOTE ---
Vzhsky-tz-pss visits.Nursing Note:
[2022-06-26] MEDS: busPIRone 5 MG TAB PO ×3 (09:30→21:25)
[2022-06-26] MEDS: Citalopram 10 MG TAB PO (09:30)
[2022-06-26] MEDS: Dronabinol 2.5 MG CAP PO ×2 (09:30→17:09)
[2022-06-26] MEDS: Docusate Sodium 100 MG CAP PO ×2 (09:30→21:25)
[2022-06-26] MEDS: Multivitamin TAB 1 TAB PO (09:31)
[2022-06-26] MEDS: Tamsulosin 0.4 MG CAPCR PO (09:31)
[2022-06-26] MEDS: Protein Nutritional Supplement 16 GM 1 OUNCE PACKET PO (09:31)
--- NOTE | 2022-06-26 09:39 | W.PM.PROGNOT ---
Date of Service Date of service: 06/26/22 Time of Service: 09:39 Assessment and Plan Assessment and plan (1) Sepsis: Status: Acute Assessment and plan: Patient has sepsis likely from urinary tract source. We will check renal ultrasound as he has a solitary kidney. Continue vancomycin and Rocephin however if there is no evidence for gram-positive organisms in his urine I would stop the vancomycin. Continue IV fluid hydration with titration of norepinephrine. Currently on norepinephrine at 0.1 mcg/kg/min and is hemodynamically stable. Once he is stable off the norepinephrine drip he can be transferred to medical/surgical floor. For now he requires ICU management. Critical care time spent interviewing and examining the patient, reviewing studies, discussing case with patient's nurse and consulting physicians was 30 minutes (2) UTI (urinary tract infection): Status: Acute Assessment and plan: As above (3) Pneumothorax on left: Status: Acute Assessment and plan: Currently has a chest tube attached to wall suction. Surgery service is managing this condition. There is a chance that he will require surgical intervention to seal of the pneumothorax. Dr. Chua is now following along with surgery. She and I discussed patient's options including placement of a Heimlich valve the patient would just have to live with the pneumothorax but this would prevent development of tension pneumothorax. Other options would blood patch versus pleurodesis versus VATS. (4) Metastatic renal cell carcinoma to lung: Status: Acute (5) DNR (do not resuscitate): Status: Acute (6) DNI (do not intubate): Status: Acute (7) Depression: Status: Chronic Assessment and plan: I switch the patient from sertraline to citalopram per Dr. Roldan's recommendation. Continue Remeron at night along with Marinol to improve his appetite. He has. Oral morphine as needed for pain. Start BuSpar for anxiety although he may need as needed benzodiazepines. (8) Cachexia: Status: Acute Assessment and plan: Nutritional consult has been requested he has been placed on protein supplement shakes. His appetite has picked up this morning prior combination of treating his infection but also may be some benefit from Marinol. At home he was using marijuana edibles anyways. (9) COPD (chronic obstructive pulmonary disease): Status: Chronic Assessment and plan: Continue LAMA/ICS as well as beta agonist. Subjective Subjective Interval history since last seen: Kelvin has no acute complaints he denies dyspnea. He is currently off oxygen with good oxygen saturations currently at 97%. Denies any pain. Patient did require norepinephrine drip to be started last night to treat his hypotension. He continues to receive LR at 150 mL an hour Urine output last night was 1700 mL. Still denies any dysuria. Blood culture results are pending as well as urine culture. He remains on vancomycin and Rocephin. Urinalysis yesterday was very cysts fishes for UTI with moderate blood and positive nitrites and large amount leukocyte Estrace. Blood lactate level last night was elevated and peaked at 2.3 and is now down to 1.4 this morning. Procalcitonin was mildly elevated last night at 0.3. Patient seems to be responding well to his antibiotics and we will downgrade his antibiotics once we have an identification on his urine culture. Exam Narrative Exam Narrative: Kelvin is sitting up in bed reading the newspaper and watching TV he is in no acute distress. Neck is supple nontender no accessory respiratory muscle use Lungs are clear anteriorly posteriorly has some diminished breath sounds at the bases no rhonchi left lung base he has some coarse adventitious sounds from the chest tube Heart is regular rate and rhythm Abdomen is scaphoid soft and nontender Extremities without edema Objective Last Vital Signs Temp 38.1 C H 06/26/22 08:54 Pulse 79 06/26/22 08:54 Resp 19 06/26/22 08:54 BP 100/51 L 06/26/22 08:54 Pulse Ox 97 06/26/22 08:54 Laboratory Results - last 24 hr 06/25/22 06/25/22 06/25/22 05:55 14:33 16:42 WBC RBC Hgb Hct MCV MCH MCHC RDW Plt Count MPV Immature Gran % Neutrophils % Lymphocytes % Monocytes % Eosinophils % Basophils % Nucleated RBC % Absolute Neutrophils Absolute Lymphocytes Absolute Monocytes Absolute Eosinophils Absolute Basophils VBG Lactate 1.8 H Sodium Potassium Chloride Carbon Dioxide Anion Gap BUN Creatinine Est GFR (CKD-EPI 2020) Glucose Calcium Total Bilirubin AST ALT Alkaline Phosphatase Total Protein Albumin Procalcitonin 0.3 Urine Color Yellow Urine Clarity Cloudy Urine pH 6.0 Ur Specific [place] 1.015 Urine Protein 100 H Urine Ketones Negative Urine Blood Moderate H Urine Nitrite Positive H Urine Bilirubin Negative Urine Urobilinogen 0.2 Ur Leukocyte Esterase Large H Urine RBC Not Applicable Urine WBC >50 H Ur Epithelial Cells Not Applicable Urine Crystals Not Applicable Urine Bacteria Not Applicable Urine Mucus Not Applicable Ur Culture Indicated? Yes Urine Glucose Negative 06/25/22 06/25/22 06/25/22 16:42 16:42 19:00 WBC 13.23 H RBC 3.35 L Hgb 9.2 L D Hct 28.1 L MCV 84 MCH 27.5 MCHC 32.7 RDW 16.8 H Plt Count 534 H MPV 9.7 Immature Gran % 0.4 Neutrophils % 88.1 Lymphocytes % 2.7 Monocytes % 8.5 Eosinophils % 0.1 Basophils % 0.2 Nucleated RBC % 0.0 Absolute Neutrophils 11.66 H Absolute Lymphocytes 0.36 L Absolute Monocytes 1.12 H Absolute Eosinophils 0.01 Absolute Basophils 0.03 VBG Lactate 2.3 H* Sodium 134 L Potassium 4.4 Chloride 101 Carbon Dioxide 23.7 Anion Gap 9.3 BUN 29 H Creatinine 1.7 H Est GFR (CKD-EPI 2020) 43.37 Glucose 120 H Calcium 8.6 Total Bilirubin 0.4 AST 14 L ALT 17 Alkaline Phosphatase 159 H Total Protein 7.2 Albumin 2.5 L Procalcitonin Urine Color Urine Clarity Urine pH Ur Specific [place] Urine Protein Urine Ketones Urine Blood Urine Nitrite Urine Bilirubin Urine Urobilinogen Ur Leukocyte Esterase Urine RBC Urine WBC Ur Epithelial Cells Urine Crystals Urine Bacteria Urine Mucus Ur Culture Indicated? Urine Glucose 06/25/22 06/26/22 06/26/22 22:00 05:27 05:27 WBC RBC Hgb Hct MCV MCH MCHC RDW Plt Count MPV Immature Gran % Neutrophils % Lymphocytes % Monocytes % Eosinophils % Basophils % Nucleated RBC % Absolute Neutrophils Absolute Lymphocytes Absolute Monocytes Absolute Eosinophils Absolute Basophils VBG Lactate 2.0 H 1.4 Sodium 134 L Potassium 4.7 Chloride 101 Carbon Dioxide 25.8 Anion Gap 7.2 BUN 26 H Creatinine 1.8 H Est GFR (CKD-EPI 2020) 40.49 Glucose 106 Calcium 8.4 L Total Bilirubin AST ALT Alkaline Phosphatase Total Protein Albumin Procalcitonin Urine Color Urine Clarity Urine pH Ur Specific [place] Urine Protein Urine Ketones Urine Blood Urine Nitrite Urine Bilirubin Urine Urobilinogen Ur Leukocyte Esterase Urine RBC Urine WBC Ur Epithelial Cells Urine Crystals Urine Bacteria Urine Mucus Ur Culture Indicated? Urine Glucose 06/26/22 05:27 WBC 12.87 H RBC 3.04 L Hgb 8.3 L Hct 26.3 L MCV 87 MCH 27.3 MCHC 31.6 L RDW 17.0 H Plt Count 461 H MPV 9.8 Immature Gran % Neutrophils % Lymphocytes % Monocytes % Eosinophils % Basophils % Nucleated RBC % Absolute Neutrophils Absolute Lymphocytes Absolute Monocytes Absolute Eosinophils Absolute Basophils VBG Lactate Sodium Potassium Chloride Carbon Dioxide Anion Gap BUN Creatinine Est GFR (CKD-EPI 2020) Glucose Calcium Total Bilirubin AST ALT Alkaline Phosphatase Total Protein Albumin Procalcitonin Urine Color Urine Clarity Urine pH Ur Specific [place] Urine Protein Urine Ketones Urine Blood Urine Nitrite Urine Bilirubin Urine Urobilinogen Ur Leukocyte Esterase Urine RBC Urine WBC Ur Epithelial Cells Urine Crystals Urine Bacteria Urine Mucus Ur Culture Indicated? Urine Glucose Time Spent with Patient Time Spent with Patient: 25-34 minutes Time was spent: preparing to see the patient(eg.review tests), obtaining and/or reviewing separately otained hiistory, ordering medications,tests, procedures, referring, communicating with other health respiratory care program director, indepentently interpreting results, counseling the patient and care coordination
[2022-06-26 10:31] LABS: Lab Add On Test DONE
[2022-06-26 10:52] LABS: Magnesium 1.7 mg/dL (1.8-2.4)
[2022-06-26] MEDS: cefTRIAXone 2 GM/50 ML BAG IVPB (11:19)
--- NOTE | 2022-06-26 12:19 | NUR.NOTE ---
Norepinephrine is paused. Dr. Kuhn reluctant to place central line. Perhaps patient will not need to remain on Norepinephrine drip. Will continue to monitor patient off drip which begins now.Nursing Note:
--- NOTE | 2022-06-26 13:16 | NUR.NOTE ---
Renal ultrasound commences in patient room.Nursing Note:
--- NOTE | 2022-06-26 13:37 | PGE_ITS ---
Date of Service Date of service: 06/26/22 Time of Service: 13:37 Assessment and Plan Assessment and plan (1) Sepsis: Status: Acute Assessment and plan: At this point, his sepsis seems to be most likely caused by urinary tract infection. We are continuing broad-spectrum antibiotics for now, and we will have to follow-up on the urinary culture. (2) Pneumothorax on left: Status: Acute Assessment and plan: I will move him back over to waterseal today, again, trying to decrease the pressure gradient across the visceral airleak. We will check a chest x-ray tomorrow. If the lung looks better, then I be inclined to just leave the chest tube alone, and give it more time to allow the lung to adhere to the chest wall. If he still has a dramatic air leak, or worrisome pneumothorax on his chest x- ray, and I would give strong consideration to a therapeutic blood patch to see if we can seal the air leak. Subjective Subjective Interval history since last seen: He feels more himself today. He is a little more alert, and has more of an appetite. He denies any pain. He says his shortness of breath needs to improve. Exam Const General: cooperative and comfortable Nutritional Appearance: malnourished Orientation: alert, awake and oriented x3 Resp Effort & Inspection: normal respiratory effort, able to speak in complete sentences, no respiratory distress and no tracheal deviation Auscultation: diminished lung sounds on the left and other Other: Pleur-evac has an active air leak on suction. Forced air leak on waterseal GI Inspection: non-distended Palpation: soft, no guarding and nontender Objective Last Vital Signs Temp 101.3 F H 06/26/22 10:55 Pulse 75 06/26/22 10:55 Resp 24 06/26/22 10:55 BP 91/49 L 06/26/22 10:55 Pulse Ox 94 06/26/22 10:55 Laboratory Results - last 24 hr 06/25/22 06/25/22 06/25/22 14:33 16:42 16:42 WBC RBC Hgb Hct MCV MCH MCHC RDW Plt Count MPV Immature Gran % Neutrophils % Lymphocytes % Monocytes % Eosinophils % Basophils % Nucleated RBC % Absolute Neutrophils Absolute Lymphocytes Absolute Monocytes Absolute Eosinophils Absolute Basophils VBG Lactate 1.8 H Sodium 134 L Potassium 4.4 Chloride 101 Carbon Dioxide 23.7 Anion Gap 9.3 BUN 29 H Creatinine 1.7 H Est GFR (CKD-EPI 2020) 43.37 Glucose 120 H Calcium 8.6 Phosphorus Magnesium Total Bilirubin 0.4 AST 14 L ALT 17 Alkaline Phosphatase 159 H Total Protein 7.2 Albumin 2.5 L Urine Color Yellow Urine Clarity Cloudy Urine pH 6.0 Ur Specific [place] 1.015 Urine Protein 100 H Urine Ketones Negative Urine Blood Moderate H Urine Nitrite Positive H Urine Bilirubin Negative Urine Urobilinogen 0.2 Ur Leukocyte Esterase Large H Urine RBC Not Applicable Urine WBC >50 H Ur Epithelial Cells Not Applicable Urine Crystals Not Applicable Urine Bacteria Not Applicable Urine Mucus Not Applicable Ur Culture Indicated? Yes Urine Glucose Negative Add-On Test Request 06/25/22 06/25/22 06/25/22 16:42 19:00 22:00 WBC 13.23 H RBC 3.35 L Hgb 9.2 L D Hct 28.1 L MCV 84 MCH 27.5 MCHC 32.7 RDW 16.8 H Plt Count 534 H MPV 9.7 Immature Gran % 0.4 Neutrophils % 88.1 Lymphocytes % 2.7 Monocytes % 8.5 Eosinophils % 0.1 Basophils % 0.2 Nucleated RBC % 0.0 Absolute Neutrophils 11.66 H Absolute Lymphocytes 0.36 L Absolute Monocytes 1.12 H Absolute Eosinophils 0.01 Absolute Basophils 0.03 VBG Lactate 2.3 H* 2.0 H Sodium Potassium Chloride Carbon Dioxide Anion Gap BUN Creatinine Est GFR (CKD-EPI 2020) Glucose Calcium Phosphorus Magnesium Total Bilirubin AST ALT Alkaline Phosphatase Total Protein Albumin Urine Color Urine Clarity Urine pH Ur Specific [place] Urine Protein Urine Ketones Urine Blood Urine Nitrite Urine Bilirubin Urine Urobilinogen Ur Leukocyte Esterase Urine RBC Urine WBC Ur Epithelial Cells Urine Crystals Urine Bacteria Urine Mucus Ur Culture Indicated? Urine Glucose Add-On Test Request 06/26/22 06/26/22 06/26/22 05:27 05:27 05:27 WBC 12.87 H RBC 3.04 L Hgb 8.3 L Hct 26.3 L MCV 87 MCH 27.3 MCHC 31.6 L RDW 17.0 H Plt Count 461 H MPV 9.8 Immature Gran % Neutrophils % Lymphocytes % Monocytes % Eosinophils % Basophils % Nucleated RBC % Absolute Neutrophils Absolute Lymphocytes Absolute Monocytes Absolute Eosinophils Absolute Basophils VBG Lactate 1.4 Sodium 134 L Potassium 4.7 Chloride 101 Carbon Dioxide 25.8 Anion Gap 7.2 BUN 26 H Creatinine 1.8 H Est GFR (CKD-EPI 2020) 40.49 Glucose 106 Calcium 8.4 L Phosphorus Magnesium Total Bilirubin AST ALT Alkaline Phosphatase Total Protein Albumin Urine Color Urine Clarity Urine pH Ur Specific [place] Urine Protein Urine Ketones Urine Blood Urine Nitrite Urine Bilirubin Urine Urobilinogen Ur Leukocyte Esterase Urine RBC Urine WBC Ur Epithelial Cells Urine Crystals Urine Bacteria Urine Mucus Ur Culture Indicated? Urine Glucose Add-On Test Request 06/26/22 06/26/22 05:27 05:27 WBC RBC Hgb Hct MCV MCH MCHC RDW Plt Count MPV Immature Gran % Neutrophils % Lymphocytes % Monocytes % Eosinophils % Basophils % Nucleated RBC % Absolute Neutrophils Absolute Lymphocytes Absolute Monocytes Absolute Eosinophils Absolute Basophils VBG Lactate Sodium Potassium Chloride Carbon Dioxide Anion Gap BUN Creatinine Est GFR (CKD-EPI 2020) Glucose Calcium Phosphorus 4.0 Magnesium 1.7 L Total Bilirubin AST ALT Alkaline Phosphatase Total Protein Albumin Urine Color Urine Clarity Urine pH Ur Specific [place] Urine Protein Urine Ketones Urine Blood Urine Nitrite Urine Bilirubin Urine Urobilinogen Ur Leukocyte Esterase Urine RBC Urine WBC Ur Epithelial Cells Urine Crystals Urine Bacteria Urine Mucus Ur Culture Indicated? Urine Glucose Add-On Test Request DONE Time Spent with Patient Time Spent with Patient: 35-49 minutes Time was spent: preparing to see the patient(eg.review tests), obtaining and/or reviewing separately otained hiistory, ordering medications,tests, procedures, referring, communicating with other health clinical care coordinator and counseling the patient
--- NOTE | 2022-06-26 13:55 | PCPN_ITS ---
Date of service: 06/26/22 Time of Service: 13:00 Assessment and Plan Assessment and plan (1) Sepsis: Status: Acute Assessment and plan: blood cultures pending continue Rocephin and vancomycin, consider d/c vanc pending cultures continue IVF, norepinephrine, w/goals of titration off norepi as tolerated improving (2) UTI (urinary tract infection): Status: Acute (3) Metastatic renal cell carcinoma to lung: Status: Acute Assessment and plan: previously f/b Dr. See w/[facility] [place] metastatic disease, hospice eligible on discharge (4) Fear associated with illness and body function: Status: Acute Assessment and plan: refusing out of bed transfers d/t fear of de-sats and dyspnea willing to attempt w/appropriate safety measures - RN preference for PT involvement for transfers/eval; recommend PT eval for safety eval w/transition out of bed recommend O2 in place for transfers, liquid morphine 5mg available for PRN w/transfers for air hunger/anxiety (5) Advanced care planning/counseling discussion: Status: Acute Assessment and plan: confirmed COLST and code status plan for discharge home on hospice, need for f/u on placement: son's vs inlaws - need to continue conversations regarding preferences for [facility], hospice, etc (6) Bladder cancer: (7) H/O left nephrectomy: Assessment and plan: US of R kidney today (8) Palliative care patient: Status: Acute Assessment and plan: PC to continue to follow through inpatient stay, f/u on Mon or next week continue to address discharge plan based on patient preferences (9) Depression: Status: Chronic Assessment and plan: recently started on new meds continue to monitor and address (10) Cachexia: Status: Acute Assessment and plan: appetite improved (11) Dyspnea: Status: Acute Assessment and plan: worse w/limited exertion, consider liquid morphine 5mg, O2, PRN (12) Discharge planning issues: Status: Acute Assessment and plan: need for f/u on location of discharge: son's in [place] vs in-laws in [place]? consider [place] [address] consult pending discharge location (13) DNI (do not intubate): Status: Acute (14) DNR (do not resuscitate): Status: Acute (15) At high risk for skin breakdown: Status: Acute Assessment and plan: encourage OOB to avoid skin break down, Kelvin is agreeable to OOB w/assistance, as above appetite improving, encourage high protein diet Subjective Subjective Interval history since last seen: Kelvin denies pain; states discomfort from lung procedure, but manageable. He is reluctant to get out of bed d/t fears of dyspnea/desaturations. he is willing to try to get out, but would like to have appropriate monitoring during these attempts. He is breathing fine at rest, w/minimal exertion he feels dsypnic w/air hunger He would like to have his lungs fixed as possible, w/plans for returning to his respiratory baseline. He would like to see what surgery and pulmonology say tomorrow. He is aware that he cannot return safely home, is considering going to his son David' in [place] on discharge. He is aware that his cancer is everywhere and there are no oncology treatments to be offered at this time. His last visit w/Dr. See did not include much bc they transferred him emergently to ED. He confirms he does want interventions, including pressors, IVF and abx, would consider surgery for fixing leak in lung. Confirms DNR/I, HCA David and Bob. Feels extremely supported by sons and their wives Felicia and Erlinda. Visit ended prematurely d/t beside US per REGIONAL DIRECTOR OF ADMISSIONS: he is refusing to get out of bed d/t fear of de-sats, appetite and fatigue improved, no pain. concerns w/skin breakdown w/BB status. continues w/norepinepherine has tolerated down titration, continues IVF; sats ranging 92- 93% at rest, dropping w/sleep and any movement, no O2 at this time. he has required no PRN morphine for pain, no witnessed dyspnic episodes. he does get scared w/desats. labs improving, UTI culture pending. per CM: potential plan for discharge to in-laws in [place] vs son's in [place]; has expressed interest in [place] [facility] as eligible. Exam Narrative Exam Narrative: lying in bed in ICU at time of visit Const General: cooperative, comfortable, no acute distress and frail appearing Nutritional Appearance: thin Orientation: alert, awake and oriented x3 HENMT Head: normocephalic and atraumatic Ears: hearing grossly normal bilaterally Resp Effort & Inspection: able to speak in complete sentences, no audible wheezes, no cough, labored and tachypneic Psych Appearance: grossly normal Speech and Movement: speech clear Mood: congruent mood Affect: normal affect and indifferent Attitude: cooperative Thought Process: loose association Insight: limited Judgment: limited Objective Last Vital Signs Temp 101.3 F H 06/26/22 10:55 Pulse 75 06/26/22 10:55 Resp 24 06/26/22 10:55 BP 91/49 L 06/26/22 10:55 Pulse Ox 92 06/26/22 13:37 Laboratory Results - last 24 hr 06/25/22 06/25/22 06/25/22 14:33 16:42 16:42 WBC RBC Hgb Hct MCV MCH MCHC RDW Plt Count MPV Immature Gran % Neutrophils % Lymphocytes % Monocytes % Eosinophils % Basophils % Nucleated RBC % Absolute Neutrophils Absolute Lymphocytes Absolute Monocytes Absolute Eosinophils Absolute Basophils VBG Lactate 1.8 H Sodium 134 L Potassium 4.4 Chloride 101 Carbon Dioxide 23.7 Anion Gap 9.3 BUN 29 H Creatinine 1.7 H Est GFR (CKD-EPI 2020) 43.37 Glucose 120 H Calcium 8.6 Phosphorus Magnesium Total Bilirubin 0.4 AST 14 L ALT 17 Alkaline Phosphatase 159 H Total Protein 7.2 Albumin 2.5 L Urine Color Yellow Urine Clarity Cloudy Urine pH 6.0 Ur Specific [place] 1.015 Urine Protein 100 H Urine Ketones Negative Urine Blood Moderate H Urine Nitrite Positive H Urine Bilirubin Negative Urine Urobilinogen 0.2 Ur Leukocyte Esterase Large H Urine RBC Not Applicable Urine WBC >50 H Ur Epithelial Cells Not Applicable Urine Crystals Not Applicable Urine Bacteria Not Applicable Urine Mucus Not Applicable Ur Culture Indicated? Yes Urine Glucose Negative Add-On Test Request 06/25/22 06/25/22 06/25/22 16:42 19:00 22:00 WBC 13.23 H RBC 3.35 L Hgb 9.2 L D Hct 28.1 L MCV 84 MCH 27.5 MCHC 32.7 RDW 16.8 H Plt Count 534 H MPV 9.7 Immature Gran % 0.4 Neutrophils % 88.1 Lymphocytes % 2.7 Monocytes % 8.5 Eosinophils % 0.1 Basophils % 0.2 Nucleated RBC % 0.0 Absolute Neutrophils 11.66 H Absolute Lymphocytes 0.36 L Absolute Monocytes 1.12 H Absolute Eosinophils 0.01 Absolute Basophils 0.03 VBG Lactate 2.3 H* 2.0 H Sodium Potassium Chloride Carbon Dioxide Anion Gap BUN Creatinine Est GFR (CKD-EPI 2020) Glucose Calcium Phosphorus Magnesium Total Bilirubin AST ALT Alkaline Phosphatase Total Protein Albumin Urine Color Urine Clarity Urine pH Ur Specific [place] Urine Protein Urine Ketones Urine Blood Urine Nitrite Urine Bilirubin Urine Urobilinogen Ur Leukocyte Esterase Urine RBC Urine WBC Ur Epithelial Cells Urine Crystals Urine Bacteria Urine Mucus Ur Culture Indicated? Urine Glucose Add-On Test Request 06/26/22 06/26/22 06/26/22 05:27 05:27 05:27 WBC 12.87 H RBC 3.04 L Hgb 8.3 L Hct 26.3 L MCV 87 MCH 27.3 MCHC 31.6 L RDW 17.0 H Plt Count 461 H MPV 9.8 Immature Gran % Neutrophils % Lymphocytes % Monocytes % Eosinophils % Basophils % Nucleated RBC % Absolute Neutrophils Absolute Lymphocytes Absolute Monocytes Absolute Eosinophils Absolute Basophils VBG Lactate 1.4 Sodium 134 L Potassium 4.7 Chloride 101 Carbon Dioxide 25.8 Anion Gap 7.2 BUN 26 H Creatinine 1.8 H Est GFR (CKD-EPI 2020) 40.49 Glucose 106 Calcium 8.4 L Phosphorus Magnesium Total Bilirubin AST ALT Alkaline Phosphatase Total Protein Albumin Urine Color Urine Clarity Urine pH Ur Specific [place] Urine Protein Urine Ketones Urine Blood Urine Nitrite Urine Bilirubin Urine Urobilinogen Ur Leukocyte Esterase Urine RBC Urine WBC Ur Epithelial Cells Urine Crystals Urine Bacteria Urine Mucus Ur Culture Indicated? Urine Glucose Add-On Test Request 06/26/22 06/26/22 05:27 05:27 WBC RBC Hgb Hct MCV MCH MCHC RDW Plt Count MPV Immature Gran % Neutrophils % Lymphocytes % Monocytes % Eosinophils % Basophils % Nucleated RBC % Absolute Neutrophils Absolute Lymphocytes Absolute Monocytes Absolute Eosinophils Absolute Basophils VBG Lactate Sodium Potassium Chloride Carbon Dioxide Anion Gap BUN Creatinine Est GFR (CKD-EPI 2020) Glucose Calcium Phosphorus 4.0 Magnesium 1.7 L Total Bilirubin AST ALT Alkaline Phosphatase Total Protein Albumin Urine Color Urine Clarity Urine pH Ur Specific [place] Urine Protein Urine Ketones Urine Blood Urine Nitrite Urine Bilirubin Urine Urobilinogen Ur Leukocyte Esterase Urine RBC Urine WBC Ur Epithelial Cells Urine Crystals Urine Bacteria Urine Mucus Ur Culture Indicated? Urine Glucose Add-On Test Request DONE
--- NOTE | 2022-06-26 17:39 | NUR.NOTE ---
Patient's daughter in to see patient.Nursing Note:
[2022-06-26] MEDS: Senna TAB 1 TAB PO (21:24)
[2022-06-26] MEDS: Acetaminophen 325 MG TAB 650 MG PO (21:24)
[2022-06-26] MEDS: Mirtazapine 15 MG TAB 7.5 MG PO (21:25)
[2022-06-27] VITALS (32 sets, daily range): BP systolic 81–114; BP diastolic 54–79; PULSE 55–89; RESP 12–20; TEMP 36.2–37.1; O2SAT 91–99
[2022-06-27] MEDS: Heparin 5,000 UNITS/ML VIAL 5000 UNITS SC ×2 (02:49→09:52)
[2022-06-27] MEDS: Lactated Ringers 1,000 ML 150 ML IV (04:05)
[2022-06-27 06:36] LABS: Abs Immature Grans 0.06 10^3/uL (0.0-0.06); Absolute Basophil Count 0.03 10^3/uL (0.0-0.2); Absolute Eosinophil Count 0.14 10^3/uL (0.0-0.7); Absolute Lymphocyte Count 0.61 10^3/uL (1.2-3.4); Absolute Monocyte Count 1.22 10^3/uL (0.1-0.8); Absolute Neutrophil Count 7.62 10^3/uL (1.2-6.7); Basophils % 0.3; Eosinophils % 1.4; HCT 27.8 % (40.0-50.0); HGB 8.5 g/dL (13.5-17.5); Immature Grans % 0.6; Lymphocytes % 6.3; MCH 26.8 pg (27.0-33.0); MCHC 30.6 % (32.0-36.0); MCV 88 fL (80-95); MPV 9.5 fL (8.0-11.0); Monocytes % 12.6; Neutrophils % 78.8; Platelet Count 524 10^3/uL (130-400); RBC 3.17 10^6/uL (4.36-5.78); RDW 17.2 % (11.8-14.1); WBC 9.68 10^3/uL (4.4-10.8)
[2022-06-27 06:57] LABS: ALT 9 U/L (16-63); AST 9 U/L (15-37); Alkaline Phosphatase 145 U/L (46-116); Anion Gap 6.4 mmol/L (3-11); BUN 25 mg/dL (7-18); Bilirubin, Total 0.2 mg/dL (0.2-1.0); C-Reactive Protein 17.63 mg/dL (0.0-0.3); CO2 26.6 mmol/L (21.0-32.0); CREATININE 1.7 mg/dL (0.70-1.30); Calcium 8.7 mg/dL (8.5-10.1); Chloride 106 mmol/L (98-107); Estimated GFR 43.37 (mL/min/1.73m2); Glucose 106 mg/dL (74-106); Potassium 3.9 mmol/L (3.5-5.1); Sodium 139 mmol/L (136-145); Total Protein 6.5 g/dL (6.4-8.2)
--- NOTE | 2022-06-27 07:00 | DI.RAD_ITS ---
Exam(s) XR PORTABLE CHEST AP EXAM: XR PORTABLE CHEST AP CLINICAL HISTORY: evaluate pneumothorax. TECHNIQUE: 2D digital imaging was performed. COMPARISON: CR XR PORTABLE CHEST AP from 06/25/2022 FINDINGS: Single AP portable view. Left chest tube again noted. The amount of pneumothorax appears slightly increased from 2 days ago. Heart size is upper normal. The mediastinum is not widened nor shifted.. No new infiltrates evident. No pleural effusions. IMPRESSION: Mild increased size left pneumothorax when compared to 2 days ago, despite presence of the chest tube . This pneumothorax is seen both laterally and inferiorly in the left hemithorax.No pleural effusion evident. No new infiltrates. DATA REPOSITORY: RADIATION DOSE DELIVERED:
[2022-06-27 07:14] LABS: Procalcitonin 1.9 ng/mL
[2022-06-27] MEDS: Budesonide/Formoterol 80/4.5 6.9 GM 60 PUFF INH IH ×2 (07:42→19:36)
[2022-06-27] MEDS: Tiotropium Bromide-Respimat 10 PUFF INH 2 PUFF IH (07:42)
[2022-06-27] MEDS: Multivitamin TAB 1 TAB PO (07:42)
[2022-06-27] MEDS: Tamsulosin 0.4 MG CAPCR PO (07:43)
[2022-06-27] MEDS: Docusate Sodium 100 MG CAP PO (07:43)
[2022-06-27] MEDS: Dronabinol 2.5 MG CAP PO ×2 (07:43→16:14)
[2022-06-27] MEDS: busPIRone 5 MG TAB PO ×2 (07:44→19:35)
[2022-06-27] MEDS: Citalopram 10 MG TAB PO (07:44)
--- NOTE | 2022-06-27 08:14 | DI.VRAD_ITS ---
PROCEDURE INFORMATION: Exam: XR Chest Exam date and time: 06/27/2022 7:15 AM Age: 67 years old Clinical indication: Condition or disease; Other: Eval pneumo; Prior surgery TECHNIQUE: Imaging protocol: Radiologic exam of the chest. Views: 1 view. COMPARISON: CR XR PORTABLE CHEST AP 06/25/2022 1:55 PM FINDINGS: Tubes, catheters and devices: A pigtail chest tube is again identified with its tip projecting over the posterior left 7th rib, not significantly changed in position. Lungs: The lungs are hyperinflated. Bullae are again noted at the left lung base. There is hazy airspace opacity at the right lung base which has increased in the interim. There is no overt pulmonary edema. Pleural spaces: There is a persistent small, approximately 15% left-sided pneumothorax, mildly increased in size since 06/25/2022. No pleural effusions are seen. Biapical pleuroparenchymal scarring is unchanged. Heart/Mediastinum: Heart size and cardiomediastinal contours are normal. Bones/joints: Unremarkable. Soft tissues: Small amount of soft tissue emphysema in the left upper chest wall. IMPRESSION: 1. Persistent small left apical pneumothorax, mildly increased in size since 06/25/2022, with the left chest tube not significantly changed in position. 2. Mild increase in right basilar airspace disease since 06/25/2022. Dictated and Authenticated by: Odalys Nuñez MD. Ordering:WENDI Mckeon MD
--- NOTE | 2022-06-27 09:16 | W.PM.PROGNOT ---
Date of Service Date of service: 06/27/22 Time of Service: 09:17 Assessment and Plan Assessment and plan (1) Pneumothorax on left: Status: Acute Assessment and plan: HD stable. Lung is mostly up on waterseal. Still airleak, but controlled with pig-tail drain. Patient can DC with the tube and H-valve at anytime. Goals of care, placement and medical management per hospital team. Surgery will follow for the chest tube. D/w on-call Hospitalist this morning. Subjective Subjective Interval history since last seen: No events or clinical changes. Patient discussing palliative options with medical team. No SOB or chest pain except at catheter site. Exam Narrative Exam Narrative: Gen: nontoxic and interactive Psych: Appropriate mood/afffect and good insight and understanding chest: tube site CDI, no crepitus. Tube intact. PleurEvac - + airleak on waterseal Objective Last Vital Signs Temp 97.2 F L 06/27/22 08:11 Pulse 73 06/27/22 08:11 Resp 16 06/27/22 08:11 BP 108/65 06/27/22 08:11 Pulse Ox 97 06/27/22 08:11 Laboratory Results - last 24 hr 06/26/22 06/26/22 06/27/22 05:27 05:27 05:35 WBC RBC Hgb Hct MCV MCH MCHC RDW Plt Count MPV Immature Gran % Neutrophils % Lymphocytes % Monocytes % Eosinophils % Basophils % Nucleated RBC % Absolute Neutrophils Absolute Lymphocytes Absolute Monocytes Absolute Eosinophils Absolute Basophils Sodium Cancelled Potassium Cancelled Chloride Cancelled Carbon Dioxide Cancelled Anion Gap Cancelled BUN Cancelled Creatinine Cancelled Est GFR (CKD-EPI 2020) Cancelled Glucose Cancelled Calcium Cancelled Phosphorus 4.0 Magnesium 1.7 L Total Bilirubin AST ALT Alkaline Phosphatase C-Reactive Protein Total Protein Albumin Procalcitonin Add-On Test Request DONE 06/27/22 06/27/22 06/27/22 06:30 06:30 06:30 WBC 9.68 RBC 3.17 L Hgb 8.5 L Hct 27.8 L MCV 88 MCH 26.8 L MCHC 30.6 L RDW 17.2 H Plt Count 524 H MPV 9.5 Immature Gran % 0.6 Neutrophils % 78.8 Lymphocytes % 6.3 Monocytes % 12.6 Eosinophils % 1.4 Basophils % 0.3 Nucleated RBC % 0.0 Absolute Neutrophils 7.62 H Absolute Lymphocytes 0.61 L Absolute Monocytes 1.22 H Absolute Eosinophils 0.14 Absolute Basophils 0.03 Sodium 139 Potassium 3.9 Chloride 106 Carbon Dioxide 26.6 Anion Gap 6.4 BUN 25 H Creatinine 1.7 H Est GFR (CKD-EPI 2020) 43.37 Glucose 106 Calcium 8.7 Phosphorus Magnesium Total Bilirubin 0.2 AST 9 L ALT 9 L Alkaline Phosphatase 145 H C-Reactive Protein 17.63 H Total Protein 6.5 Albumin 2.0 L Procalcitonin 1.9 Add-On Test Request Time Spent with Patient Time Spent with Patient: <25 minutes Time was spent: referring, communicating with other health sub acute care nurse and counseling the patient
--- NOTE | 2022-06-27 10:52 | IN_ITS ---
Date of service: 06/27/22 Time of Service: 10:25 PT Notes Visit Reasons: Left Side Pneumothorax Inpatient Physical Therapy Evaluation Date: June 27, 2022 Referring Doctor: Familia Ramirez PT Orders: PT CONSULT: Precautions: Standard, Falls Patient Profile/Admitting Diagnosis: Kelvin is a 67-year-old male with a past medical history of lung emphysema, chronic stable left-sided pneumothorax, who currently has stage IV metastatic bladder and renal cancer, which is being treated at the [facility] [place] [place], who presented to ED for evaluation of shortness of breath. PMHX: (Updated 06/23/22 @ 20:13 by Reji Romero MD) Bladder cancer Renal cancer Surgical History (Updated 06/23/22 @ 20:13 by Reji Romero MD) H/O left nephrectomy Social History/Home Situation:Kelvin lives alone in [place]. He has 2 adult children, a son David from [place] and a son Bob from [place]. Kelvin is independent at baseline and drives. Upon discharge from the hospital will be going to live with his son in [place]. Current Functional Limitations: Decreased mobility, functional transfers and SOB Subjective: Kelvin is agreeable to PT consult this morning. Would like to get up and sit in recliner for has been in bed other than to sit bedside since admission. Objective: General Observation: IV access, chest tube, O2 as needed for transfers/gait Mental Status: Alert and oriented x3 Pain: Declines pain other than stiffness from being in bed ROM: Right Upper Extremity: Demonstrates WNL AROM R UE with end range stiffness Left Upper Extremity: Demonstrates WNL AROM L UE with end range stiffness Right Lower Extremity: Demonstrates WNL AROM R LE Left Lower Extremity: Demonstrates WNL AROM L LE Strength: Right Upper Extremity: Good functional strength R UE Left Upper Extremity: Good functional strength L UE Right Lower Extremity: Good functional strength R LE Left Lower Extremity: Good functional strength L LE Bed Mobility/Transfers: Supine-Sit: HOB elevated I Sit-Stand: CGA Stand-Sit: CGA with cueing for proper hand placement Bed-chair: CGA with FWW Gait: FWW, 15 ft in room, FWB, CGA Balance: Static Sitting: Normal Dynamic Sitting: Good Static Standing: Good Dynamic Standing: Fair Special Tests: Mobility Limitations Standardized Measure [facility]-PAC 6 clicks Basic Mobility Inpatient Short Form: Raw Score: 21 CMS Score: 29% Informed Consent/Education: Patient instructed in purpose of PT consult and plan of care. Assessment: Patient is a 67 year old male referred to physical therapy services with the diagnosis of left-sided pneumothorax. Patient presents with clinical signs and symptoms consistent with diagnosis, as demonstrated by the following impairment level findings: impaired motor function, with decreased tolerance with physical exertion such as gait and transfers. Impairments are contributing to the following functional limitations: decreased activity tolerance, decreased functional mobility, limited ability with transfers, SOB with exertion Patient is assessed as a Moderate 91850 complexity based on the following: History: As above Examination: As Above Presentation: Evolving Decision Making: Moderate Goals: Goals X1 week 1. Supine-Sit Independent 2. Sit-Supine Independent 3. Sit-Stand Independent 4. Stand-Sit Independent 5. Bed-Chair Supervision FWW 6. Chair-Bed Supervsion FWW 7. Gait FWW 50 ft, Supervision Plan of Care/Treatment Plan: 1-2x/day, 7 days/week x 1 week. Plan of care has been reviewed with the CLINICAL REHAB SPECIALIST providing the service under Physical Therapy direction. Initiate Physical Therapy intervention for strengthening, bed mobility, transfers, gait, stairs, balance training, use of assistive device. DISCHARGE RECOMMENDATIONS:Home with son in [place], [place] with Hospice services upon MD discharge TREATMENT CODE/TIME: 81394, IE, 30 minutes, 10:25 am [facility] Disclaimer: This note was created using [employer] voice recognition software. It was reviewed for major content. However, there may be multiple small discrepancies and errors due to the voice recognition aspects of the software.
[2022-06-27] MEDS: cefTRIAXone 2 GM/50 ML BAG IVPB (11:29)
--- NOTE | 2022-06-27 15:36 | W.PM.PROGNOT ---
Date of Service Date of service: 06/27/22 Time of Service: 15:36 Assessment and Plan Assessment and plan (1) Sepsis: Status: Acute Assessment and plan: Blood culture negative to date. Initially required norepi drip; now off. Cont ceftriaxone. (2) UTI (urinary tract infection): Status: Acute Assessment and plan: As above (3) Pneumothorax on left: Status: Acute Assessment and plan: Currently has a chest tube attached to wall suction. Surgery service is managing this condition. CXR today shows 15% pneumothorax. Chest tube with air leak. Dr. Chua is now following along with surgery. Options including placement of a Heimlich valve the patient would just have to live with the pneumothorax but this would prevent development of tension pneumothorax. Other options would blood patch versus pleurodesis versus VATS. However, pt (4) Metastatic renal cell carcinoma to lung: Status: Acute (5) DNR (do not resuscitate): Status: Acute (6) DNI (do not intubate): Status: Acute (7) Depression: Status: Chronic Assessment and plan: Has been switched from sertraline to citalopram per Dr. Roldan's recommendation. Continue Remeron at night along with Marinol to improve his appetite. Oral morphine as needed for pain. Start BuSpar for anxiety and will continue prn lorazepam. (8) Cachexia: Status: Acute Assessment and plan: Nutritional consult has been requested he has been placed on protein supplement shakes. Cont. Marinol. At home he was using marijuana edibles anyways. (9) COPD (chronic obstructive pulmonary disease): Status: Chronic Assessment and plan: Continue LAMA/ICS as well as beta agonist. (10) Discharge planning issues: Status: Acute Assessment and plan: Planning to go to his [facility] under hospice care. Will need to have care management involved. Will need to have equipment ordered. Subjective Subjective Patient reports: no new complaints, feels better, shortness of breath (Intermittent) and afebrile; denies diarrhea, nausea or vomiting Interval history since last seen: States he didn't sleep well last PM; not because of pain. Broke out in sweat overnight; fever broke. Exam Narrative Exam Narrative: Pt is lying in bed. Sister and [id number] present. He appears nontoxic. Pleasant and conversant. Lungs: clear anteriorly. Normal work of breathing. Heart is rate is regular. No murmur Abdomen is scaphoid soft and nontender Extremities without edema Objective Last Vital Signs Temp 36.2 C L 06/27/22 08:11 Pulse 73 06/27/22 09:07 Resp 14 06/27/22 10:01 BP 99/64 L 06/27/22 09:07 Pulse Ox 97 06/27/22 10:01 Laboratory Results - last 24 hr 06/27/22 06/27/22 06/27/22 05:35 06:30 06:30 WBC 9.68 RBC 3.17 L Hgb 8.5 L Hct 27.8 L MCV 88 MCH 26.8 L MCHC 30.6 L RDW 17.2 H Plt Count 524 H MPV 9.5 Immature Gran % 0.6 Neutrophils % 78.8 Lymphocytes % 6.3 Monocytes % 12.6 Eosinophils % 1.4 Basophils % 0.3 Nucleated RBC % 0.0 Absolute Neutrophils 7.62 H Absolute Lymphocytes 0.61 L Absolute Monocytes 1.22 H Absolute Eosinophils 0.14 Absolute Basophils 0.03 Sodium Cancelled 139 Potassium Cancelled 3.9 Chloride Cancelled 106 Carbon Dioxide Cancelled 26.6 Anion Gap Cancelled 6.4 BUN Cancelled 25 H Creatinine Cancelled 1.7 H Est GFR (CKD-EPI 2020) Cancelled 43.37 Glucose Cancelled 106 Calcium Cancelled 8.7 Total Bilirubin 0.2 AST 9 L ALT 9 L Alkaline Phosphatase 145 H C-Reactive Protein 17.63 H Total Protein 6.5 Albumin 2.0 L Procalcitonin 06/27/22 06:30 WBC RBC Hgb Hct MCV MCH MCHC RDW Plt Count MPV Immature Gran % Neutrophils % Lymphocytes % Monocytes % Eosinophils % Basophils % Nucleated RBC % Absolute Neutrophils Absolute Lymphocytes Absolute Monocytes Absolute Eosinophils Absolute Basophils Sodium Potassium Chloride Carbon Dioxide Anion Gap BUN Creatinine Est GFR (CKD-EPI 2020) Glucose Calcium Total Bilirubin AST ALT Alkaline Phosphatase C-Reactive Protein Total Protein Albumin Procalcitonin 1.9 Time Spent with Patient Time Spent with Patient: <25 minutes Time was spent: referring, communicating with other health foster care therapist, indepentently interpreting results and counseling the patient
[2022-06-27] MEDS: Mirtazapine 15 MG TAB 7.5 MG PO (19:35)
--- NOTE | 2022-06-27 23:30 | NUR.NOTE ---
Addendum entered by Patricia Chandler RN 06/28/22 04:34: Upon receiving care of patient and with assessment of chest tube and chart reports I was unable to find the documentation of pigtail placement catheter length. Pigtail Dressing was performed and the tube is inserted into the skin on the left side of the chest. I was able to visualize a single thick black line at the skin site. Pigtail tube is sutured into place and connected to an closed drainage system. System is currently to water seal. Minimal fluctuation is visible in the system with intermittent air leak. Pigtail drainage system dressing with Petrolatum Gauze and 2 Drain sponges was placed and secured to patient skin at this time. Patient was offered pain medication prior to dressing change and it was declined. Patient with minimal spontaneous movement due to discomfort of chest tube. Original Note: Nursing Note:
[2022-06-28] VITALS (8 sets, daily range): BP systolic 88–104; BP diastolic 59–67; PULSE 63–79; RESP 14–22; TEMP 36.4–36.9; O2SAT 91–96
[2022-06-28] MEDS: Normal Saline Flush 10 ML SYR IVP (01:23)
[2022-06-28] MEDS: Heparin 5,000 UNITS/ML VIAL 5000 UNITS SC (01:24)
[2022-06-28] MEDS: Acetaminophen 325 MG TAB 650 MG PO (05:25)
[2022-06-28 05:51] LABS: HCT 27.3 % (40.0-50.0); HGB 8.4 g/dL (13.5-17.5); MCH 26.6 pg (27.0-33.0); MCHC 30.8 % (32.0-36.0); MCV 86 fL (80-95); Platelet Count 526 10^3/uL (130-400); RBC 3.16 10^6/uL (4.36-5.78); RDW 16.9 % (11.8-14.1); RDW-SD 53.5 fL; WBC 7.74 10^3/uL (4.4-10.8)
[2022-06-28 06:05] LABS: Anion Gap 6.7 mmol/L (3-11); BUN 20 mg/dL (7-18); CO2 27.3 mmol/L (21.0-32.0); CREATININE 1.6 mg/dL (0.70-1.30); Calcium 8.5 mg/dL (8.5-10.1); Chloride 106 mmol/L (98-107); Estimated GFR 46.64 (mL/min/1.73m2); Glucose 100 mg/dL (74-106); Potassium 3.9 mmol/L (3.5-5.1); Sodium 140 mmol/L (136-145)
[2022-06-28] MEDS: Dronabinol 2.5 MG CAP PO ×2 (07:39→16:19)
[2022-06-28] MEDS: Tamsulosin 0.4 MG CAPCR PO (07:39)
[2022-06-28] MEDS: Citalopram 10 MG TAB PO (07:39)
[2022-06-28] MEDS: Multivitamin TAB 1 TAB PO (07:39)
[2022-06-28] MEDS: busPIRone 5 MG TAB PO ×2 (07:39→21:26)
[2022-06-28] MEDS: Tiotropium Bromide-Respimat 10 PUFF INH 2 PUFF IH (07:40)
[2022-06-28] MEDS: Budesonide/Formoterol 80/4.5 6.9 GM 60 PUFF INH IH ×2 (07:40→20:10)
[2022-06-28] MEDS: Docusate Sodium 100 MG CAP PO ×2 (07:40→21:26)
--- NOTE | 2022-06-28 09:36 | PT.INNT ---
PT Notes Visit Reasons: Left Side Pneumothorax I am content right now. I would like to get up after lunch. Nurse was made aware.
--- NOTE | 2022-06-28 11:19 | W.PM.PROGNOT ---
Date of Service Date of service: 06/28/22 Time of Service: 11:19 Assessment and Plan Assessment and plan (1) Pneumothorax on left: Status: Acute Assessment and plan: 67 yo man w/ persistent PTX and airleak. Palliative/VISUAL MERCHANDISING SPECIALIST/Hospice. H- valve control of the leak. Ok to be DCed with the H-valve indefinitely. Chemical/bloodpatch pleurodesis an option which can be considered, but limited success rates with them. Could be discussed on outpatient basis if leak doesn't resolve with the valve over time. Subjective Subjective Interval history since last seen: No events, issues or changes. Exam Narrative Exam Narrative: Gen: Nontoxic and interactive Chest: No crepitus. Chest tube still with airleak on waterseal. Changed to ONLY H-valve. Objective Last Vital Signs Temp 97.5 F L 06/28/22 05:30 Pulse 70 06/28/22 07:50 Resp 22 06/28/22 05:30 BP 104/59 L 06/28/22 07:50 Pulse Ox 92 06/28/22 05:30 Laboratory Results - last 24 hr 06/28/22 06/28/22 05:10 05:10 WBC 7.74 RBC 3.16 L Hgb 8.4 L Hct 27.3 L MCV 86 MCH 26.6 L MCHC 30.8 L RDW 16.9 H Plt Count 526 H MPV 10.0 Sodium 140 Potassium 3.9 Chloride 106 Carbon Dioxide 27.3 Anion Gap 6.7 BUN 20 H Creatinine 1.6 H Est GFR (CKD-EPI 2020) 46.64 Glucose 100 Calcium 8.5 Time Spent with Patient Time Spent with Patient: <25 minutes Time was spent: referring, communicating with other health vision care associate and indepentently interpreting results
[2022-06-28] MEDS: cefTRIAXone 2 GM/50 ML BAG IVPB (12:53)
[2022-06-28] MEDS: Mirtazapine 15 MG TAB 7.5 MG PO (21:26)
[2022-06-28] MEDS: Senna TAB 1 TAB PO (21:26)
[2022-06-28] MEDS: Protein Nutritional Supplement 16 GM 1 OUNCE PACKET PO (21:26)
[2022-06-29] VITALS (12 sets, daily range): BP systolic 84–148; BP diastolic 45–70; PULSE 63–85; RESP 16–20; TEMP 36.4–36.8; O2SAT 89–98
[2022-06-29 06:24] LABS: HGB 8.5 g/dL (13.5-17.5); MCH 26.6 pg (27.0-33.0); MCHC 30.4 % (32.0-36.0); MCV 88 fL (80-95); MPV 9.4 fL (8.0-11.0); Platelet Count 544 10^3/uL (130-400); RBC 3.19 10^6/uL (4.36-5.78); RDW 16.7 % (11.8-14.1); RDW-SD 53.9 fL; WBC 6.48 10^3/uL (4.4-10.8)
[2022-06-29 06:46] LABS: Anion Gap 7.4 mmol/L (3-11); BUN 15 mg/dL (7-18); CO2 25.6 mmol/L (21.0-32.0); CREATININE 1.5 mg/dL (0.70-1.30); Calcium 8.4 mg/dL (8.5-10.1); Chloride 106 mmol/L (98-107); Glucose 94 mg/dL (74-106); Potassium 4.1 mmol/L (3.5-5.1); Sodium 139 mmol/L (136-145)
[2022-06-29] MEDS: Tiotropium Bromide-Respimat 10 PUFF INH 2 PUFF IH (07:40)
[2022-06-29] MEDS: Budesonide/Formoterol 80/4.5 6.9 GM 60 PUFF INH IH (07:40)
[2022-06-29] MEDS: Multivitamin TAB 1 TAB PO (08:26)
[2022-06-29] MEDS: busPIRone 5 MG TAB PO ×3 (08:26→19:57)
[2022-06-29] MEDS: Dronabinol 2.5 MG CAP PO ×2 (08:26→16:13)
[2022-06-29] MEDS: Citalopram 10 MG TAB PO (08:26)
[2022-06-29] MEDS: Docusate Sodium 100 MG CAP PO ×2 (08:26→19:58)
[2022-06-29] MEDS: Tamsulosin 0.4 MG CAPCR PO (08:27)
[2022-06-29] MEDS: cefTRIAXone 2 GM/50 ML BAG IVPB (12:00)
--- NOTE | 2022-06-29 12:08 | PT.INTREAT ---
Date of service: 06/29/22 Time of Service: 11:23 PT Notes Visit Reasons: Left Side Pneumothorax Inpatient Physical Therapy Treatment Note [facility] Date: 06/29/2022 PRECAUTIONS: Activity as tolerated SUBJECTIVE: Kelvin is pleasant and agreeable to participating in PT. He reports that he got himself up to his chair. He reports that it feels good to get up and walk around. OBJECTIVE: Patient cleared for independent transfers and ambulation within his room at this time. PAIN: No c/o pain BED MOBILITY/TRANSFERS Sit-supine: I with HOB flat Supine-sit: I with HOB flat Sit-stand: I Stand-sit: I GAIT Assistive Device: FWW Weight bearing: Full Assist: S Distance: 450' in a.m.; 500' in p.m. Deviation: Minimal SOB, standing rest x1 due to increased fatigue, 1L O2 via NC ASSESSMENT: Patient tolerated session well, with minimal complaint of SOB and increased fatigue. He was able to tolerate a progression in gait distance with FWW support on 1L O2. PLAN: Continue with general conditioning for improved activity tolerance. TREATMENT CODE/TIME: Session 1: 25 minutes; 53969 x2 (11:23) Session 2: 20 minutes; [id number] (14:28)
--- NOTE | 2022-06-29 12:15 | CMPROGNOTE_ITS ---
- If Service Date Differs Date of service: 06/29/22 Time of Service: 12:15 Care Management Progress Note S/O: Kelvin is sitting up in his chair, reading the news paper when CM met with him. He is planning on discharging to his son Reyes and TENZIN Duarte's home in [place], [place] with a plan to admit to hospice services on Wednesday. CM contacted [facility] to coordinate admission. Referral is faxed. Anticipated DME needs: Home O2, Walker, Shower chair, Commode and hospital bed. A: 67 year old male admitted to [facility] on 06/23/22 for Left Pneumothorax P: Anticipate, Kelvin will discharge to his sons home in [place], [place] with a plan to admit to hospice services through [facility]. Palliative is following. Per Kelvin, he will be driven by private vehicle. CM will follow.
--- NOTE | 2022-06-29 13:53 | PCPN_ITS ---
Date of service: 06/29/22 Time of Service: 11:30 Assessment and Plan Assessment and plan (1) Sepsis: Status: Acute Assessment and plan: blood culture neg last ceftriaxone dose today off norepi drip (2) Metastatic renal cell carcinoma to lung: Status: Acute Assessment and plan: hospice diagnosis spoke to [facility] hospice team, Diana; aware of DME needs:O2, walker, commode, shower chair, hospital bed plan for enrollment upon arrival at home on Wednesday (3) Pneumothorax on left: Status: Acute Assessment and plan: Chest tube w/Heimlich-valve, plan to keep in for now; recommend evaluation prior to discharge for consideration of removal Hospice question for pulmonology/surgery: Would it need to be surgically removed or removed in home and covered w/dressing? (4) Dyspnea: Status: Acute Assessment and plan: significant source of fear plan for discharge w/portable O2 tank from [employer] (available at [facility]), ordered via [facility], to coordinate w/[facility], CM and [facility] recommend PRN liquid morphine on hand for transportation home; PC provider to order liquid morphine 15mL via [facility] pharmacy to be picked up /Wed prior to discharge (5) Fear associated with illness and body function: Status: Acute Assessment and plan: as above plan for slow medicine, discharge delayed to Wed to give family time to set up home environment per patient's request reviewed need for PRN O2 and morphine PRN (6) Cachexia: Status: Acute Assessment and plan: appetite improved w/marinol (7) Depression: Status: Chronic Assessment and plan: continue meds improved today (8) Advanced care planning/counseling discussion: Status: Acute (9) At high risk for skin breakdown: Status: Acute Assessment and plan: OOB more compared to previous visits appetite improved (10) DNR (do not resuscitate): Status: Acute (11) DNI (do not intubate): Status: Acute (12) Discharge planning issues: Status: Acute Assessment and plan: plan for discharge home on [facility] of [facility] hospice on Wednesday07/01/22 Subjective Subjective Interval history since last seen: Kelvin reports he is feeling better today, feels best he has in a while; son Reyes at bedside, TENZIN Duarte joins via telephone he has been up a couple times OOB, using commode w/transfers w/use of walker. pain controlled w/newly started MS Contin 15mg qday, has not needed PRN morphine for pain or dyspnea CT remains in place, no issues, pain or concern; breathing controlled, continues w/PRN O2 continues w/fear w/dyspnea, losing breath; wants to ensure everything is in place versus rushing home, preference for slow, wants discharge done right vs fast; focus on quality plan for discharge home to [facility] in [place], [place] on hospice, goal for this week per CM: [facility] [place] [facility] [place] H[facility]ice referral ordered, pending acceptance DME needs: O2 (including portable), walker, commode, shower chair hospital bed Transportation home via private vehicle, Reyes, to home; they need to make some room at home for DME, feel they can be ready for delivery tomorrow, Key Exam Narrative Exam Narrative: lying in bed in ICU at time of visit Const General: cooperative, comfortable, no acute distress and frail appearing Nutritional Appearance: thin Orientation: alert, awake and oriented x3 HENMT Head: normocephalic and atraumatic Ears: hearing grossly normal bilaterally Resp Effort & Inspection: able to speak in complete sentences, no audible wheezes, no cough and labored Psych Appearance: grossly normal Speech and Movement: speech clear Mood: congruent mood Affect: normal affect Attitude: cooperative Objective Last Vital Signs Temp 97.5 F L 06/29/22 04:24 Pulse 70 06/29/22 07:50 Resp 18 06/29/22 04:24 BP 84/55 L 06/29/22 07:50 Pulse Ox 91 L 06/29/22 08:15 Laboratory Results - last 24 hr 06/29/22 06/29/22 06:10 06:10 WBC 6.48 RBC 3.19 L Hgb 8.5 L Hct 28.0 L MCV 88 MCH 26.6 L MCHC 30.4 L RDW 16.7 H Plt Count 544 H MPV 9.4 Sodium 139 Potassium 4.1 Chloride 106 Carbon Dioxide 25.6 Anion Gap 7.4 BUN 15 Creatinine 1.5 H Est GFR (CKD-EPI 2020) 50.40 Glucose 94 Calcium 8.4 L
--- NOTE | 2022-06-29 15:15 | NUR.NOTE ---
Pt transferred from ICU to room 218 on medsurg at 1440. Nursing Note:
--- NOTE | 2022-06-29 15:57 | PGE_ITS ---
Date of Service Date of service: 06/29/22 Time of Service: 15:57 Assessment and Plan Assessment and plan (1) Pneumothorax on left: Status: Acute Assessment and plan: With regards to the chest tube, the simplest treatment is to leave the tube in place with a Heimlich valve attached, and any type of simple collection device to manage the minimal amount of secretions. Since Kelvin has moved more towards prioritizing treatment of pain, anxiety, and dyspnea as he karol with , I think it is very reasonable to use this chest tube with a Heimlich valve as destination type therapy with no intent to remove. It should palliate his dyspnea, and help prevent tension pneumothorax. If he finds it too cumbersome, painful, or at all frustrating after discharge, we can explore alternative options as an outpatient if he would like. Otherwise, I think that using this tube to alleviate symptomatic pneumothorax is aligned with his stated goals of care. Subjective Subjective Interval history since last seen: Kelvin looks much better compared to last week. He tells me he was up walking around with minimal dyspnea. Exam Resp Effort & Inspection: normal respiratory effort, able to speak in complete sentences, no audible wheezes and no respiratory distress Auscultation: diminished lung sounds on the left Objective Last Vital Signs Temp 98.2 F 06/29/22 14:50 Pulse 85 06/29/22 14:50 Resp 20 06/29/22 14:50 BP 148/70 H 06/29/22 14:50 Pulse Ox 90 L 06/29/22 14:50 Laboratory Results - last 24 hr 06/29/22 06/29/22 06:10 06:10 WBC 6.48 RBC 3.19 L Hgb 8.5 L Hct 28.0 L MCV 88 MCH 26.6 L MCHC 30.4 L RDW 16.7 H Plt Count 544 H MPV 9.4 Sodium 139 Potassium 4.1 Chloride 106 Carbon Dioxide 25.6 Anion Gap 7.4 BUN 15 Creatinine 1.5 H Est GFR (CKD-EPI 2020) 50.40 Glucose 94 Calcium 8.4 L Time Spent with Patient Time Spent with Patient: 25-34 minutes Time was spent: preparing to see the patient(eg.review tests), referring, communicating with other health childbirth and infant care teacher, counseling the patient and care coordination
[2022-06-29] MEDS: Normal Saline Flush 10 ML SYR IVP ×2 (16:13→19:59)
[2022-06-29] MEDS: Heparin 5,000 UNITS/ML VIAL 5000 UNITS SC (18:42)
[2022-06-29] MEDS: Mirtazapine 15 MG TAB 7.5 MG PO (22:33)
[2022-06-29] MEDS: Senna TAB 1 TAB PO (22:34)
[2022-06-30 00:12] VITALS: BP 91/57; PULSE 58; O2SAT 95
[2022-06-30 02:07] VITALS: BP 93/55; PULSE 60; RESP 18; O2SAT 93
[2022-06-30] MEDS: Heparin 5,000 UNITS/ML VIAL 5000 UNITS SC ×2 (02:11→18:45)
[2022-06-30 07:04] LABS: Anion Gap 7.2 mmol/L (3-11); BUN 14 mg/dL (7-18); CO2 27.8 mmol/L (21.0-32.0); CREATININE 1.6 mg/dL (0.70-1.30); Chloride 105 mmol/L (98-107); Estimated GFR 46.64 (mL/min/1.73m2); Glucose 90 mg/dL (74-106); Potassium 4.5 mmol/L (3.5-5.1); Sodium 140 mmol/L (136-145)
[2022-06-30 07:30] VITALS: BP 93/56; PULSE 66; RESP 20; TEMP 36.6; O2SAT 1
[2022-06-30] MEDS: Budesonide/Formoterol 80/4.5 6.9 GM 60 PUFF INH IH ×2 (07:39→19:58)
[2022-06-30] MEDS: Tamsulosin 0.4 MG CAPCR PO (07:52)
[2022-06-30] MEDS: Dronabinol 2.5 MG CAP PO ×2 (07:52→17:39)
[2022-06-30] MEDS: Citalopram 10 MG TAB PO (07:52)
[2022-06-30] MEDS: Multivitamin TAB 1 TAB PO (07:52)
[2022-06-30] MEDS: Docusate Sodium 100 MG CAP PO ×2 (07:52→20:50)
[2022-06-30] MEDS: busPIRone 5 MG TAB PO ×3 (07:52→20:50)
[2022-06-30] MEDS: Normal Saline Flush 10 ML SYR IVP (07:52)
--- NOTE | 2022-06-30 09:06 | CMPROGNOTE_ITS ---
- If Service Date Differs Date of service: 06/30/22 Time of Service: 09:06 Care Management Progress Note S/O: Kelvin is planning on discharging to his son Reyes and TENZIN Duarte's home in [place], [place] with a plan to admit to hospice services on Wednesday. CM contacted [facility] to coordinate admission for Wednesday. [facility] will deliver Home O2, Walker, Shower chair, Commode and hospital bed on Wednesday evening or Wednesday morning. CM will follow. A: 67 year old male admitted to [facility] on 06/23/22 for Left Pneumothorax P: Anticipate, Kelvin will discharge to his sons home in [place], [place] with a plan to admit to hospice services through [facility]. Palliative is following. Per Kelvin, he will be driven by private vehicle. CM will follow.
--- NOTE | 2022-06-30 13:51 | PT.INTREAT ---
Date of service: 06/30/22 Time of Service: 13:30 PT Notes Visit Reasons: Left Side Pneumothorax, renal cancer with mets Inpatient Physical Therapy Treatment Note [facility] Date: 06/30/2022 PRECAUTIONS: Activity as tolerated SUBJECTIVE: Kelvin is pleasant and agreeable to participating in PT. He reports that he will be going to his son's home on Hospice as soon as all of his DME is delivered there. OBJECTIVE: Patient cleared for independent transfers and ambulation within his room at this time. PAIN: No c/o pain BED MOBILITY/TRANSFERS Sit-supine: I with HOB flat Supine-sit: I with HOB flat Sit-stand: I Stand-sit: I GAIT Assistive Device: FWW Weight bearing: Full Assist: S Distance: 300' Deviation: Minimal SOB, 1L O2 via NC ASSESSMENT: Patient tolerated session well, with minimal complaint of SOB with gait training. He continues to demonstrate steady gait and pacing with use of FWW. PLAN: Continue with general conditioning for improved activity tolerance. TREATMENT CODE/TIME: 15 minutes; [id number] (13:30)
[2022-06-30] MEDS: cefTRIAXone 2 GM/50 ML BAG IVPB (13:55)
[2022-06-30] MEDS: Normal Saline 500 ML 30 ML IV (13:56)
--- NOTE | 2022-06-30 14:50 | PCPN_ITS ---
Date of service: 06/30/22 Time of Service: 13:00 Assessment and Plan Assessment and plan (1) Metastatic renal cell carcinoma to lung: Status: Acute Assessment and plan: hospice diagnosis DME needs:O2, walker, commode, shower chair, hospital bed; not confirmed delivery plan for enrollment upon arrival at home on Wednesday (2) Pneumothorax on left: Status: Acute Assessment and plan: Chest tube w/Heimlich-valve, plan to keep in for now w/palliative intent; if becomes bothersome/painful may re-evaluate Hospice question for pulmonology/surgery: Would it need to be surgically removed or removed in home and covered w/dressing? (3) Dyspnea: Status: Acute Assessment and plan: significant source of fear plan for discharge w/portable O2 tank from [employer] (available at [facility]), ordered via [facility], to coordinate w/K[facility], CM and [facility] morphine concentrate 5mg (0.25mL) q1-4h PRN ordered w/[facility] for bean picker prior to discharge (4) Fear associated with illness and body function: Status: Acute Assessment and plan: as above plan for slow medicine, discharge delayed to Wed to give family time to set up home environment per patient's request reviewed need for PRN O2 and morphine PRN (5) Depression: Status: Chronic Assessment and plan: continue meds improved today (6) Advanced care planning/counseling discussion: Status: Acute Assessment and plan: reviewed hospice philosophy explored w/Kelvin, Reyes and Felicia separately different scenarios that could present and what path to follow, treatment and style of care (7) DNR (do not resuscitate): Status: Acute (8) DNI (do not intubate): Status: Acute (9) Discharge planning issues: Status: Acute Assessment and plan: plan for discharge home on [facility] hospice on Wednesday07/01/22 Subjective Subjective Interval history since last seen: Kelvin continues to feel well, more confident w/discharge plan for home on hospice to son Reyes's home worries about being on hospice meaning they will just hold him home and not treat him if he needed increased care comfortable w/plan to remain in hospital until Reyes's home is set up breathing comfortable, continues w/preference for O2 use; appetite is good; g etting out of bed appropriately, continues to feel week he is looking forward to spending time with his 5 y/o granddaughter visit cut short d/t visitors spoke to Reyes and Felicia - concerns w/hospice style care and when/how to pursue care/treatment if PRN issues develop; [facility] hospice has not delivered equipment as of 2pm today, they are ready preference for morphine Rx for [facility] [address] [facility] to remain in place for comfort portable O2 to be ordered for transfer home use PRN Exam Const General: cooperative, comfortable, no acute distress and frail appearing Nutritional Appearance: thin Orientation: alert, awake and oriented x3 HENMT Head: normocephalic and atraumatic Ears: hearing grossly normal bilaterally Resp Effort & Inspection: able to speak in complete sentences, no audible wheezes, no cough and labored Psych Appearance: grossly normal Speech and Movement: speech clear Mood: congruent mood Affect: normal affect Attitude: cooperative Objective Last Vital Signs Temp 97.9 F 06/30/22 07:30 Pulse 66 06/30/22 07:30 Resp 20 06/30/22 07:30 BP 93/56 L 06/30/22 07:30 Pulse Ox 1 L 06/30/22 07:30 Laboratory Results - last 24 hr 06/30/22 06:37 Sodium 140 Potassium 4.5 Chloride 105 Carbon Dioxide 27.8 Anion Gap 7.2 BUN 14 Creatinine 1.6 H Est GFR (CKD-EPI 2020) 46.64 Glucose 90 Calcium 9.0
[2022-06-30 15:39] VITALS: BP 96/66; PULSE 67; RESP 20; TEMP 37.1; O2SAT 98
--- NOTE | 2022-06-30 16:45 | CHAPLAIN ---
Kelvin had just finished cleaning up this morning when I visited. He was relaxed and resting in bed. He seemed more comfortable and less stressed than I've seen him in past days. He talked about being discharged to his son's home on hospice. Kelvin had some questions about what he would be treated for if he's on hospice, like a broken leg, or collapsed lung. I assured him that his comfort the main concern for hospice staff and if health issues arise outside his cancer diagnosis, he could request treat, and suggested he ask those questions of the hospice staff for his own peace of mind. 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 He said his life has been purposeful and he has taken care of his will and financial concerns so this his sons will not be left with complicated inheritance issues. We talked briefly about his beliefs around and dying. 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 Kelvin also spoke about his , who in October of pancreatic cancer. She held a celebration of her life before she and it sounded like a true celebration that created many good memories, and photos. One of the reasons he is going to live with his son and not return to his home, is to spend some time with his five year old granddaughter, so she will have memories of him and their relationship.
[2022-06-30 20:55] VITALS: BP 91/57; PULSE 69; RESP 16; TEMP 36.6; O2SAT 96
[2022-07-01] MEDS: Heparin 5,000 UNITS/ML VIAL 5000 UNITS SC ×2 (04:14→12:06)
[2022-07-01 04:49] VITALS: BP 106/67; PULSE 68; RESP 20; TEMP 36.3; O2SAT 98
[2022-07-01 04:55] VITALS: RESP 20; O2SAT 98
[2022-07-01 07:27] VITALS: BP 92/50; PULSE 65; RESP 12; TEMP 34.9; O2SAT 96
[2022-07-01] MEDS: busPIRone 5 MG TAB PO ×2 (08:04→13:28)
[2022-07-01] MEDS: Citalopram 10 MG TAB PO (08:05)
[2022-07-01] MEDS: Dronabinol 2.5 MG CAP PO (08:05)
[2022-07-01] MEDS: Tamsulosin 0.4 MG CAPCR PO (08:05)
[2022-07-01] MEDS: Multivitamin TAB 1 TAB PO (08:06)
[2022-07-01 08:10] VITALS: O2SAT 95
[2022-07-01] MEDS: Budesonide/Formoterol 80/4.5 6.9 GM 60 PUFF INH IH (08:19)
[2022-07-01] MEDS: Tiotropium Bromide-Respimat 10 PUFF INH 2 PUFF IH (08:19)
[2022-07-01 08:27] VITALS: O2SAT 99
--- NOTE | 2022-07-01 08:28 | RESPIRATORY ---
RT spoke with patient concerning the use of oxygen at home. Patient stated his baseline is 2L at home and the DME is [facility].
--- NOTE | 2022-07-01 08:56 | CMDISCH_ITS ---
- If Service Date Differs Date of service: 07/01/22 Time of Service: 08:56 LACE Index Scoring Tool - Questions: Length of Stay (in days): 7 - 13 Acuity (Admit via E.D.?): Yes Comorbidities: Metastatic Solid Tumor (Renal Cancer) E.D. Visits: 2 - Answers: Total Score: 15 Risk of Readmission: High Risk Care Management Discharge Reason for Hospitalization: Left Pneumothorax Discharge Plan: Kelvin is discharged to his son's home in [place], [place] with a plan to admit to [facility] H[facility] Services this afternoon. He is transported via private vehicle with Son Reyes and TENZIN Duarte. DME is delivered by [facility], RX for Morphine is ready at [facility] in [facility]. Kelvin will follow up with hospice/community providers and discharge plan of care as prescribed. Patient/Family Education Needs: Review discharge instructions, limitations, medications and plan to follow up with Hospice providers. Discuss ask me three and goals of self care. Services Needed at Discharge: DME Agency ([facility]: Hospital Bed and Home O2 are delivered. ), Home Health Care Services ([facility] and Hospice, same day admission planned. )
[2022-07-01 09:28] VITALS: RESP 16
--- NOTE | 2022-07-01 11:41 | W.PM.DS.N ---
Date of service: 07/01/22 Time of Service: 11:41 DS: Diagnosis Discharge Diagnosis (1) Metastatic renal cell carcinoma to lung: Status: Acute Asessment and Plan: End-stage. Possibly pleural metasteses as etiology of pneumothorax (2) Pneumothorax on left: Status: Acute Asessment and Plan: Pigtail catheter to remain in place; draining small amounts into bag. Maintain secure with tape to prevent dislodgment. Cover (with plastic wrap) when showering. (3) Dyspnea: Status: Acute Asessment and Plan: He continues to have intermittent air hunger but no hypoxemia. Prn morphine concentrate or, if hospice agrees, prn ativan. O2 at 1L per NC for comfort. (4) Depression: Status: Chronic Asessment and Plan: Now on citalopram. Mood and affect appear to have improved. (5) Advanced care planning/counseling discussion: Status: Acute Asessment and Plan: He will be admitted to [facility] Hospice at his sons' home in [facility]. 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 He presented for evaluation of shortness of breath.? He was at an oncology appointment with Dr. Jones a few buildings from [facility] when his physician noted the patient's dyspnea and increased work of breathing and called EMS.? Patient stated that over the last 3 to 4 days he had progressive worsening shortness of breath.? He is not normally on home oxygen.? He does live alone.? He stated that every night he has been driving to the parking lot of the emergency department out of concern that his shortness of breath might get worse and he might need to come in, but he had not come in for presentation.? He denied history of blood clot, history of cardiac disease or any other complaints. Past surgical history is positive for left-sided nephrectomy.? He denied any falls or trauma.? Upon evaluation in the ED, he underwent a CTA of the chest, and no blood clots were detected, but he was found to have a large left pneumothorax.? Dr. Garrido of the ED, placed a pigtial catheter in the left pleural space, and the pneumothorax nearly completely resolved, however, the patient had an ongong air leak. Admission to the surgical service was requested for chest tube management. The patient reported pain at the site of tube insertion, but his breathing felt much better and easier than at presentation. The patient usually obtains most of his medical care at [facility], and he emphasizes all of his records are there. An attempt was made to transfer him from the ED but no beds were available. Hospitalist consulted for medical management. Palliative Care consulted for goals of care. *See Diagnosis Home Meds and New Rx's Prescriptions: New buspirone 5 mg Tablet 5 mg PO TID Qty: 90 0RF citalopram 10 mg Tablet 10 mg PO DAILY Qty: 30 0RF dronabinol 2.5 mg Capsule 2.5 mg PO BID AC Qty: 30 0RF morphine [MS Contin] 15 mg Tablet Extended Release 15 mg PO Q12H Qty: 14 0RF mirtazapine 15 mg Tablet 7.5 mg PO HS Qty: 30 0RF Inhaler, Assist Devices [Pocket Chamber] 1 ea miscellaneous DIRECTED Qty: 0 0RF carboxymethylcellulose sodium [Refresh Plus] 0.5 % Dropperette 1 ea OU PRN PRN (Reason: Dry/itchy eyes) Qty: 0 0RF Continued morphine concentrate 100 mg/5 mL (20 mg/mL) solution 5 mg PO Q1-4H MDD 480 PRN (Reason: pain) Qty: 30 0RF acetaminophen [Acetaminophen Extra Strength] 500 MG tablet 1,000 mg PO Q6H PRN albuterol sulfate 90 mcg/actuation HFA aerosol inhaler 180 inh INHALATION Q4H Trelegy Ellipta 100-62.5-25 mcg blister with device 1 ea INHALATION DAILY Label Comments: INHALE ONE PUFF BY MOUTH EVERY DAY DIRECTED FOR 30 DAYS tamsulosin 0.4 mg capsule 1 cap PO DAILY Label Comments: TAKE ONE CAPSULE BY MOUTH EVERY DAY DIRECTED Discharge Instructions Instructions: Hospice Care (GEN) Stand Alone Forms: Nursing Discharge Form Referrals: [facility] [REPORT RECIPIENT] - (Home health will come to your house to see you. ) Activity:: Activity as Tolerated Equipment/Supplies:: No Equipment Needed Diet:: As Tolerated Discharge Orders Discharge Orders: Discharge Order (Routine); Ordered 07/01/22 Ordered By: Familia Ramirez DS: Summary Time Spent with Patient providing and/or coordinating discharge services: Greater than 30 minutes Status at Discharge Functional status at discharge: independent ambulation Overall status at discharge: patient is not back to baseline Mental Status: mental status grossly normal Speech and Movement: speech clear Mood: congruent mood Affect: normal affect Exam Narrative Exam Narrative: Pt is sitting on edge of bed He appears nontoxic. Pleasant and conversant. Lungs: clear anteriorly. Normal work of breathing. Chest tube / pigtail in place. Heart is rate is regular. No murmur Abdomen is scaphoid soft and nontender Extremities without edema Psych Mental Status: mental status grossly normal Speech and Movement: speech clear Mood: congruent mood Affect: normal affect DS: Data Vitals/I&O Vitals and I&O: Vital Signs Temperature 34.9 C L 07/01/22 07:27 Temperature Source Tympanic 07/01/22 07:27 Pulse 65 07/01/22 07:27 Pulse Rhythm Regular 07/01/22 10:44 Pulse 77 06/27/22 10:01 Respiratory Rate 16 07/01/22 09:28 Respiratory Effort 07/01/22 09:33 Respiratory Depth Normal 07/01/22 09:33 Respiratory Pattern Normal 07/01/22 09:33 Blood Pressure 92/50 L 07/01/22 07:27 Blood Pressure Mean 59 06/29/22 07:50 Blood Pressure Position Supine 06/27/22 08:11 Pulse Oximetry 99 07/01/22 08:27 Oxygen Delivery Method Nasal Cannula 07/01/22 09:28 Oxygen Flow Rate 1 07/01/22 09:28 Fraction of Inspired Oxygen (FIO2) 95 07/01/22 09:28 Pain Level 0 07/01/22 08:05 Comment 06/30/22 02:07 Intake & Output 06/30/22 06/30/22 07/01/22 11:59 23:59 11:59 Intake Total 960 / 1010 50 / 1010 240 / 240 Output Total 200 / 1025 825 / 1025 595 / 595 Balance 760 / -15 -775 / -15 -355 / -355 Intake: IV 50 / 50 Oral 960 / 960 240 / 240 Output: Urine 200 / 1025 825 / 1025 595 / 595 Other: Urine Color Yellow Yellow Yellow Urine Appearance Clear Clear Clear Urine Odor None None Comment bedside urinal. urinal from bedside Stool Occult Blood Negative Stool Size Smear Smear Moderate Stool Characteristics Soft Soft Soft Liquid Brown Voiding Methods Urinal Urinal Bedside Commode PFS All Active Problems At high risk for skin breakdown (Acute) Discharge planning issues (Acute) Fear associated with illness and body function (Acute) UTI (urinary tract infection) (Acute) Grief reaction (Chronic) DNI (do not intubate) (Acute) DNR (do not resuscitate) (Acute) Advanced care planning/counseling discussion (Acute) Metastatic renal cell carcinoma to lung (Acute) Renal cancer (Chronic) Sepsis (Acute) Palliative care patient (Acute) Depression (Chronic) Cachexia (Acute) COPD (chronic obstructive pulmonary disease) (Chronic) Pneumothorax on left (Acute) Dyspnea (Acute) Medical History Bladder cancer Surgical History H/O left nephrectomy Social History Smoking/Tobacco Use Status: Former Tobacco Use Smoking risk assessment performed?: Yes Alcohol Intake: never Drug use: Never Substance use type: marijuana Do you feel safe at home: Yes Do you feel safe in your relationship?: Yes Time Spent with Patient Time Spent with Patient: 45-69 minutes Time was spent: referring, communicating with other health continuum of care manager, indepentently interpreting results and care coordination
[2022-07-01] MEDS: Normal Saline 500 ML 30 ML IV (12:10)
[2022-07-01] MEDS: cefTRIAXone 2 GM/50 ML BAG IVPB (12:11)
[2022-07-01] MEDS: Protein Nutritional Supplement 16 GM 1 OUNCE PACKET PO (13:27)
--- NOTE | 2022-07-01 16:35 | PT.INDS ---
Date of service: 07/01/22 PT Notes Visit Reasons: Left Side Pneumothorax, renal cancer with mets Physical Therapy Inpatient Discharge Summary Date: June 27, 2022 Dates of Service: 06/27/2022 through 06/30/2022 This is a clinical summary of care provided for the duration of dates listed above. No charge was made in the completion of this documentation. 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 PMHX: All Active Problems (Updated 06/23/22 @ 20:13 by Reji Romero MD) Bladder cancer Renal cancer Surgical History (Updated 06/23/22 @ 20:13 by Reji Romero MD) H/O left nephrectomy Social History/Home Situation: Kelvin lives alone in [place].? He has 2 adult children,? a son David from [place] and a son Bob from [place]. Kelvin is independent at baseline and drives. Upon discharge from the hospital will be going to live with his son in [place]. Current Functional Limitations: Decreased mobility, functional transfers and SOB Subjective:? NT. See most recent STAFFING RECRUITER notes. Objective:? General Observation: NT. See most recent STAFFING RECRUITER notes. Mental Status: NT. See most recent STAFFING RECRUITER notes. Pain: NT. See most recent STAFFING RECRUITER notes. ROM: Right Upper Extremity: Demonstrates WNL AROM R UE with end range stiffness Left Upper Extremity: Demonstrates WNL AROM L UE with end range stiffness Right Lower Extremity: Demonstrates WNL AROM R LE Left Lower Extremity: Demonstrates WNL AROM L LE Strength: Right Upper Extremity: Good functional strength R UE Left Upper Extremity: Good functional strength L UE Right Lower Extremity: Good functional strength R LE Left Lower Extremity: Good functional strength L LE PAIN: No c/o pain ? BED MOBILITY/TRANSFERS? Sit-supine: I with HOB flat Supine-sit: I with HOB flat Sit-stand: I ? Stand-sit: I? GAIT? Assistive Device: FWW? Weight bearing: Full Assist: S ? Distance: 300'? Deviation: Minimal SOB, 1L O2 via NC Balance:? Static Sitting: Normal Dynamic Sitting: Good Static Standing: Good Dynamic Standing: Fair Special Tests: Mobility Limitations Standardized Measure [facility] AM-PAC 6 clicks Basic Mobility Inpatient Short Form: Raw Score: 24 ? CMS Score: 0% deficit Assessment:?? Patient goes home today on hospice. He has achieved all goals below using the FWW for support. Goals: Goals X1 week 1. Supine-Sit Independent MET 2. Sit-Supine Independent MET 3. Sit-Stand Independent MET 4. Stand-Sit Independent MET 5. Bed-Chair Supervision FWW MET 6. Chair-Bed Supervsion FWW MET 7. Gait FWW 50 ft, Supervision MET DISCHARGE RECOMMENDATIONS: Home with son in [place], [place] with Hospice services upon MD discharge TREATMENT CODE/TIME:? NC Thank you for the opportunity to participate in the care of this patient. Ly Tapia PT, DPT, CLT [facility] [place], [place]
== END 2022-07-01 13:54 | disposition hospice, home (50) | DRG 199 ==
LOC: ER 16:22 → MS 17:59 → ICU 06-26 07:39 → MS 06-29 14:49
PROVIDERS: Internal Medicine; Surgery; Admitting Provider Surgery; Emergency Provider Student in an Organized Health Care Education/Training Program; PCP Nurse Practitioner Family; Visit Provider Surgery
DX: J93.83 Other pneumothorax (principal); A41.9 Sepsis, unspecified organism; C65.1 Malignant neoplasm of right renal pelvis; C77.8 Secondary and unspecified malignant neoplasm of lymph nodes of multiple regions; R64 Cachexia; Z68.1 Body mass index [BMI] 19.9 or less, adult; N39.0 Urinary tract infection, site not specified; C78.2 Secondary malignant neoplasm of pleura; C78.00 Secondary malignant neoplasm of unspecified lung; C67.9 Malignant neoplasm of bladder, unspecified; Z85.528 Personal history of other malignant neoplasm of kidney; Z90.5 Acquired absence of kidney; Z87.891 Personal history of nicotine dependence; J44.9 Chronic obstructive pulmonary disease, unspecified; F32.A Depression, unspecified; Z66 Do not resuscitate
CPT/HCPCS: 32551; 36415; 71275; 76604; 76770; 80048; 80053; 82805; 84145; 85027; 87040; 87077; 87637; 93005; 94640; 96374; 97162; 97530; 99291; 71045; 81003; 81015; 83605; 83735; 83880; 84100; 84484; 85025; 85610; 85730; 86140; 87070; 87086; 87186; 87205; 93010; 99222; 99232; 99239; J1644; J2270; J7620